=== PATIENT | male | born 1960 | race Caucasian/White ===

== ENCOUNTER 2018-09-03 09:38 | Inpatient (IN) ==
[2018-09-03] MEDS ORDERED: Sod Chloride 0.9% Inj 1,000 ML IV.CONT ONE (12:50)
[2018-09-03] MEDS ORDERED: Clindamycin 600 mg/NS Premix 600 MG/50 ML PIGGYBACK IV.SIG SCH (13:00)
--- NOTE | 2018-09-03 13:18 | P.CONNP ---
History of Present Illness Service: Nephrology Consult date: 09/03/18 Requesting Physician: Fermín Staley Reason for Consult: End-stage renal disease Primary Care Provider: UNKNOWN History of Present Illness: Patient is a 58-year-old white male with history of end-stage renal disease due to hypertension, he received kidney transplant in December 1999 which failed in November 2012, he is doing hemodialysis, he states that he goes on Sunday and Sunday and was on dialysis for 2 hours and was taken off as kidney offered came, he denies any chest pain shortness of breath palpitations, he does have slight cough and postnasal drip which she attributes to seasonal allergies, he denies any fever or chills. Review of Systems Constitutional: Denies anorexia, Denies body ache(s), Denies chills, Denies daytime sleepiness, Denies excessive sweating, Denies fatigue, Denies fever(s), Denies headache(s), Denies increased appetite, Denies lack of energy, Denies malaise, Denies night sweats, Denies weakness, Denies weight gain, Denies weight loss, Denies other Eyes: Denies blind spots, Denies blurry vision, Denies bulging eyes, Denies change in vision, Denies double vision, Denies discharge, Denies dry eyes, Denies floaters, Denies irritation, Denies itchy eyes, Denies loss of vision, Denies pain, Denies requires corrective lenses, Denies sensitivity to light, Denies other Ears, Nose, Mouth, and Throat: Reports other (Postnasal drip) Cardiovascular: Denies chest pain, Denies chest pain at rest, Denies chest pain with activity, Denies excessive sweating, Denies fainting, Denies fast heart rate, Denies foot swelling, Denies generalized swelling, Denies irregular heart rhythm, Denies leg pain with activity, Denies leg sores, Denies leg swelling, Denies lightheadedness, Denies radiating jaw, neck or arm pain, Denies rapid, pounding, or irregular heartbeat, Denies shortness of breath, Denies shortness of breath with activity, Denies shortness of breath when lying down, Denies shortness of breath causing sudden awakening, Denies slow heart rate, Denies other Respiratory: Reports cough (Dry) Genitourinary: Reports other (On hemodialysis) Musculoskeletal: Denies abnormal walking, Denies back pain, Denies body aches, Denies decreased muscle mass, Denies deformity, Denies joint pain, Denies joint swelling, Denies limited joint movement, Denies loss of height, Denies muscle cramps, Denies muscle weakness, Denies neck pain, Denies numbness, Denies radiating pain into limb, Denies stiffness, Denies tingling, Denies other Skin/Breast: Denies acne, Denies bleeding lesions, Denies boil, Denies breast swelling, Denies breast skin changes, Denies breast pain, Denies breast lump, Denies change in breast shape, Denies change in hair, Denies change in skin color, Denies changing lesions, Denies dry skin, Denies excessive hair growth, Denies hair loss, Denies itching, Denies lesions, Denies nail changes, Denies new lesions, Denies nipple discharge, Denies non-healing lesions, Denies redness , Denies sensitivity to light, Denies rash, Denies skin pain, Denies skin ulcer , Denies sores, Denies stretch welsh, Denies unusual bruising, Denies wounds, Denies yellowing of the skin, Denies other Neurologic: Denies abnormal hearing, Denies abnormal movements, Denies abnormal speech, Denies abnormal walking, Denies behavioral changes, Denies burning sensations, Denies confusion, Denies dizziness, Denies fainting, Denies frequent falls, Denies headache(s), Denies lack of coordination, Denies localized weakness, Denies loss of vision, Denies memory loss, Denies numbness, Denies other visual disturbances, Denies radiating pain, Denies restless legs, Denies convulsions, Denies seizure-like activity, Denies sensory deficit, Denies tingling, Denies tingling/numbness/burning sensations, Denies tremor(s), Denies unsteadiness, Denies weakness, Denies other Psychiatric: Denies abnormal sleep pattern, Denies anxiety, Denies behavioral changes, Denies change in appetite, Denies change in sex drive, Denies confusion , Denies depression, Denies difficulty concentrating, Denies hearing things others do not hear, Denies hopelessness, Denies irritability, Denies lack of enjoyment, Denies memory loss, Denies mood swings, Denies panic attacks, Denies paranoia, Denies seeing things others do not see, Denies sensing things others do not sense, Denies tactile hallucinations, Denies thoughts of hurting/killing others, Denies thoughts of hurting/killing yourself, Denies other Endocrine: Denies cold intolerance, Denies excessive sweating, Denies flushing, Denies heat intolerance, Denies increased hunger, Denies increased thirst, Denies increased urination, Denies rapid, pounding, or irregular heartbeat, Denies other Allergic/Immunologic: Denies GI upset with certain foods, Denies hives, Denies itchy eyes, Denies lip swelling, Denies seasonal runny nose, Denies throat swelling, Denies tongue swelling, Denies wheezing, Denies other PMFSH - Medical History Medical History: Medical History (Last Reviewed 09/03/18 @ 13:15 by Morgan Ku MD) AVF (arteriovenous fistula) Deep vein blood clot of left lower extremity Diabetes mellitus HTN (hypertension) Kidney transplant failure Pneumonia Squamous cell carcinoma of skin of left lower extremity - Surgical History Surgical History: Surgical History (Last Reviewed 09/03/18 @ 13:15 by Morgan Ku MD) H/O elbow surgery Transplant recipient - Family History Family History: Family History (Last Reviewed 09/03/18 @ 13:16 by Morgan Ku MD) Mother Kidney failure HTN (hypertension) Sister Kidney failure Uncle Kidney failure - Social History I have reviewed the patient's Social History: Yes - Tobacco History Tobacco Use In Past 30 Days: No Medications and Allergies Active Medications: Active Medications Clindamycin/Sodium Chloride (Cleocin 600 Mg/Ns Premix) 600 mg in 50 mls @ 100 mls/hr 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 Stop: 09/06/18 12:51 Sodium Chloride (Ns Inj) 1,000 mls @ 40 mls/hr IV.CONT .Q24H ONE Stop: 09/04/18 12:49 Mycophenolate Mofetil (Cellcept) 1,000 mg PO ONCE NANETTE Stop: 09/06/18 12:51 Allergies Allergy/AdvReac Type Severity Reaction Status Date / Time piperacillin Allergy Severe Facial Unverified 06/06/17 01:37 Swelling tazobactam Allergy Severe Facial Unverified 06/06/17 01:37 Swelling Home Medications Medication Instructions Recorded Confirmed Type lanthanum [Fosrenol] 1,000 mg PO TID 05/15/18 05/15/18 History metoprolol succinate [Toprol XL] 100 mg PO DAILY 05/15/18 05/15/18 History nifedipine 60 mg PO DAILY 05/15/18 05/15/18 History Exam Narrative: Physical exam GENERAL: Well-nourished, well-developed patient. SKIN: Warm and dry. HEAD: Normocephalic. EYES: No scleral icterus. No injection or drainage. NECK: Supple, trachea midline. No JVD or lymphadenopathy. CARDIOVASCULAR: Regular rate and rhythm without murmurs, gallops, or rubs. RESPIRATORY: Breath sounds equal bilaterally. No accessory muscle use. GASTROINTESTINAL: Abdomen soft, non-tender, nondistended. EXTREMITIES: As above AV fistula left arm, chronic elbow swelling NEUROLOGICAL: Awake, alert, and oriented x 3. Non-focal. Assessment and Plan - Assessment (1) ESRD (end stage renal disease) on dialysis Code(s): N18.6 - End stage renal disease; Z99.2 - Dependence on renal dialysis Status: Acute (2) HTN (hypertension) Code(s): I10 - Essential (primary) hypertension Status: Acute - Plan Patient has received 2 hours of hemodialysis, he is doing well do not appear to be fluid overloaded, will check the blood work and it is likely that he may not need more dialysis We will check blood work and chest x-ray He can proceed with transplant kidney offer Discussed with Dr. Staley
--- NOTE | 2018-09-03 13:46 | P.HPIM ---
History of Present Illness Primary Care Physician: UNKNOWN Chief Complaint: kidney transplant History of Present Illness: Patient is a very pleasant 58-year-old white male with history of end-stage renal disease due to hypertension, he received kidney transplant in December 1999 which failed in November 2012, he is on HD Sunday and Sunday. Had dialysis for 2 hours in the morning today prior to admission. He is here for kidney transplant. Dr Staley surgeon is following. He denies any chest pain, shortness of breath, palpitations. Reports minimal cough and postnasal drip which she attributes to seasonal allergies, he denies any fever or chills. No n/ v/d/c. Inpatient Certification: I certify that the inpatient services were ordered in accordance with Medicare regulations governing the order. This includes certification that hospital inpatient services are reasonable and necessary and in the case of services not specified as inpatient-only under 42 CFR 419.22(n), that they are appropriately provided as inpatient services in accordance to with the 2-midnight benchmark under 43 CFR 412.3(e) Estimated Total Length of Stay (Days): 5 Plans for Post Hospital Care: Home Review of Systems All other systems reviewed negative except as stated in HPI PMFSH - History History Provided By: Patient, Family Member, Medical Record - Medical History Medical History: Medical History (Last Reviewed 09/03/18 @ 13:44 by Kirti Minor MD) AVF (arteriovenous fistula) Deep vein blood clot of left lower extremity Diabetes mellitus HTN (hypertension) Kidney transplant failure Pneumonia Squamous cell carcinoma of skin of left lower extremity - Surgical History Surgical History: Surgical History (Last Reviewed 09/03/18 @ 13:44 by Kirti Minor MD) H/O elbow surgery Transplant recipient - Family History Family History: Family History (Last Reviewed 09/03/18 @ 13:44 by Kirti Minor MD) Mother HTN (hypertension) Kidney failure Sister Kidney failure Uncle Kidney failure - Social History I have reviewed the patient's Social History: Yes - Tobacco History Tobacco Use In Past 30 Days: No - Alcohol History How Often Do You Have a Drink Containing Alcohol: Never - Substance Use History Substance History: No History of Abuse - Travel History History of Recent Travel: No Recent Travel in the [place] Within the Last 8 Weeks: No Recent Travel Out of the Country Within the Last 8 Weeks: No Medications and Allergies Active Medications: Active Medications Atorvastatin Calcium (Lipitor) 40 mg PO HS [facility] Clindamycin/Sodium Chloride (Cleocin 600 Mg/Ns Premix) 600 mg in 50 mls @ 100 mls/hr 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 [facility] Stop: 09/06/18 12:51 Sodium Chloride (Ns Inj) 1,000 mls @ 40 mls/hr IV.CONT .Q24H ONE Stop: 09/04/18 12:49 Metoprolol Tartrate (Lopressor) 100 mg PO DAILY [facility] Mycophenolate Mofetil (Cellcept) 1,000 mg PO ONCE [facility] Stop: 09/06/18 12:51 Allergies Allergy/AdvReac Type Severity Reaction Status Date / Time piperacillin Allergy Severe Facial Verified 09/03/18 15:38 Swelling tazobactam Allergy Severe Facial Verified 09/03/18 15:38 Swelling Home Medications Medication Instructions Recorded Confirmed Type lanthanum [Fosrenol] 1,000 mg PO TIDAC 05/15/18 09/03/18 History metoprolol succinate [Toprol XL] 100 mg PO 3XW 05/15/18 09/03/18 History atorvastatin 40 mg PO DAILY 09/03/18 09/03/18 History Exam Narrative: GENERAL: Very pleasant 58 yo male, well nourished well developed patient , in nad. SKIN: Warm and dry. HEAD: Atraumatic. Normocephalic. EYES: Pupils equal and round. No scleral icterus. No injection or drainage. ENT: No nasal bleeding or discharge. Mucous membranes pink and moist. NECK: Trachea midline. No JVD. CARDIOVASCULAR: Regular rate and rhythm. RESPIRATORY: No accessory muscle use. Clear to auscultation. Breath sounds equal bilaterally. GASTROINTESTINAL: Abdomen soft, non-tender, nondistended. Hepatic and splenic margins not palpable. MUSCULOSKELETAL: AV Fistula left arm , + bruit. Extremities without clubbing, cyanosis, or edema. No obvious deformities. NEUROLOGICAL: Awake and alert. No obvious cranial nerve deficits. Motor grossly within normal limits. Five out of 5 muscle strength in the arms and legs. Normal speech. PSYCHIATRIC: Appropriate mood and affect; insight and judgment normal. Results - Labs CBC & Chem 7: 09/03/18 13:32 09/03/18 13:32 Caprini VTE Risk Assessment Caprini VTE Risk Assessment: No/Low Risk (score <= 1) Caprini Risk Assessment Model: Point Value = 1 Point Value = 2 Point Value = 3 Point Value = 5 Age 41-60 Minor surgery BMI > 25 kg/m2 Swollen legs Varicose veins or History of unexplained or recurrent spontaneous Oral contraceptives or hormone replacement Sepsis (< 1 month) Serious lung disease, including pneumonia (< 1 month) Abnormal pulmonary function Acute myocardial infarction Congestive heart failure (< 1 month) History of inflammatory bowel disease Medical patient at bed rest Age 61-74 Arthroscopic surgery Major open surgery (> 45 min) Laparoscopic surgery (> 45 min) Malignancy Confined to bed (> 72 hours) Immobilizing plaster cast Central venous access Age >= 75 History of VTE Family history of VTE Factor V Leiden Prothrombin [id number] Lupus anticoagulant Anticardiolipin antibodies Elevated serum homocysteine Heparin-induced thrombocytopenia Other congenital or acquired thrombophilia Stroke (< 1 month) Elective arthroplasty Hip, pelvis, or leg fracture Acute spinal cord injury (< 1 month) Prophylaxis Regimen: Total Risk Factor Score Risk Level Prophylaxis Regimen 0-1 Low Early ambulation 2 Moderate Order ONE of the following: *Sequential Compression Device (SCD) *Heparin 5000 units SQ BID 3-4 Higher Order ONE of the following medications: *Heparin 5000 units SQ TID *Enoxaparin/Lovenox 40 mg SQ daily (WT < 150 kg, CrCl > 30 mL/min) *Enoxaparin/Lovenox 30 mg SQ daily (WT < 150 kg, CrCl > 10-29 mL/min) *Enoxaparin/Lovenox 30 mg SQ BID (WT < 150 kg, CrCl > 30 mL/min) AND/OR *Sequential Compression Device (SCD) 5 or more Highest Order ONE of the following medications: *Heparin 5000 units SQ TID (Preferred with Epidurals) *Enoxaparin/Lovenox 40 mg SQ daily (WT < 150 kg, CrCl > 30 mL/min) *Enoxaparin/Lovenox 30 mg SQ daily (WT < 150 kg, CrCl > 10-29 mL/min) *Enoxaparin/Lovenox 30 mg SQ BID (WT < 150 kg, CrCl > 30 mL/min) AND *Sequential Compression Device (SCD) Assessment and Plan - Plan ESRD (end stage renal disease) on dialysis HTN (hypertension) s/p 2 hours of hemodialysis in the morning FLORIST Check CBC, BMP Check chest x-ray He can proceed with transplant kidney offer per Dr Ku Plan for kidney transplant per surgeon DVT ppx per surgeon Discussed Condition With: patient, family- at bedside, Dr Staley transplant surgeon
[2018-09-03 14:01] LABS: Baso % (Auto) 0.9 % (0.0-2.0); Eos # (Auto) 0.3 th/mm3 (0.0-0.4); Eos % (Auto) 4.7 % (0.0-4.0); Hematocrit 40.6 % (39.0-51.0); Hemoglobin 13.5 gm/dL (13.0-17.0); Lymph # (Auto) 1.5 th/mm3 (1.0-4.8); Lymph % (Auto) 27.1 % (9.0-44.0); Mean Corpuscular HGB Conc 33.2 % (32.0-36.0); Mean Corpuscular Hemoglobin 30.7 pg (27.0-34.0); Mean Corpuscular Volume 92.6 fL (80.0-100.0); Mean Platelet Volume 7.7 fL (7.0-11.0); Mono # (Auto) 0.6 th/mm3 (0.0-0.9); Mono % (Auto) 11.6 % (0.0-8.0); Neut % (Auto) 55.7 % (16.0-70.0); Platelet Count 180 th/mm3 (150-450); Red Blood Count 4.39 mil/mm3 (4.50-5.90); Red Cell Distribution Width 16.8 % (11.6-17.2); White Blood Count 5.4 th/mm3 (4.0-11.0)
[2018-09-03 14:08] LABS: Activated Partial Thrombo Time 27.6 sec (23.4-31.7); Prothrombin Time 10.4 sec (9.8-11.6)
[2018-09-03 14:14] LABS: Alkaline Phosphatase 121 U/L (45-117)
[2018-09-03 14:25] LABS: Alanine Aminotransferase 23 U/L (12-78); Albumin 3.4 g/dL (3.4-5.0); Anion Gap 11 meq/L (5-15); Aspartate Aminotransferase 15 U/L (15-37); Blood Urea Nitrogen 86 mg/dL (7-18); Calcium 8.5 mg/dL (8.5-10.1); Carbon Dioxide 28.5 meq/L (21.0-32.0); Chloride 100 meq/L (98-107); Glomerular Filtration Rate 5 mL/min (>89); Glucose,Random 83 mg/dL (74-106); Potassium 5.4 meq/L (3.5-5.1); Sodium 139 meq/L (136-145)
--- NOTE | 2018-09-03 14:41 | XR ---
EXAM DATE: 09/03/2018 2:38 PM EST AGE/SEX: 58 years / Male INDICATIONS: Evaluate for pneumonia, pneumothorax, or communicable disease. Pre op for kidney transp lant. CLINICAL DATA: This is the patient's initial encounter. Patient reports that signs and symptoms have been present for 1 day and indicates a pain score of 0/10. MEDICAL/SURGICAL HISTORY: Deep venous thrombosis. Diabetes. Hypertension. Renal transplant. COMPARISON: No prior exams available for comparison. FINDINGS: The heart and mediastinal contours are within normal limits. There are chronic interstitial changes w ithin the pulmonary parenchyma. There is no pleural effusion. The visualized bony structures are vincent sly intact. CONCLUSION: Chronic appearing interstitial fibrotic changes within the pulmonary parenchyma. No focal or segmenta l pneumonia. Electronically signed by: Jayy Crawford MD 09/03/2018 2:39 PM EST
--- NOTE | 2018-09-03 15:23 | P.CONTS ---
History of Present Illness Service: Transplant Surgery Consult date: 09/03/18 Requesting Physician: Kirti Minor Reason for Consult: Admission for possible donor renal transplant Primary Care Provider: UNKNOWN Chief Complaint: ESRD History of Present Illness: Mr Greg Gonzalez is a 58 year old male with the primary diagnosis of hypertension who completed a kidney transplant evaluation and was approved by our Kidney Listing Committee. A possible kidney donor has been found for him (final transplant crossmatch is pending). Donor UNOS ID: [id number]. 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 His last dialysis was this morning for 2 hours. And the time of admission, patient has been anuric for a few years. In the recent days he denies any fevers, recent hospitalizations, and any significant change in his health since he was last seen in our [facility]. Review of Systems Constitutional: Denies anorexia, Denies body ache(s), Denies chills, Denies daytime sleepiness, Denies excessive sweating, Denies fatigue, Denies fever(s), Denies headache(s), Denies increased appetite, Denies lack of energy, Denies malaise, Denies night sweats, Denies weakness, Denies weight gain, Denies weight loss, Denies other Eyes: Denies blind spots, Denies blurry vision, Denies bulging eyes, Denies change in vision, Denies double vision, Denies discharge, Denies dry eyes, Denies floaters, Denies irritation, Denies itchy eyes, Denies loss of vision, Denies pain, Denies requires corrective lenses, Denies sensitivity to light, Denies other Ears, Nose, Mouth, and Throat: Denies abnormal hearing, Denies bleeding gums, Denies bad breath, Denies change in voice, Denies dental pain, Denies difficulty swallowing, Denies dizziness, Denies dry mouth, Denies ear discharge , Denies ear pain, Denies facial pain, Denies headache(s), Denies hearing loss, Denies hoarseness, Denies lip swelling, Denies nosebleed, Denies mouth lesions, Denies mouth pain, Denies nasal congestion, Denies nasal discharge, Denies nasal obstruction, Denies nasal trauma, Denies neck lump, Denies neck pain, Denies nose pain, Denies pain with swallowing, Denies poor balance, Denies post nasal drip, Denies ringing in the ears, Denies sinus pain, Denies sinus pressure , Denies sore throat, Denies throat swelling, Denies tongue swelling, Denies other Cardiovascular: Denies chest pain, Denies chest pain at rest, Denies chest pain with activity, Denies excessive sweating, Denies fainting, Denies fast heart rate, Denies foot swelling, Denies generalized swelling, Denies irregular heart rhythm, Denies leg pain with activity, Denies leg sores, Denies leg swelling, Denies lightheadedness, Denies radiating jaw, neck or arm pain, Denies rapid, pounding, or irregular heartbeat, Denies shortness of breath, Denies shortness of breath with activity, Denies shortness of breath when lying down, Denies shortness of breath causing sudden awakening, Denies slow heart rate, Denies other Respiratory: Reports cough Comments: nonproductive (? secondary to post-nasal drip from allergies) Gastrointestinal: Denies abdominal pain, Denies belching, Denies black, tarry stools, Denies bloating, Denies bright, red blood in stools, Denies change in bowel habits, Denies constant urge to pass stool, Denies change in stools, Denies coffee ground vomit, Denies constipation, Denies cramping, Denies difficulty swallowing, Denies excessive passing of gas, Denies feeling full early, Denies heartburn, Denies incontinent of stools, Denies loose stools, Denies nausea, Denies pain with swallowing, Denies vomiting, Denies vomiting blood, Denies other Genitourinary: Denies blood in semen, Denies blood in urine, Denies decreased urination, Denies difficulty urinating, Denies difficulty with ejaculations, Denies erectile dysfunction, Denies genital lesions, Denies genital pain, Denies painful urination, Denies side pain, Denies frequent nighttime urination , Denies painful ejaculations, Denies penile discharge, Denies scrotal swelling , Denies testicle lump, Denies testicle pain, Denies urinary frequency, Denies urinary hesitancy, Denies urinary incontinence, Denies urinary urgency, Denies other Comments: anuric Musculoskeletal: Denies abnormal walking, Denies back pain, Denies body aches, Denies decreased muscle mass, Denies deformity, Denies joint pain, Denies joint swelling, Denies limited joint movement, Denies loss of height, Denies muscle cramps, Denies muscle weakness, Denies neck pain, Denies numbness, Denies radiating pain into limb, Denies stiffness, Denies tingling, Denies other Skin/Breast: Denies acne, Denies bleeding lesions, Denies boil, Denies breast swelling, Denies breast skin changes, Denies breast pain, Denies breast lump, Denies change in breast shape, Denies change in hair, Denies change in skin color, Denies changing lesions, Denies dry skin, Denies excessive hair growth, Denies hair loss, Denies itching, Denies lesions, Denies nail changes, Denies new lesions, Denies nipple discharge, Denies non-healing lesions, Denies redness , Denies sensitivity to light, Denies rash, Denies skin pain, Denies skin ulcer , Denies sores, Denies stretch welsh, Denies unusual bruising, Denies wounds, Denies yellowing of the skin, Denies other Neurologic: Denies abnormal hearing, Denies abnormal movements, Denies abnormal speech, Denies abnormal walking, Denies behavioral changes, Denies burning sensations, Denies confusion, Denies dizziness, Denies fainting, Denies frequent falls, Denies headache(s), Denies lack of coordination, Denies localized weakness, Denies loss of vision, Denies memory loss, Denies numbness, Denies other visual disturbances, Denies radiating pain, Denies restless legs, Denies convulsions, Denies seizure-like activity, Denies sensory deficit, Denies tingling, Denies tingling/numbness/burning sensations, Denies tremor(s), Denies unsteadiness, Denies weakness, Denies other Psychiatric: Denies abnormal sleep pattern, Denies anxiety, Denies behavioral changes, Denies change in appetite, Denies change in sex drive, Denies confusion , Denies depression, Denies difficulty concentrating, Denies hearing things others do not hear, Denies hopelessness, Denies irritability, Denies lack of enjoyment, Denies memory loss, Denies mood swings, Denies panic attacks, Denies paranoia, Denies seeing things others do not see, Denies sensing things others do not sense, Denies tactile hallucinations, Denies thoughts of hurting/killing others, Denies thoughts of hurting/killing yourself, Denies other Endocrine: Denies cold intolerance, Denies excessive sweating, Denies flushing, Denies heat intolerance, Denies increased hunger, Denies increased thirst, Denies increased urination, Denies rapid, pounding, or irregular heartbeat, Denies other Hematologic/Lymphatic: Denies easy bleeding, Denies easy bruising, Denies enlarged lymph nodes, Denies other Allergic/Immunologic: Denies GI upset with certain foods, Denies hives, Denies itchy eyes, Denies lip swelling, Denies seasonal runny nose, Denies throat swelling, Denies tongue swelling, Denies wheezing, Denies other PMFSH - History History Provided By: Patient, Family Member, Medical Record - Medical History Medical History: Medical History (Last Reviewed 09/03/18 @ 15:17 by Fermín Staley MD) AVF (arteriovenous fistula) Deep vein blood clot of left lower extremity Diabetes mellitus HTN (hypertension) Kidney transplant failure Pneumonia Squamous cell carcinoma of skin of left lower extremity - Surgical History Surgical History: Surgical History (Last Reviewed 09/03/18 @ 15:17 by Fermín Staley MD) H/O elbow surgery Transplant recipient - Family History Family History: Family History (Last Reviewed 09/03/18 @ 15:17 by Fermín Staley MD) Mother Kidney failure HTN (hypertension) Sister Kidney failure Uncle Kidney failure - Social History I have reviewed the patient's Social History: Yes - Tobacco History Second Hand Smoke Exposure: No Tobacco Use In Past 30 Days: No Smoking Status: Never smoker - Alcohol History How Often Do You Have a Drink Containing Alcohol: Never - Substance Use History Substance History: No History of Abuse - Travel History History of Recent Travel: No Recent Travel in the [place] Within the Last 8 Weeks: No Recent Travel Out of the Country Within the Last 8 Weeks: No - Immunization History Tetanus Immunization: <5 Years Hx Influenza Vaccine This Season: No Pediatric Immunizations Up to Date: Yes (N/A) Medications and Allergies Active Medications: Active Medications Atorvastatin Calcium (Lipitor) 40 mg PO HS NANETTE Clindamycin/Sodium Chloride (Cleocin 600 Mg/Ns Premix) 600 mg in 50 mls @ 100 mls/hr IV.SIG HEAD MILLER NANETTE Stop: 09/06/18 12:51 Sodium Chloride (Ns Inj) 1,000 mls @ 40 mls/hr IV.CONT .Q24H ONE Stop: 09/04/18 12:49 Metoprolol Succinate (Toprol Xl) 100 mg PO DAILY NANETTE Mycophenolate Mofetil (Cellcept) 1,000 mg PO ONCE NANETTE Stop: 09/06/18 12:51 Allergies Allergy/AdvReac Type Severity Reaction Status Date / Time piperacillin Allergy Severe Facial Unverified 06/06/17 01:37 Swelling tazobactam Allergy Severe Facial Unverified 06/06/17 01:37 Swelling Home Medications Medication Instructions Recorded Confirmed Type lanthanum [Fosrenol] 1,000 mg PO TID 05/15/18 05/15/18 History metoprolol succinate [Toprol XL] 100 mg PO DAILY 05/15/18 05/15/18 History Physical Exam Vital signs: Vital Signs 09/03/18 14:06 Temperature 97.6 F Pulse Rate 72 Respiratory Rate 18 Blood Pressure 151/82 H Pulse Oximetry 98 Intake & Output 09/02/18 09/03/18 09/03/18 18:59 06:59 18:59 Weight 100.5 kg Other: Date of Last Bowel Movement 09/02/18 Weight On Admission 100.5 kg - Constitutional no acute distress - Routine HEENT Exam Head: Present: normocephalic, atraumatic Eye: Present: EOMI ENT: Present: mucous membranes moist - Routine Neck Exam Present: supple, full ROM - Routine Respiratory Exam Present: CTA bilaterally - Routine Cardiovascular Exam Present: RRR, S1, S2 - Routine Abdominal Exam Present: soft, normoactive bowel sounds - Routine Extremities Exam Comments: AV fistula left forearm. Palpable DP/PT bilaterally. ? somewhat diminished femoral pulses (? due to body habitus) - Routine Skin Exam Present: intact - Routine Neurological Exam Present: alert, oriented X3 - Detailed Neurological Exam: Coma Scale Verbal Response: Oriented - Routine Psychiatric Exam Present: normal affect, normal thought process Assessment and Plan - Assessment (1) ESRD (end stage renal disease) on dialysis Code(s): N18.6 - End stage renal disease; Z99.2 - Dependence on renal dialysis Status: Acute (2) HTN (hypertension) Code(s): I10 - Essential (primary) hypertension Status: Acute - Plan Mr Greg Gonzalez has ESRD secondary to htn, and is being admitted for possible donor kidney transplantation. The patient will be consented for procedure and transfusion A PHS increased Risk Consent is not required. The patient is being admitted to the Hospitalists Service. The Transplant Nephrology Service will be consulted. The patient will be assigned to Case Management/Inpatient Status
[2018-09-03] MEDS ORDERED: Sod Chloride 0.9% Inj 1,000 ML IV.CONT PRN (15:29)
[2018-09-03] MEDS ORDERED: Sod Chloride 0.9% Inj 1,000 ML OTHER PRN ×2 (15:29)
[2018-09-03] MEDS ORDERED: Acetaminophen 325 MG Tablet PO PRN (15:29)
[2018-09-03] MEDS ORDERED: Gelatin 12 MM/7 MM Topical Foam TOPICAL PRN (15:29)
[2018-09-03] MEDS ORDERED: Albumin Human 25% Inj 100 ML IV.SIG PRN (15:29)
[2018-09-03] MEDS ORDERED: Acetaminophen 325 MG Tablet PO ONE (15:48)
[2018-09-03] MEDS ORDERED: Hydrocortisone Sod Succinate 100 MG Vial IV.PUSH PRN (15:48)
[2018-09-03] MEDS ORDERED: Heparin 10,000 UNITS/10 ML Vial (for IV use) ONE (17:56)
[2018-09-03] MEDS ORDERED: MethylPREDNISolone Sod Succinate Inj 125 MG/2 ML Vial ONE (19:01)
[2018-09-03] MEDS ORDERED: [UNRECOGNIZED DRUG - OTHER] ONE (19:20)
[2018-09-03] MEDS ORDERED: Furosemide Inj 10 ML ONE (19:24)
[2018-09-03] MEDS ORDERED: MethylPREDNISolone Sod Succinate Inj 125 MG/2 ML Vial IV.SIG ONE (20:00)
[2018-09-03] MEDS ORDERED: MethylPREDNISolone Sod Suc Inj 500 MG in Sodium Chlor 0.9% Inj 100 ML IV.SIG ONE (20:00)
[2018-09-03] MEDS ORDERED: ANTITHYMOCYTE IG IV.SIG ONE (20:00)
[2018-09-03] MEDS ORDERED: SODIUM CHLOR 0.9% IV.SIG ONE (20:00)
[2018-09-03] MEDS ORDERED: diphenhydrAMINE HCl 50 MG/ML VIAL IV.PUSH ONE (22:49)
[2018-09-03] MEDS ORDERED: fentaNYL Citrate Inj 100 MCG/2 ML Ampul ONE (22:53)
[2018-09-03] MEDS ORDERED: Albumin Human 5% Inj 500 ML IV.SIG ONE (23:05)
[2018-09-04] MEDS ORDERED: Morphine Inj 4 MG/ML Vial IV.SIG ONE (01:28)
[2018-09-04] MEDS ORDERED: Naloxone Inj 0.4 MG/ML Vial IV.PUSH PRN (01:28)
[2018-09-04] MEDS ORDERED: Dextrose 50% in Water 50 ML Vial IV.PUSH PRN ×2 (01:28→09:44)
--- NOTE | 2018-09-04 01:33 | P.OP ---
Preoperative Diagnosis: desire for renal transplant due to ESRD Postoperative Diagnosis: donor renal transplant to left iliac fossa for ESRD Date of procedure: 09/03/18 (Operation began on 09/03/18 and completed on ) Procedure: donor renal transplant, backbench preparation of allograft, venous reconstruction X 2 of donor caval extension graft, ureteral stent placement INDICATIONS: Mr. Gonzalez is a 58 year-old who has end stage renal disease and wishes to have a kidney transplant after his first one failed several years ago. He was thoroughly evaluated in our clinic and was found to be an adequate candidate for transplant surgery. 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 He had a high CPRA of 99% and a regional offer became available today. The crossmatch was acceptable so we proceeded to surgery. PROCEDURE: After informed consent was obtained from the patient prior to surgery and the ABO was reviewed via primary source times two for each the recipient and donor prior to surgery today, the recipient was brought into the OR and safely placed under general endotracheal anesthesia after the debriefing was performed. The ABO verification form was in the room with the patient and the renal allograft. The [employer] file was checked and the donor ABO verified X 2 and recorded onto the ABO form with the Candidate ABO verified X 2 in EPIC and recorded on the ABO verification form. The candidate's name was seen on the match run in [employer]. The donor blood type was O and the recipient blood type O. As the anesthesia service was preparing the patient, I prepared the renal allograft on the back table by removing all extraneous connective tissue. There was a single artery, vein and ureter of sufficient length. Since this was a right kidney, the cephalad and caudal cava were reconstructed. I needed to suture the cephalad portion of the cava since it was cut close to the right renal vein and the lower cava we could staple. The kidney was stored in sterile ice with preservative solution and covered with sterile towel. The patient had a Donohue catheter placed sterilely, and the abdomen was prepped and draped in the usual sterile fashion. We then did our standard surgical time out, reviewing the patient, allergies, antibiotics, operation to be performed, immunosuppression medications and ABO of the donor and recipient. All agreed and we proceeded. The anesthesia service acknowledged the administration of the IV Solumedrol 250 mg and Thymoglobulin infusiton. We then made the left lower quadrant oblique incision from an area about two centimeters medial to the anterior iliac spine to the pubic symphysis. We were able to go through the skin, subcutaneous tissue, fascia, and into the right retroperitoneal space. We were able to stay out of the peritoneum throughout the entire operation. We kept the cord structures mobilized out of harm's way. We spared the epigastric vessels. We had excellent exposure of the external iliac artery and vein and carefully dissected these free of the nerve, keeping this lateral and out of harm's way. The vessels felt of very good caliber, and there was no obvious abnormality in the vein or the artery. We gave the patient 2,000 units of intravenous heparin, allowed this to circulate for three minutes. We used two vascular bulldog clamps on the iliac vein and opened the vein with the 11-blade, Merino scissors, and Hepflush. We anastomosed the donor renal vein to the recipient left external iliac vein using 5-0 Prolene in our four-quadrant standard technique. When this venous anastomosis was completed, we went ahead and placed a Satinsky vascular clamp on the left external iliac artery, opened into the iliac artery with the 11- blade. Then we used 5-0 Prolene, placing a cephalad stitch, and then we were able to anastomose the arteries under direct visualization in a continuous open fashion. When the arterial anastomosis was complete and tied, we went ahead and placed gentle vascular bull-dog clamps on the renal artery and renal vein proper, where we removed first the iliac vein clamps and allowed for flow across the venous anastomosis, and there was with excellent hemostasis. We then allowed for the distal artery to open. The anastomotic area opened nicely , signifying no technical issues. We then allowed for forward flow from the artery down the leg. There was excellent flow, again with no need for any suture repair across the anastomosis. We then removed the clamps from the renal artery and vein proper, allowed for flow into and out of the kidney, placed warm irrigation all around the kidney to allow it to go ahead and vasodilate nicely, and there was no need for any suture repairs. Hemostasis was obtained by the use of clips or ties as necessary. Electrocautery was used on the capsule as necessary. The kidney pinked up nicely. The patient was given our standard mannitol 25 gm as well as Lasix 100 mg IV and the second dose of Solumedrol 250 mg IV prior to reperfusion of the allograft. He tolerated this well. We then went ahead and placed the kidney into the left iliac fossa. It laid nicely and had good color. We then repositioned our Bookwalter retractor and had good exposure of the bladder. The antibiotic irrigant was flushed into the bladder. The bladder was small. We were able to safely enter into the bladder, place our PDS sutures. We then made sure the ureter laid in its correct position. We opened opposite its blood supply with the tenotomy scissors. We shortened it to the appropriate length and then we did our standard mary-ureterocystotomy using 6-0 PDS suture in a running technique. We did place a ureteral stent into the transplant ureter into the collecting system and it laid nicely and then into the bladder. When this was completed we placed two Lembert type sutures of 6-0 PDS. We tied these over a right angle so as not to obstruct. We had good hemostasis. We irrigated again with antibiotic solution. Again the kidney laid nicely in the left iliac fossa. The vessels were laying nicely , with no signs of any obstruction either inflow or outflow. We went ahead and did the count as we prepared to close the fascia. The count was correct. We went ahead and closed the fascia with running #1 PDS suture starting from each end of the wound and tying in the middle. We used some 3-0 Vicryl to reapproximate Silvestre's in an interrupted fashion. We then used Monocryl to approximate the skin. We had final instrument and sponge counts correct times two. It should be noted that I was scrubbed during the entire operation. Implants: ureteral stent Anesthesia: GETA Surgeon: Deacon Sarmiento MD was primary for back table bench preparation of allograft , reconstruction of venous anastomosis X 2, and 1st radiology assistant for the renal transplant; Dr. Staley was primary for renal transplant Estimated blood loss (mL): 100 Pathology: none sent Operation and Findings: good flow into renal allograft, small bladder
[2018-09-04] MEDS ORDERED: fentaNYL Citrate Inj 100 MCG/2 ML Ampul ONE (01:39)
[2018-09-04] MEDS: Dextrose 5%/NaCl 0.45% Inj 1,000 ML IV.CONT SCH (01:40)
[2018-09-04] MEDS ORDERED: *morphine SULFATE 4 MG/ML PERIprocedure ONLY ONE ×2 (01:51→02:10)
[2018-09-04 02:06] LABS: Hematocrit 37.4 % (39.0-51.0); Hemoglobin 12.3 gm/dL (13.0-17.0); Mean Corpuscular HGB Conc 32.8 % (32.0-36.0); Mean Corpuscular Hemoglobin 30.1 pg (27.0-34.0); Mean Corpuscular Volume 91.8 fL (80.0-100.0); Mean Platelet Volume 7.2 fL (7.0-11.0); Platelet Count 115 th/mm3 (150-450); Red Blood Count 4.08 mil/mm3 (4.50-5.90); Red Cell Distribution Width 16.8 % (11.6-17.2); White Blood Count 2.2 th/mm3 (4.0-11.0)
--- NOTE | 2018-09-04 02:24 | XR ---
EXAM DATE: 09/04/2018 2:11 AM EST AGE/SEX: 58 years / Male INDICATIONS: Central line placement. CLINICAL DATA: This is the patient's subsequent encounter. Patient reports that signs and symptoms h ave been present for 2 days and indicates a pain score of Nonresponsive. MEDICAL/SURGICAL HISTORY: . Deep venous thrombosis. Diabetes. Hypertension. . Renal transplant . COMPARISON: 09/03/2008.. FINDINGS: A single AP view of the chest demonstrates the lungs to be symmetrically aerated without evidence of mass, infiltrate or effusion. The cardiomediastinal contours are unremarkable. Osseous structures a re intact. There is been interval placement of a right internal jugular central venous line with tip projected over the superior vena cava. There is no pneumothorax. CONCLUSION: Interval placement of central venous line with no pneumothorax. Electronically signed by: David Ricks MD 09/04/2018 2:23 AM EST
--- NOTE | 2018-09-04 02:27 | P.OP ---
- Preoperative Diagnosis (1) ESRD (end stage renal disease) on dialysis (2) HTN (hypertension) - Postoperative Diagnosis (1) ESRD (end stage renal disease) on dialysis (2) HTN (hypertension) Date of procedure: 09/04/18 (Begun on 09/03/2018 and finished on 09/04/2018) Procedure: donor kidney transplant to left iliac fossa with neoureterocystostomy Implants: 6 x12 double j ureteral stent Anesthesia: GETA Surgeon: Fermín Staley MD Switchboard Operator Assistant: Deacon Sarmiento Estimated blood loss (mL): 100 IV fluids (mL): 1,800 Urine output (mL): 0 Operation and Findings: Cold ischemic time: 18 hours 7 minutes Warm ischemic time: 30 minutes Intra-Op Findings: No signifianct iliac artery calcifications. good flow into and out of renal allograft after reperfusion Informed consent was obtained from the patient prior to surgery and the ABO was reviewed via primary source for the recipient and donor prior to surgery today. Recipient was brought into the OR and safely placed under general endotracheal anesthesia after the debriefing was performed. The ABO verification form was in the room with the patient and the renal allograft. The [employer] file was checked and the donor ABO verified X 2 and recorded onto the ABO form with the Candidate ABO verified X 2 and recorded on the ABO verification form. The candidate's name was seen on the match run in [employer]. As the anesthesia service was preparing the patient, Dr Sarmiento prepared the renal allograft on the back table by removing all extraneous connective tissue. There was a single artery, vein and ureter of sufficient length. Since this was a right kidney, the cephalad and caudal cava was stapled. TPlease see his note for further details The kidney was stored in sterile ice with preservative solution and replaced in sterile container with a sterile towel for cover. The patient had a Donohue catheter placed sterilely, and the abdomen was prepped and draped in the usual sterile fashion. We then did our standard surgical time out, reviewing the patient, allergies, antibiotics, operation to be performed, immunosuppression medications and ABO of the donor and recipient. All agreed and we proceeded. The anesthesia service acknowledged the administration of the IV Solumedrol 250 mg and Thymoglobulin infusion. We then made a left lower quadrant oblique incision from an area about two centimeters medial to the anterior iliac spine to the pubic symphysis. We were able to go through the skin, subcutaneous tissue, fascia, and into the right retroperitoneal space. We repaired two small openings in the peritoneum with vicryl suture. We kept the cord structures mobilized out of harm's way. We spared the epigastric vessels. We had excellent exposure of the external iliac artery and vein and carefully dissected these free of the nerve, keeping this lateral and out of harm's way. The artery had no significant arteriosclerosis. The vein was normal. There was some mild to moderately excessive adhesion of the vein to the surrounding connective tissue and lymphatics. There was quite a bit of lymphatics noted.. We gave the patient 2,000 units of intravenous heparin, and allowed this to circulate for three minutes. We then place 2 bulldog clamps on the iliac vein and opened the vein with the 11-blade, Moody scissors, and Hepflush. We anastomosed the donor renal vein to the recipient right external iliac vein using 5-0 Prolene in our standard technique. When this venous anastomosis was completed, we went ahead and placed a DeBakey vascular clamp on the external iliac artery, opened into the iliac artery with the 11-blade. We extended the incision with a moody scissor. Then we used 5-0 Prolene, placing a cephalad and caudal stitch, and then we were able to anastomose the arteries under direct visualization. When the arterial anastomosis was complete and tied, we went ahead and placed gentle vascular bull-dog clamps on the renal artery and renal vein proper, where we removed first the iliac vein clamps and allowed for flow across the venous anastomosis, with excellent hemostasis. We then allowed for the distal artery to open. The anastomotic area opened nicely, signifying no technical issues. We then allowed for forward flow from the artery down the leg. There was excellent flow, again with no need for any suture repair across the anastomosis. We then removed the clamps from the renal artery and vein proper, allowing for flow into and out of the kidney, placed warm irrigation all around the kidney to allow it to go ahead and vasodilate nicely, and there was no need for any suture repairs. Hemostasis was obtained by the use of clips , cautery or ties as necessary. Electrocautery was used on the capsule as necessary. The kidney pinked up nicely. The patient was given our standard mannitol 25 gm as well as Lasix 100 mg IV and the second dose of Solumedrol 250 mg IV prior to reperfusion of the allograft. He tolerated this well. We then went ahead and placed the kidney into the left iliac fossa. It laid nicely and had good color. We then repositioned the Bookwalter retractor and had good exposure of the bladder. The antibiotic irrigant was flushed into the bladder. The bladder distended very nicely into our field. After cutting the ureter to the correct length, we opened it to match the bladder opening, and then placed 5-0 PDS suture at each end. We did place a ureteral stent into the transplant ureter into the collecting system and it laid nicely and then into the bladder. When this was completed we placed 2 Lembert type sutures of 5-0 PDS. There was some minima bleed ing areas and hemostasis was secured with clips, suture and/or cautery as needed We had good hemostasis. Again the kidney laid nicely in the left iliac fossa. The vessels were laying nicely, with no signs of any obstruction to either inflow or outflow. There was a good pulse in distal external iliac artery also as well as the renal artery. We went ahead and did the count as we prepared to close the fascia. The count was correct. We went ahead and closed the fascia with running #1 PDS suture starting from each end of the wound and tying in the middle. We then used subcuticular suture to approximate the skin. A Primapore dressing was then applied We had final instrument and sponge counts correct times two. .
[2018-09-04] MEDS: Morphine Inj 30 MG/30 ML PCA.VIAL PCA PRN ×2 (02:28→18:39)
[2018-09-04] MEDS: Sodium Chloride 0.45 % Inj 1,000 ML IV.CONT PRN ×2 (02:30→11:32)
[2018-09-04 02:35] LABS: Calcium 7.8 mg/dL (8.5-10.1); Carbon Dioxide 26.1 meq/L (21.0-32.0); Magnesium 2.1 mg/dL (1.5-2.5); Monocytes 1 % (0-8); Myelocytes 1 % (0-0); Phosphorus 4.8 mg/dL (2.5-4.9); Potassium 6.2 meq/L (3.5-5.1)
[2018-09-04 02:40] LABS: Ovalocytes 1+; Platelet Morphology Normal (Normal); Toxic Vacuolation Present
--- NOTE | 2018-09-04 03:05 | US ---
EXAM DATE: 09/04/2018 2:41 AM EST AGE/SEX: 58 years / Male INDICATIONS: Post renal transplant. CLINICAL DATA: This is the patient's initial encounter. Patient reports that signs and symptoms have been present for 1 day and indicates a pain score of 8/10. MEDICAL/SURGICAL HISTORY: . Diabetic. HTN. Right lower quadrant kidney transplant failure. S kin cancer. . Elbow surgery. Right and left lower quadrant Renal transplant. COMPARISON: No prior exams available for comparison. MEASUREMENTS: Transplant Kidney:__10.3 x 4.6 x 5.1 cm Location:__Left lower quadrant Arcuate Arteries Resistive Index: Upper - 0.60, 0.56 Mid - 0.69, 0.73 Lower - 0.72, 0.67 Main Renal Artery Velocity:__298.1 cm/sec Main Renal Vein:__Patent External Iliac Artery Velocity:__130.3 cm/sec External Iliac Vein:__Patent FINDINGS: Transplant Kidney: The transplant kidney is normal in size, shape and echogenicity with no focal les ion or hydronephrosis. There is a small amount of adjacent free fluid. Urinary Bladder: N/A Other: None. CONCLUSION: 1. The transplant kidney is unremarkable in appearance with no focal lesion or hydronephrosis. 2. There is a small amount of adjacent free fluid. 3. There is elevated velocity in the main renal artery. The renal artery and vein are patent. There are normal resistive indices. Electronically signed by: David Ricks MD 09/04/2018 3:04 AM EST
[2018-09-04] MEDS ORDERED: hydrALAZINE HCl Inj 20 MG/ML Vial ONE (08:29)
--- NOTE | 2018-09-04 08:47 | P.PNNP ---
Subjective Interval history: Patient had kidney transplant, doing well postoperatively had hyperkalemia He is passing good amount of urine follow-up BMP is pending Physical Exam Vital signs: Vital Signs 09/03/18 14:06 09/03/18 15:39 09/03/18 19:20 Temperature 97.6 F 98.4 F Pulse Rate 72 79 Respiratory Rate 18 16 Blood Pressure 151/82 H 165/100 H Pulse Oximetry 98 98 99 09/03/18 19:40 09/03/18 20:04 09/04/18 01:30 Temperature 98.6 F 97.8 F Pulse Rate 78 76 93 H Respiratory Rate 20 12 Blood Pressure 158/89 H 168/76 H Pulse Oximetry 95 95 09/04/18 01:45 09/04/18 01:53 09/04/18 02:00 Temperature Pulse Rate 80 79 Respiratory Rate 12 14 11 L Blood Pressure 145/67 H 153/73 H Pulse Oximetry 96 96 09/04/18 02:12 09/04/18 02:15 09/04/18 02:30 Temperature Pulse Rate 85 88 Respiratory Rate 14 11 L 11 L Blood Pressure 149/74 H 144/74 H Pulse Oximetry 97 96 09/04/18 02:45 09/04/18 02:58 09/04/18 03:00 Temperature Pulse Rate 90 92 H Respiratory Rate 12 12 20 Blood Pressure 134/69 138/66 Pulse Oximetry 95 95 09/04/18 03:07 09/04/18 04:12 09/04/18 04:18 Temperature 98.4 F 98.2 F Pulse Rate 88 94 H Respiratory Rate 12 16 Blood Pressure 125/64 135/80 Pulse Oximetry 97 94 L 94 L 09/04/18 07:00 Temperature 98.7 F Pulse Rate 79 Respiratory Rate 17 Blood Pressure 175/92 H Pulse Oximetry 99 Intake & Output 09/03/18 09/04/18 09/04/18 18:59 06:59 18:59 Intake Total 0 / 0 2300 / 2300 Output Total 1520 / 1520 150 / 150 Balance 0 / 0 780 / 780 -150 / -150 Weight 100.5 kg 102 kg Intake: IV 550 / 550 Thymoglobulin Inj 114 MG In NS 500 / 500 Inj 500 ML @ 83.333 mls/hr IV. SIG ONCE ONE Rx#:[id number] Cleocin 600 mg/NS Premix 600 mg 50 / 50 In 50 ml @ 100 mls/hr IV.SIG MOLECULAR BIOLOGIST [facility] Rx#:[id number] Oral 0 / 0 Anesthesia Amount 1750 / 1750 Output: Hemodialysis Amount 1000 / 1000 Estimated Blood Loss 100 / 100 Urine Amount (Catheter) 420 / 420 150 / 150 Indwelling Urethral Catheter 420 / 420 150 / 150 Other: Date of Last Bowel Movement 09/02/18 09/02/18 Weight On Admission 100.5 kg Narrative: GENERAL: Well-nourished, well-developed patient. SKIN: Warm and dry. HEAD: Normocephalic. EYES: No scleral icterus. No injection or drainage. NECK: Supple, trachea midline. No JVD or lymphadenopathy. CARDIOVASCULAR: Regular rate and rhythm without murmurs, gallops, or rubs. RESPIRATORY: Breath sounds equal bilaterally. No accessory muscle use. GASTROINTESTINAL: Abdomen postsurgical dressing on the left side. EXTREMITIES: As above NEUROLOGICAL: Awake, alert, and oriented x 3. Non-focal. - Urinary Catheter Management Indwelling Urethral Catheter Cath placed during this visit: yes Reason for continuing: Hourly intake/output Insertion date: 09/04/18 Insertion time: 21:35 Assessment and Plan - Assessment (1) ESRD (end stage renal disease) on dialysis Code(s): N18.6 - End stage renal disease; Z99.2 - Dependence on renal dialysis Status: Acute (2) HTN (hypertension) Code(s): I10 - Essential (primary) hypertension Status: Acute - Plan Patient has kidney transplantaround 1 a.m., came to the room around 3 AM doing well, potassium was 6.2 will follow on that pending labs from this morning Patient is making urine No acute distress Continue with Thymoglobulin/steroids today Blood pressure is high give metoprolol Continue to monitor for improvement
[2018-09-04] MEDS: Pantoprazole Inj 40 MG Vial IV.PUSH SCH (08:52)
[2018-09-04] MEDS: Docusate Sodium 100 MG Capsule PO SCH ×2 (08:52→21:27)
[2018-09-04] MEDS ORDERED: Metoprolol Tartrate 100 MG Tablet PO SCH (09:00)
[2018-09-04 09:14] LABS: Baso % (Auto) 0.5 % (0.0-2.0); Eos % (Auto) 0.1 % (0.0-4.0); Hematocrit 37.4 % (39.0-51.0); Hemoglobin 12.5 gm/dL (13.0-17.0); Lymph % (Auto) 0.4 % (9.0-44.0); Mean Corpuscular HGB Conc 33.6 % (32.0-36.0); Mean Corpuscular Volume 92.5 fL (80.0-100.0); Mean Platelet Volume 7.7 fL (7.0-11.0); Mono # (Auto) 0.2 th/mm3 (0.0-0.9); Mono % (Auto) 3.5 % (0.0-8.0); Neut # (Auto) 6.8 th/mm3 (1.8-7.7); Neut % (Auto) 95.5 % (16.0-70.0); Platelet Count 122 th/mm3 (150-450); Red Blood Count 4.04 mil/mm3 (4.50-5.90); Red Cell Distribution Width 16.3 % (11.6-17.2); White Blood Count 7.1 th/mm3 (4.0-11.0)
[2018-09-04 09:21] LABS: Calcium 7.7 mg/dL (8.5-10.1); Magnesium 2.1 mg/dL (1.5-2.5); Phosphorus 4.9 mg/dL (2.5-4.9); Potassium 5.9 meq/L (3.5-5.1)
[2018-09-04] MEDS ORDERED: Hydrocortisone Sod Succinate 100 MG Vial IV.PUSH PRN (09:39)
--- NOTE | 2018-09-04 09:46 | US ---
EXAM DATE: 09/04/2018 9:37 AM EST AGE/SEX: 58 years / Male INDICATIONS: Increase lab values. CLINICAL DATA: This is the patient's subsequent encounter. Patient reports that signs and symptoms h ave been present for 1 day and indicates a pain score of 5/10. MEDICAL/SURGICAL HISTORY: . Diabetic. HTN. Right lower quadrant kidney transplant failure. Skin cancer. . Elbow surgery. Right and left lower quadrant Renal transplant. COMPARISON: [facility] [place], RENAL TRANSPLANT W DOP, 09/04/2018. . MEASUREMENTS: Transplant Kidney:__11.1 x 5.9 x 4.5 cm Location:__Left lower quadrant Arcuate Arteries Resistive Index: Upper - 0.6 Mid - 0.7 Lower - 0.6 Main Renal Artery Velocity:__165 cm/sec Main Renal Vein:__Patent External Iliac Artery Velocity:__197 cm/sec External Iliac Vein:__Patent FINDINGS: Transplant Kidney: Normal echotexture and cortical thickness. No mass or hydronephrosis. There is a 1.7 x 3.7 x 1.8 cm hypoechoic collection medial to the kidney could be a small hematoma Urinary Bladder: N/A Other: None. CONCLUSION: 1. The velocity in the main renal artery is now 165 cm/s, previously it was 298 cm/s. Small fluid co llection medial to the transplant could be a small hematoma. Electronically signed by: Nickolas Lee MD 09/04/2018 9:45 AM EST
--- NOTE | 2018-09-04 10:25 | P.PN ---
Subjective Interval history: The patient is in bed he appears in not acute distress at this time. Pain at the surgical site is controlled by meds. Has a fairly good urine output no blood in the urine. No fever or chills. No nausea or vomiting. Family his at bedside. Physical Exam Vital signs: Vital Signs 09/03/18 14:06 09/03/18 15:39 09/03/18 19:20 Temperature 97.6 F 98.4 F Pulse Rate 72 79 Respiratory Rate 18 16 Blood Pressure 151/82 H 165/100 H Pulse Oximetry 98 98 99 09/03/18 19:40 09/03/18 20:04 09/04/18 01:30 Temperature 98.6 F 97.8 F Pulse Rate 78 76 93 H Respiratory Rate 20 12 Blood Pressure 158/89 H 168/76 H Pulse Oximetry 95 95 09/04/18 01:45 09/04/18 01:53 09/04/18 02:00 Temperature Pulse Rate 80 79 Respiratory Rate 12 14 11 L Blood Pressure 145/67 H 153/73 H Pulse Oximetry 96 96 09/04/18 02:12 09/04/18 02:15 09/04/18 02:30 Temperature Pulse Rate 85 88 Respiratory Rate 14 11 L 11 L Blood Pressure 149/74 H 144/74 H Pulse Oximetry 97 96 09/04/18 02:45 09/04/18 02:58 09/04/18 03:00 Temperature Pulse Rate 90 92 H Respiratory Rate 12 12 20 Blood Pressure 134/69 138/66 Pulse Oximetry 95 95 09/04/18 03:07 09/04/18 04:12 09/04/18 04:18 Temperature 98.4 F 98.2 F Pulse Rate 88 94 H Respiratory Rate 12 16 Blood Pressure 125/64 135/80 Pulse Oximetry 97 94 L 94 L 09/04/18 07:00 09/04/18 08:00 09/04/18 08:57 Temperature 98.7 F Pulse Rate 79 84 85 Respiratory Rate 17 17 18 Blood Pressure 175/92 H 185/101 H 168/93 H Pulse Oximetry 99 99 99 09/04/18 09:33 Temperature Pulse Rate Respiratory Rate Blood Pressure Pulse Oximetry 97 Intake & Output 09/03/18 09/04/18 09/04/18 18:59 06:59 18:59 Intake Total 0 / 0 2300 / 2300 Output Total 1520 / 1520 650 / 650 Balance 0 / 0 780 / 780 -650 / -650 Weight 100.5 kg 102 kg Intake: IV 550 / 550 Thymoglobulin Inj 114 MG In NS 500 / 500 Inj 500 ML @ 83.333 mls/hr IV. SIG ONCE ONE Rx#:[id number] Cleocin 600 mg/NS Premix 600 mg 50 / 50 In 50 ml @ 100 mls/hr IV.SIG ENGINEER FIRST ASSISTANT [facility] Rx#:[id number] Oral 0 / 0 Anesthesia Amount 1750 / 1750 Output: Hemodialysis Amount 1000 / 1000 Estimated Blood Loss 100 / 100 Urine Amount (Catheter) 420 / 420 650 / 650 Indwelling Urethral Catheter 420 / 420 650 / 650 Other: Date of Last Bowel Movement 09/02/18 09/02/18 Weight On Admission 100.5 kg Narrative: GENERAL: Very pleasant 58 yo male, well nourished well developed patient , in nad. CARDIOVASCULAR: Regular rate and rhythm. RESPIRATORY: No accessory muscle use. Clear to auscultation. Breath sounds equal bilaterally. GASTROINTESTINAL: Abdomen soft, nondistended. Left side dressing at the surgical site CDI. MUSCULOSKELETAL: AV Fistula left arm , + bruit. Extremities without clubbing, cyanosis, or edema. No obvious deformities. NEUROLOGICAL: Awake and alert. No obvious cranial nerve deficits. Motor grossly within normal limits. Five out of 5 muscle strength in the arms and legs. Normal speech. PSYCHIATRIC: Appropriate mood and affect; insight and judgment normal. - Urinary Catheter Management Indwelling Urethral Catheter Cath placed during this visit: yes Reason for continuing: Hourly intake/output Insertion date: 09/04/18 Insertion time: 21:35 Results - Labs CBC & Chem 7: 09/04/18 08:30 09/04/18 08:30 Laboratory Results - last 24 hr 09/03/18 09/03/18 09/03/18 13:32 13:32 13:32 WBC 5.4 RBC 4.39 L Hgb 13.5 Hct 40.6 MCV 92.6 MCH 30.7 MCHC 33.2 RDW 16.8 Plt Count 180 MPV 7.7 Prelim Diff (Auto) Neut % (Auto) 55.7 Lymph % (Auto) 27.1 Simpson % (Auto) 11.6 H Eos % (Auto) 4.7 H Baso % (Auto) 0.9 Neut # (Auto) 3.0 Lymph # (Auto) 1.5 Simpson # (Auto) 0.6 Eos # (Auto) 0.3 Baso # (Auto) 0.0 WBC Differential . Seg Neuts % (Manual) Band Neuts % (Manual) Monocytes % (Manual) Myelocytes % (Man) Abs Neuts (Manual) Differential Comment Auto diff final Toxic Vacuolation Platelet Estimate Platelet Morphology Ovalocytes PT 10.4 INR 1.0 APTT 27.6 Sodium 139 Potassium 5.4 H Chloride 100 Carbon Dioxide 28.5 Anion Gap 11 BUN 86 H Creatinine 11.23 H* Estimated GFR 5 L POC Glucose Random Glucose 83 Calcium 8.5 Phosphorus Magnesium Total Bilirubin 0.7 AST 15 ALT 23 Alkaline Phosphatase 121 H Total Protein 8.0 Albumin 3.4 Blood Type Antibody Screen MTS Gel Crossmatch 09/03/18 09/04/18 09/04/18 13:32 01:55 01:55 WBC 2.2 L D RBC 4.08 L Hgb 12.3 L Hct 37.4 L MCV 91.8 MCH 30.1 MCHC 32.8 RDW 16.8 Plt Count 115 L D MPV 7.2 Prelim Diff (Auto) Manual diff required Neut % (Auto) Lymph % (Auto) Simpson % (Auto) Eos % (Auto) Baso % (Auto) Neut # (Auto) Lymph # (Auto) Simpson # (Auto) Eos # (Auto) Baso # (Auto) WBC Differential Manual diff final Seg Neuts % (Manual) 86 H Band Neuts % (Manual) 12 H Monocytes % (Manual) 1 Myelocytes % (Man) 1 H Abs Neuts (Manual) 2.2 Differential Comment . Toxic Vacuolation Present H Platelet Estimate Low L Platelet Morphology Normal Ovalocytes 1+ H PT INR APTT Sodium 136 Potassium 6.2 H D Chloride 99 Carbon Dioxide 26.1 Anion Gap 11 BUN 56 H Creatinine 8.56 H Estimated GFR 6 L POC Glucose Random Glucose 124 H Calcium 7.8 L Phosphorus 4.8 Magnesium 2.1 Total Bilirubin AST ALT Alkaline Phosphatase Total Protein Albumin Blood Type O Positive Antibody Screen Negative MTS Gel Crossmatch See Detail 09/04/18 09/04/18 09/04/18 01:57 05:44 08:30 WBC 7.1 D RBC 4.04 L Hgb 12.5 L Hct 37.4 L MCV 92.5 MCH 31.0 MCHC 33.6 RDW 16.3 Plt Count 122 L MPV 7.7 Prelim Diff (Auto) Neut % (Auto) 95.5 H Lymph % (Auto) 0.4 L Simpson % (Auto) 3.5 Eos % (Auto) 0.1 Baso % (Auto) 0.5 Neut # (Auto) 6.8 Lymph # (Auto) 0.0 L Simpson # (Auto) 0.2 Eos # (Auto) 0.0 Baso # (Auto) 0.0 WBC Differential . Seg Neuts % (Manual) Band Neuts % (Manual) Monocytes % (Manual) Myelocytes % (Man) Abs Neuts (Manual) Differential Comment Auto diff final Toxic Vacuolation Platelet Estimate Platelet Morphology Ovalocytes PT INR APTT Sodium Potassium Chloride Carbon Dioxide Anion Gap BUN Creatinine Estimated GFR POC Glucose 121 H 153 H Random Glucose Calcium Phosphorus Magnesium Total Bilirubin AST ALT Alkaline Phosphatase Total Protein Albumin Blood Type Antibody Screen MTS Gel Crossmatch 09/04/18 08:30 WBC RBC Hgb Hct MCV MCH MCHC RDW Plt Count MPV Prelim Diff (Auto) Neut % (Auto) Lymph % (Auto) Simpson % (Auto) Eos % (Auto) Baso % (Auto) Neut # (Auto) Lymph # (Auto) Simpson # (Auto) Eos # (Auto) Baso # (Auto) WBC Differential Seg Neuts % (Manual) Band Neuts % (Manual) Monocytes % (Manual) Myelocytes % (Man) Abs Neuts (Manual) Differential Comment Toxic Vacuolation Platelet Estimate Platelet Morphology Ovalocytes PT INR APTT Sodium 135 L Potassium 5.9 H Chloride 97 L Carbon Dioxide 26.0 Anion Gap 12 BUN 60 H Creatinine 9.01 H Estimated GFR 6 L POC Glucose Random Glucose 173 H Calcium 7.7 L Phosphorus 4.9 Magnesium 2.1 Total Bilirubin AST ALT Alkaline Phosphatase Total Protein Albumin Blood Type Antibody Screen MTS Gel Crossmatch - Imaging Impressions Chest X-Ray 09/03/18 12:50 CONCLUSION: Chronic appearing interstitial fibrotic changes within the pulmonary parenchyma. No focal or segmental pneumonia. Chest X-Ray 09/04/18 01:28 CONCLUSION: Interval placement of central venous line with no pneumothorax. Renal Ultrasound 09/04/18 01:28 CONCLUSION: 1. The transplant kidney is unremarkable in appearance with no focal lesion or hydronephrosis. 2. There is a small amount of adjacent free fluid. 3. There is elevated velocity in the main renal artery. The renal artery and vein are patent. There are normal resistive indices. Renal Ultrasound 09/04/18 08:27 CONCLUSION: 1. The velocity in the main renal artery is now 165 cm/s, previously it was 298 cm/s. Small fluid collection medial to the transplant could be a small hematoma. Assessment and Plan - Plan ESRD (end stage renal disease) on dialysis HTN (hypertension) S/P RENAL TRANSPLANT 09/03/18 S/P kidney transplant per surgeon H/H fairly stable Pain management per pain scale Potassium elevated starting [place] per surgeon Change metoprolol to 25 mg p.o. twice daily monitor vital signs closely Monitor urine output DVT ppx per surgeon Discussed Condition With: patient, family- at bedside, Dr Staley/Dr Sarmiento transplant surgeons
[2018-09-04] MEDS ORDERED: hydrALAZINE HCl Inj 20 MG/ML Vial IV.PUSH PRN (10:29)
[2018-09-04] MEDS ORDERED: MethylPREDNISolone Sod Succinate Inj 125 MG/2 ML Vial IV.PUSH ONE (11:30)
[2018-09-04] MEDS ORDERED: Acetaminophen 325 MG Tablet PO ONE (11:30)
[2018-09-04] MEDS: Insulin NovoLOG Aspart Correctional Sugar Inj SQ SCH ×3 (11:50→23:42)
[2018-09-04] MEDS ORDERED: ANTITHYMOCYTE IG IV.SIG ONE (12:00)
[2018-09-04] MEDS ORDERED: SODIUM CHLOR 0.9% IV.SIG ONE (12:00)
--- NOTE | 2018-09-04 12:44 | P.PNTS ---
Subjective Interval history: No new c/o. Pain well controlled. Physical Exam Vital signs: Vital Signs 09/03/18 14:06 09/03/18 15:39 09/03/18 19:20 Temperature 97.6 F 98.4 F Pulse Rate 72 79 Respiratory Rate 18 16 Blood Pressure 151/82 H 165/100 H Pulse Oximetry 98 98 99 09/03/18 19:40 09/03/18 20:04 09/04/18 01:30 Temperature 98.6 F 97.8 F Pulse Rate 78 76 93 H Respiratory Rate 20 12 Blood Pressure 158/89 H 168/76 H Pulse Oximetry 95 95 09/04/18 01:45 09/04/18 01:53 09/04/18 02:00 Temperature Pulse Rate 80 79 Respiratory Rate 12 14 11 L Blood Pressure 145/67 H 153/73 H Pulse Oximetry 96 96 09/04/18 02:12 09/04/18 02:15 09/04/18 02:30 Temperature Pulse Rate 85 88 Respiratory Rate 14 11 L 11 L Blood Pressure 149/74 H 144/74 H Pulse Oximetry 97 96 09/04/18 02:45 09/04/18 02:58 09/04/18 03:00 Temperature Pulse Rate 90 92 H Respiratory Rate 12 12 20 Blood Pressure 134/69 138/66 Pulse Oximetry 95 95 09/04/18 03:07 09/04/18 04:12 09/04/18 04:18 Temperature 98.4 F 98.2 F Pulse Rate 88 94 H Respiratory Rate 12 16 Blood Pressure 125/64 135/80 Pulse Oximetry 97 94 L 94 L 09/04/18 07:00 09/04/18 08:00 09/04/18 08:57 Temperature 98.7 F Pulse Rate 79 84 85 Respiratory Rate 17 17 18 Blood Pressure 175/92 H 185/101 H 168/93 H Pulse Oximetry 99 99 99 09/04/18 09:33 09/04/18 10:36 09/04/18 10:44 Temperature 98.3 F Pulse Rate 75 Respiratory Rate 17 Blood Pressure 150/83 H Pulse Oximetry 97 97 97 09/04/18 10:47 09/04/18 11:24 09/04/18 12:00 Temperature 99.0 F 99.0 F Pulse Rate 75 78 93 H Respiratory Rate 20 18 Blood Pressure 138/77 137/82 Pulse Oximetry 97 95 09/04/18 12:15 Temperature 99.1 F Pulse Rate 79 Respiratory Rate 18 Blood Pressure 162/88 H Pulse Oximetry 95 Intake & Output 09/03/18 09/04/18 09/04/18 18:59 06:59 18:59 Intake Total 0 / 0 2300 / 2300 1450 / 1450 Output Total 1520 / 1520 900 / 900 Balance 0 / 0 780 / 780 550 / 550 Weight 100.5 kg 102 kg Intake: IV 550 / 550 1000 / 1000 1/2 Normal Saline Inj 1,000 ML 1000 / 1000 @ Titrate IV.CONT .Q0M PRN Rx#: [id number] Thymoglobulin Inj 114 MG In NS 500 / 500 Inj 500 ML @ 83.333 mls/hr IV. SIG ONCE ONE Rx#:[id number] Cleocin 600 mg/NS Premix 600 mg 50 / 50 In 50 ml @ 100 mls/hr IV.SIG [facility]ITOR [facility] Rx#:[id number] Oral 0 / 0 450 / 450 Anesthesia Amount 1750 / 1750 Output: Hemodialysis Amount 1000 / 1000 Estimated Blood Loss 100 / 100 Urine Amount (Catheter) 420 / 420 900 / 900 Indwelling Urethral Catheter 420 / 420 900 / 900 Other: Date of Last Bowel Movement 09/02/18 09/02/18 Weight On Admission 100.5 kg - Constitutional no acute distress - Routine HEENT Exam Head: Present: normocephalic, atraumatic Eye: Present: EOMI ENT: Present: mucous membranes moist - Routine Neck Exam Present: supple, full ROM - Routine Respiratory Exam Present: CTA bilaterally - Routine Cardiovascular Exam Present: RRR, S1, S2 - Routine Abdominal Exam Present: soft Comments: hypoactive BS. Dressing dry/intact - Routine Extremities Exam Present: pulses intact - Routine Skin Exam Present: intact - Routine Neurological Exam Present: alert, oriented X3 - Detailed Neurological Exam: Coma Scale Verbal Response: Oriented - Routine Psychiatric Exam Present: normal affect, normal thought process - Urinary Catheter Management Indwelling Urethral Catheter Cath placed during this visit: yes Reason for continuing: Hourly intake/output Insertion date: 09/04/18 Insertion time: 21:35 Results - Labs CBC & Chem 7: 09/04/18 08:30 09/04/18 08:30 Laboratory Results - last 24 hr 11/13/18 11/13/18 11/13/18 13:32 13:32 13:32 WBC 5.4 RBC 4.39 L Hgb 13.5 Hct 40.6 MCV 92.6 MCH 30.7 MCHC 33.2 RDW 16.8 Plt Count 180 MPV 7.7 Prelim Diff (Auto) Neut % (Auto) 55.7 Lymph % (Auto) 27.1 [place] % (Auto) 11.6 H Eos % (Auto) 4.7 H Baso % (Auto) 0.9 Neut # (Auto) 3.0 Lymph # (Auto) 1.5 [place] # (Auto) 0.6 Eos # (Auto) 0.3 Baso # (Auto) 0.0 WBC Differential . Seg Neuts % (Manual) Band Neuts % (Manual) Monocytes % (Manual) Myelocytes % (Man) Abs Neuts (Manual) Differential Comment Auto diff final Toxic Vacuolation Platelet Estimate Platelet Morphology Ovalocytes PT 10.4 INR 1.0 APTT 27.6 Sodium 139 Potassium 5.4 H Chloride 100 Carbon Dioxide 28.5 Anion Gap 11 BUN 86 H Creatinine 11.23 H* Estimated GFR 5 L POC Glucose Random Glucose 83 Calcium 8.5 Phosphorus Magnesium Total Bilirubin 0.7 AST 15 ALT 23 Alkaline Phosphatase 121 H Total Protein 8.0 Albumin 3.4 Blood Type Antibody Screen MTS Gel Crossmatch 09/03/18 09/04/18 09/04/18 13:32 01:55 01:55 WBC 2.2 L D RBC 4.08 L Hgb 12.3 L Hct 37.4 L MCV 91.8 MCH 30.1 MCHC 32.8 RDW 16.8 Plt Count 115 L D MPV 7.2 Prelim Diff (Auto) Manual diff required Neut % (Auto) Lymph % (Auto) [place] % (Auto) Eos % (Auto) Baso % (Auto) Neut # (Auto) Lymph # (Auto) [place] # (Auto) Eos # (Auto) Baso # (Auto) WBC Differential Manual diff final Seg Neuts % (Manual) 86 H Band Neuts % (Manual) 12 H Monocytes % (Manual) 1 Myelocytes % (Man) 1 H Abs Neuts (Manual) 2.2 Differential Comment . Toxic Vacuolation Present H Platelet Estimate Low L Platelet Morphology Normal Ovalocytes 1+ H PT INR APTT Sodium 136 Potassium 6.2 H D Chloride 99 Carbon Dioxide 26.1 Anion Gap 11 BUN 56 H Creatinine 8.56 H Estimated GFR 6 L POC Glucose Random Glucose 124 H Calcium 7.8 L Phosphorus 4.8 Magnesium 2.1 Total Bilirubin AST ALT Alkaline Phosphatase Total Protein Albumin Blood Type O Positive Antibody Screen Negative MTS Gel Crossmatch See Detail 09/04/18 09/04/18 09/04/18 01:57 05:44 08:30 WBC 7.1 D RBC 4.04 L Hgb 12.5 L Hct 37.4 L MCV 92.5 MCH 31.0 MCHC 33.6 RDW 16.3 Plt Count 122 L MPV 7.7 Prelim Diff (Auto) Neut % (Auto) 95.5 H Lymph % (Auto) 0.4 L [place] % (Auto) 3.5 Eos % (Auto) 0.1 Baso % (Auto) 0.5 Neut # (Auto) 6.8 Lymph # (Auto) 0.0 L [place] # (Auto) 0.2 Eos # (Auto) 0.0 Baso # (Auto) 0.0 WBC Differential . Seg Neuts % (Manual) Band Neuts % (Manual) Monocytes % (Manual) Myelocytes % (Man) Abs Neuts (Manual) Differential Comment Auto diff final Toxic Vacuolation Platelet Estimate Platelet Morphology Ovalocytes PT INR APTT Sodium Potassium Chloride Carbon Dioxide Anion Gap BUN Creatinine Estimated GFR POC Glucose 121 H 153 H Random Glucose Calcium Phosphorus Magnesium Total Bilirubin AST ALT Alkaline Phosphatase Total Protein Albumin Blood Type Antibody Screen MTS Gel Crossmatch 09/04/18 09/04/18 08:30 11:35 WBC RBC Hgb Hct MCV MCH MCHC RDW Plt Count MPV Prelim Diff (Auto) Neut % (Auto) Lymph % (Auto) [place] % (Auto) Eos % (Auto) Baso % (Auto) Neut # (Auto) Lymph # (Auto) [place] # (Auto) Eos # (Auto) Baso # (Auto) WBC Differential Seg Neuts % (Manual) Band Neuts % (Manual) Monocytes % (Manual) Myelocytes % (Man) Abs Neuts (Manual) Differential Comment Toxic Vacuolation Platelet Estimate Platelet Morphology Ovalocytes PT INR APTT Sodium 135 L Potassium 5.9 H Chloride 97 L Carbon Dioxide 26.0 Anion Gap 12 BUN 60 H Creatinine 9.01 H Estimated GFR 6 L POC Glucose 175 H Random Glucose 173 H Calcium 7.7 L Phosphorus 4.9 Magnesium 2.1 Total Bilirubin AST ALT Alkaline Phosphatase Total Protein Albumin Blood Type Antibody Screen MTS Gel Crossmatch - Imaging Impressions Chest X-Ray 09/03/18 12:50 CONCLUSION: Chronic appearing interstitial fibrotic changes within the pulmonary parenchyma. No focal or segmental pneumonia. Chest X-Ray 09/04/18 01:28 CONCLUSION: Interval placement of central venous line with no pneumothorax. Renal Ultrasound 09/04/18 01:28 CONCLUSION: 1. The transplant kidney is unremarkable in appearance with no focal lesion or hydronephrosis. 2. There is a small amount of adjacent free fluid. 3. There is elevated velocity in the main renal artery. The renal artery and vein are patent. There are normal resistive indices. Renal Ultrasound 09/04/18 08:27 CONCLUSION: 1. The velocity in the main renal artery is now 165 cm/s, previously it was 298 cm/s. Small fluid collection medial to the transplant could be a small hematoma. Assessment and Plan - Assessment (1) ESRD (end stage renal disease) on dialysis Code(s): N18.6 - End stage renal disease; Z99.2 - Dependence on renal dialysis Status: Acute (2) HTN (hypertension) Code(s): I10 - Essential (primary) hypertension Status: Acute - Plan Mr Greg Gonzalez has ESRD secondary to htn, and is was admitted for donor kidney transplantation. S/P DDKT to left iliac fossa. Allograft function: improving. Immunosuppression: Thymo induction; Maint: steroids + Cellcept 1000 BID + Tacrolimus 2 BID (will start tonight) Patient with 400 ml UOP overnight. No clinical c/o at this time. Lucretia po. Will start clear liquid diet. UOP has increased since this AM (900 ml so far this shift). Some hyperkalemia noted. Veltassa started. Will recheck labs at 1400 today. Repeat US with patent vessels, reasonable RIs. Some hypertension. resumed /modified BP meds.
--- NOTE | 2018-09-04 12:45 | ECG ---
Date Performed: 09/03/2018 Time Performed: 13:22:34 PTAGE: 58 years EKG: Sinus rhythm . Normal ECG NO PREVIOUS TRACING DOCTOR: Nickolas De La O Interpretating Date/Time 09/04/2018 12:42:09
--- NOTE | 2018-09-04 14:26 | P.DIET ---
Nutritional Evaluation Type of nutrition evaluation: initial Screening comments: Nutrition Assessment s/p kidney transplant early this AM. Subjective Subjective Comments: Pt currently verbalizes no complaints, has minimal discomfort. Objective - Diagnosis ESRD - Objective Body Mass Index: 30.0 [place] body weight: 81 kg % IBW: 127 Body Weight Used for Calculations: IBW Energy Needs - Lower Range (kCal/kg): 28 Energy Needs - Upper Range (kCal/kg): 33 Lower Limit kCal/kg (kCals): 2,268 Upper Limit kCal/kg (kCals): 2,673 Lower Limit Protein Factor (Grams per Kg): 1.2 Upper Limit Protein Factor (Grams per Kg): 1.5 Lower Protein Needs (Protein): 97 Upper Protein Needs (Protein): 122 Estimated Fluid Needs (ml): 2,000 Dietitian Reviewed in Medical Record: Current diet, Curent medications, Intake & Output, Labs, Medical history Diet Order: CL Assessment Assessment: Pt seen today s/p kidney transplant approximately 1AM this morning. He was hyperkalemic, now potassium is coming down. Pt's UOP is increasing. Pt's nutritional needs as assessed above. He is currently on a CL diet. Will follow pt with the transplant team, monitor PO intake and educate before discharge. Dietitian to Monitor: Electrolytes, Renal labs, Glucose level, Intake & Output, Diet tolerance, Diet advancement, Medical course
[2018-09-04 15:24] LABS: Hematocrit 38.3 % (39.0-51.0); Hemoglobin 12.7 gm/dL (13.0-17.0); Mean Corpuscular HGB Conc 33.2 % (32.0-36.0); Mean Corpuscular Hemoglobin 31.4 pg (27.0-34.0); Mean Corpuscular Volume 94.8 fL (80.0-100.0); Mean Platelet Volume 7.9 fL (7.0-11.0); Platelet Count 134 th/mm3 (150-450); Red Blood Count 4.04 mil/mm3 (4.50-5.90); Red Cell Distribution Width 16.6 % (11.6-17.2)
[2018-09-04 15:25] LABS: Calcium 7.6 mg/dL (8.5-10.1); Carbon Dioxide 25.9 meq/L (21.0-32.0); Potassium 6.1 meq/L (3.5-5.1)
[2018-09-04 15:59] LABS: Magnesium 2.1 mg/dL (1.5-2.5); Phosphorus 5.8 mg/dL (2.5-4.9)
[2018-09-05] MEDS: Sodium Chloride 0.45 % Inj 1,000 ML IV.CONT PRN
[2018-09-05] MEDS: Dextrose 5%/NaCl 0.45% Inj 1,000 ML IV.CONT SCH (03:24)
[2018-09-05 05:02] LABS: Baso % (Auto) 0.3 % (0.0-2.0); Eos % (Auto) 0.3 % (0.0-4.0); Hematocrit 36.1 % (39.0-51.0); Hemoglobin 11.7 gm/dL (13.0-17.0); Lymph % (Auto) 0.7 % (9.0-44.0); Mean Corpuscular HGB Conc 32.4 % (32.0-36.0); Mean Corpuscular Hemoglobin 30.3 pg (27.0-34.0); Mean Corpuscular Volume 93.4 fL (80.0-100.0); Mean Platelet Volume 7.3 fL (7.0-11.0); Mono # (Auto) 0.1 th/mm3 (0.0-0.9); Mono % (Auto) 1.6 % (0.0-8.0); Neut # (Auto) 5.8 th/mm3 (1.8-7.7); Neut % (Auto) 97.1 % (16.0-70.0); Platelet Count 83 th/mm3 (150-450); Red Blood Count 3.87 mil/mm3 (4.50-5.90); Red Cell Distribution Width 16.6 % (11.6-17.2); White Blood Count 5.9 th/mm3 (4.0-11.0)
[2018-09-05 05:38] LABS: Calcium 8.1 mg/dL (8.5-10.1); Carbon Dioxide 27.9 meq/L (21.0-32.0); Magnesium 2.1 mg/dL (1.5-2.5); Phosphorus 7.5 mg/dL (2.5-4.9); Potassium 5.3 meq/L (3.5-5.1)
[2018-09-05] MEDS: Insulin NovoLOG Aspart Correctional Sugar Inj SQ SCH ×4 (08:14→22:03)
[2018-09-05] MEDS: Pantoprazole Inj 40 MG Vial IV.PUSH SCH (08:41)
[2018-09-05] MEDS: Docusate Sodium 100 MG Capsule PO SCH ×2 (08:42→22:03)
--- NOTE | 2018-09-05 09:02 | P.PNNP ---
Subjective Interval history: doing well , passing gas, UOP improved 3050 ml Physical Exam Vital signs: Vital Signs 09/04/18 08:57 09/04/18 09:33 09/04/18 10:36 Temperature Pulse Rate 85 Respiratory Rate 18 Blood Pressure 168/93 H Pulse Oximetry 99 97 97 09/04/18 10:44 09/04/18 10:47 09/04/18 11:24 Temperature 98.3 F 99.0 F Pulse Rate 75 75 78 Respiratory Rate 17 20 Blood Pressure 150/83 H 138/77 Pulse Oximetry 97 97 09/04/18 12:00 09/04/18 12:15 09/04/18 12:30 Temperature 99.0 F 99.1 F Pulse Rate 93 H 79 74 Respiratory Rate 18 18 20 Blood Pressure 137/82 162/88 H 153/84 H Pulse Oximetry 95 95 94 L 09/04/18 13:00 09/04/18 14:00 09/04/18 15:00 Temperature 99.0 F 99.0 F Pulse Rate 85 76 74 Respiratory Rate 17 18 18 Blood Pressure 145/78 H 129/76 140/82 Pulse Oximetry 96 97 95 09/04/18 19:00 09/04/18 20:00 09/04/18 21:00 Temperature 98.4 F Pulse Rate 75 80 76 Respiratory Rate 16 Blood Pressure 139/69 Pulse Oximetry 96 09/04/18 22:00 09/04/18 23:00 09/05/18 00:00 Temperature 98.6 F Pulse Rate 75 72 73 Respiratory Rate 16 Blood Pressure 116/70 Pulse Oximetry 93 L 09/05/18 01:00 09/05/18 02:00 09/05/18 03:00 Temperature 98.0 F Pulse Rate 72 75 73 Respiratory Rate 15 Blood Pressure 150/71 H Pulse Oximetry 93 L 09/05/18 04:00 09/05/18 05:00 09/05/18 06:00 Temperature Pulse Rate 76 71 76 Respiratory Rate Blood Pressure Pulse Oximetry 09/05/18 07:00 Temperature Pulse Rate 77 Respiratory Rate Blood Pressure Pulse Oximetry Intake & Output 09/04/18 09/05/18 09/05/18 18:59 06:59 18:59 Intake Total 2040 / 2040 2740 / 2740 Output Total 1615 / 1615 1435 / 1435 Balance 425 / 425 1305 / 1305 Weight 106 kg Intake: IV 1000 / 1000 2500 / 2500 D5W/1/2 NS Inj 1,000 ML @ 40 1000 / 1000 mls/hr IV.CONT .Q24H [facility] Rx#: [id number] 1/2 Normal Saline Inj 1,000 ML 1000 / 1000 1000 / 1000 @ Titrate IV.CONT .Q0M PRN Rx#: [id number] Thymoglobulin Inj 117 MG In NS 500 / 500 Inj 500 ML @ 125 mls/hr IV.SIG ONCE ONE Rx#:[id number] Oral 1040 / 1040 240 / 240 Output: Urine Amount (Catheter) 1615 / 1615 1435 / 1435 Indwelling Urethral Catheter 1615 / 1615 1435 / 1435 Other: Date of Last Bowel Movement 09/02/18 Narrative: GENERAL: Very pleasant 58 yo male, well nourished well developed patient , in nad. CARDIOVASCULAR: Regular rate and rhythm. RESPIRATORY: No accessory muscle use. Clear to auscultation. Breath sounds equal bilaterally. GASTROINTESTINAL: Abdomen soft, nondistended. Left side dressing at the surgical site CDI. MUSCULOSKELETAL: AV Fistula left arm , + bruit. Extremities without clubbing, cyanosis, or edema. No obvious deformities. NEUROLOGICAL: Awake and alert. No obvious cranial nerve deficits. Motor grossly within normal limits. Five out of 5 muscle strength in the arms and legs. Normal speech. PSYCHIATRIC: Appropriate mood and affect; insight and judgment normal. - Urinary Catheter Management Indwelling Urethral Catheter Cath placed during this visit: yes Reason for continuing: Hourly intake/output Insertion date: 09/04/18 Insertion time: 21:35 Assessment and Plan - Assessment (1) ESRD (end stage renal disease) on dialysis Code(s): N18.6 - End stage renal disease; Z99.2 - Dependence on renal dialysis Status: Acute (2) HTN (hypertension) Code(s): I10 - Essential (primary) hypertension Status: Acute - Plan Patient has kidney transplant doing well creatinine declined UOP increased K 5.3 overall improved drink water continue with K restriction, 2g Na decrease IVF BP stable Veltassa 8.4 gm to continue getting steroids today Thymoglobulin tomorrow on Tacrolimus/MMF follow Tacrolimus levels
--- NOTE | 2018-09-05 10:10 | DRUGHERB ---
Reviewed patient medication list and recommended the following: -Continue CellCept and Tacrolimus. -Based on Transplant protocol will hold Thymoglobulin today but will administer Solumedrol at a dose of 90mg x 1 at 11:30 today. -Noted patient Potassium level of 5.3 but his UOP improving and SCR trending down, continue Veltassa and continue monitoring of K level. Might consider K level drawn by 1400 with an option of an extra Veltassa dose if level continue to elevate. -Noted HGB level trending down since admission which might be dilutional, recommended iron profile check in AM to assess iron level before anticipated discharge on Sunday. -Recommended switch of Morphine TROUBLE LOCATER or oral Percocet which will be assessed in AM after patient start ambulating. -Planning to start Valcyte, Bactrim and Nystatin in AM. Rachid Pillai, PharmD 09/05/18
--- NOTE | 2018-09-05 10:11 | P.PN ---
Subjective Interval history: Great UOP, urine is clear. Pain is controlled by meds. No n/v/d/c. No cp or sob No fever or chills. Physical Exam Vital signs: Vital Signs 09/04/18 10:36 09/04/18 10:44 09/04/18 10:47 Temperature 98.3 F Pulse Rate 75 75 Respiratory Rate 17 Blood Pressure 150/83 H Pulse Oximetry 97 97 09/04/18 11:24 09/04/18 12:00 09/04/18 12:15 Temperature 99.0 F 99.0 F 99.1 F Pulse Rate 78 93 H 79 Respiratory Rate 20 18 18 Blood Pressure 138/77 137/82 162/88 H Pulse Oximetry 97 95 95 09/04/18 12:30 09/04/18 13:00 09/04/18 14:00 Temperature 99.0 F Pulse Rate 74 85 76 Respiratory Rate 20 17 18 Blood Pressure 153/84 H 145/78 H 129/76 Pulse Oximetry 94 L 96 97 09/04/18 15:00 09/04/18 19:00 09/04/18 20:00 Temperature 99.0 F 98.4 F Pulse Rate 74 75 80 Respiratory Rate 18 16 Blood Pressure 140/82 139/69 Pulse Oximetry 95 96 09/04/18 21:00 09/04/18 22:00 09/04/18 23:00 Temperature 98.6 F Pulse Rate 76 75 72 Respiratory Rate 16 Blood Pressure 116/70 Pulse Oximetry 93 L 09/05/18 00:00 09/05/18 01:00 09/05/18 02:00 Temperature Pulse Rate 73 72 75 Respiratory Rate Blood Pressure Pulse Oximetry 09/05/18 03:00 09/05/18 04:00 09/05/18 05:00 Temperature 98.0 F Pulse Rate 73 76 71 Respiratory Rate 15 Blood Pressure 150/71 H Pulse Oximetry 93 L 09/05/18 06:00 09/05/18 07:00 09/05/18 08:00 Temperature 98.2 F Pulse Rate 76 82 93 H Respiratory Rate 16 Blood Pressure 170/91 H Pulse Oximetry 94 L 09/05/18 09:00 09/05/18 10:00 Temperature Pulse Rate 94 H 84 Respiratory Rate Blood Pressure Pulse Oximetry Intake & Output 11/14/18 11/15/18 11/15/18 18:59 06:59 18:59 Intake Total 2039 / 2040 2740 / 2740 Output Total 1615 / 1615 1435 / 1435 695 / 695 Balance 425 / 425 1305 / 1305 -695 / -695 Weight 106 kg Intake: IV 1000 / 1000 2500 / 2500 D5W/1/2 NS Inj 1,000 ML @ 40 1000 / 1000 mls/hr IV.CONT .Q24H [facility] Rx#: [id number] 1/2 Normal Saline Inj 1,000 ML 1000 / 1000 1000 / 1000 @ Titrate IV.CONT .Q0M PRN Rx#: [id number] Thymoglobulin Inj 117 MG In NS 500 / 500 Inj 500 ML @ 125 mls/hr IV.SIG ONCE ONE Rx#:[id number] Oral 1040 / 1040 240 / 240 Output: Urine Amount (Catheter) 1615 / 1615 1435 / 1435 695 / 695 Indwelling Urethral Catheter 1615 / 1615 1435 / 1435 695 / 695 Other: Date of Last Bowel Movement 09/02/18 Narrative: GENERAL: Very pleasant 58 yo male, well nourished well developed patient , in nad. CARDIOVASCULAR: Regular rate and rhythm. RESPIRATORY: No accessory muscle use. Clear to auscultation. Breath sounds equal bilaterally. GASTROINTESTINAL: Abdomen soft, nondistended. Left side dressing at the surgical site CDI. MUSCULOSKELETAL: AV Fistula left arm , + bruit. Extremities without clubbing, cyanosis, or edema. No obvious deformities. NEUROLOGICAL: Awake and alert. No obvious cranial nerve deficits. Motor grossly within normal limits. Five out of 5 muscle strength in the arms and legs. Normal speech. PSYCHIATRIC: Appropriate mood and affect; insight and judgment normal. - Urinary Catheter Management Indwelling Urethral Catheter Cath placed during this visit: yes Reason for continuing: Hourly intake/output Insertion date: 09/04/18 Insertion time: 21:35 Results - Labs CBC & Chem 7: 09/05/18 04:47 09/05/18 04:47 Laboratory Results - last 24 hr 09/04/18 09/04/18 09/04/18 11:35 14:18 14:18 WBC 9.0 RBC 4.04 L Hgb 12.7 L Hct 38.3 L MCV 94.8 MCH 31.4 MCHC 33.2 RDW 16.6 Plt Count 134 L MPV 7.9 Prelim Diff (Auto) Neut % (Auto) Lymph % (Auto) [place] % (Auto) Eos % (Auto) Baso % (Auto) Neut # (Auto) Lymph # (Auto) [place] # (Auto) Eos # (Auto) Baso # (Auto) WBC Differential Diff Scan Differential Comment Sodium 132 L Potassium 6.1 H Chloride 96 L Carbon Dioxide 25.9 Anion Gap 10 BUN 61 H Creatinine 9.04 H Estimated GFR 6 L POC Glucose 175 H Random Glucose 152 H Calcium 7.6 L Phosphorus 5.8 H Magnesium 2.1 09/04/18 09/04/18 09/05/18 16:27 21:36 04:47 WBC RBC Hgb Hct MCV MCH MCHC RDW Plt Count MPV Prelim Diff (Auto) Neut % (Auto) Lymph % (Auto) [place] % (Auto) Eos % (Auto) Baso % (Auto) Neut # (Auto) Lymph # (Auto) [place] # (Auto) Eos # (Auto) Baso # (Auto) WBC Differential Diff Scan Differential Comment Sodium 132 L Potassium 5.3 H D Chloride 95 L Carbon Dioxide 27.9 Anion Gap 9 BUN 68 H Creatinine 8.49 H Estimated GFR 7 L POC Glucose 131 H 133 H Random Glucose 124 H Calcium 8.1 L Phosphorus 7.5 H D Magnesium 2.1 09/05/18 09/05/18 04:47 08:06 WBC 5.9 RBC 3.87 L Hgb 11.7 L Hct 36.1 L MCV 93.4 MCH 30.3 MCHC 32.4 RDW 16.6 Plt Count 83 L D MPV 7.3 Prelim Diff (Auto) Slide review pending Neut % (Auto) 97.1 H Lymph % (Auto) 0.7 L [place] % (Auto) 1.6 Eos % (Auto) 0.3 Baso % (Auto) 0.3 Neut # (Auto) 5.8 Lymph # (Auto) 0.0 L [place] # (Auto) 0.1 Eos # (Auto) 0.0 Baso # (Auto) 0.0 WBC Differential . Diff Scan Auto diff confirmed Differential Comment . Sodium Potassium Chloride Carbon Dioxide Anion Gap BUN Creatinine Estimated GFR POC Glucose 127 H Random Glucose Calcium Phosphorus Magnesium Assessment and Plan - Plan ESRD (end stage renal disease) on dialysis HTN (hypertension) S/P RENAL TRANSPLANT 09/03/18 S/P kidney transplant per surgeon H/H fairly stable Pain management per pain scale Potassium elevated starting Veltassa per surgeon Change metoprolol to 25 mg p.o. twice daily monitor vital signs closely Monitor urine output on steroids Check Thymoglobulin On Tacrolimus/MMF, check Tacrolimus levels DVT ppx per surgeon Discussed Condition With: patient, family- at bedside
[2018-09-05] MEDS ORDERED: MethylPREDNISolone Sod Succinate Inj 125 MG/2 ML Vial IV.PUSH ONE (11:30)
--- NOTE | 2018-09-05 12:55 | P.DIET ---
Nutritional Evaluation Type of nutrition evaluation: follow-up Screening comments: Nutrition Assessment s/p kidney transplant 09/03 followup and Education Subjective Subjective Comments: Pt states he is eating fairly well, c/o some bloating and discomfort. states patient eats mostly home cooked meals, low sodium at home. She states, "We have been through this before with his previous transplant". Objective - Diagnosis ESRD - Objective [place] body weight: 81 kg % IBW: 127 Body Weight Used for Calculations: IBW Energy Needs - Lower Range (kCal/kg): 28 Energy Needs - Upper Range (kCal/kg): 33 Lower Limit kCal/kg (kCals): 2,268 Upper Limit kCal/kg (kCals): 2,673 Lower Limit Protein Factor (Grams per Kg): 1.2 Upper Limit Protein Factor (Grams per Kg): 1.5 Lower Protein Needs (Protein): 97 Upper Protein Needs (Protein): 122 Estimated Fluid Needs (ml): 2,000 Dietitian Reviewed in Medical Record: Current diet, Curent medications, Intake & Output, Labs Diet Order: 2 gm Na, 60meq K Oral Diet Intake Amount: Fair 50-75% Objective Comments: Labs of note: K+ 5.3, Cr 8.49, Phosphorus 7.5 24-hr UOP 3050mls Assessment Assessment: Pt seen today with the transplant team s/p kidney transplant 09/04. Pt's UOP has greatly increased, Cr slowly coming down, K+ remains slightly elevated. Pt' s diet has been advanced and he is eating 50-75% of his meals at this time. Provided nutrition education after kidney transplant with Greg Gonzalez and his . I stressed the importance of drinking adequate water, 2.5-3L/day. Educated on high phosphorus foods to include in his diet daily once his phosphorus level drops. Discussed temporary K+ restriction as his potassium remains slightly elevated. I explained that medications may elevate cholesterol and triglycerides. I discussed the monitoring of glucose while on steroids and the possibility of prograf-induced diabetes. I also discussed the possibility of weight gain related to increased appetite and medications. Educated patient on food safety and the importance of reducing his risk of food borne illness. Stressed the importance of maintaining an active lifestyle once patient is cleared to do so. I answered all questions from both patient and . Both appear very receptive to following the nutrition guidelines and I expect excellent compliance. This is patients second kidney transplant so both he and his are very familiar with nutrition post-transplant. Will continue to follow patient while hospitalized and answer any nutrition related questions that may arise. After discharge, will monitor patient in post- transplant clinic. Dietitian to Monitor: Electrolytes, Renal labs, Glucose level, Intake & Output, Diet tolerance, Medical course
--- NOTE | 2018-09-05 13:59 | P.PNTS ---
Subjective Interval history: No new complaints. Pain well controlled. + flatus. Physical Exam Vital signs: Vital Signs 09/04/18 14:00 09/04/18 15:00 09/04/18 19:00 Temperature 99.0 F 98.4 F Pulse Rate 76 74 75 Respiratory Rate 18 18 16 Blood Pressure 129/76 140/82 139/69 Pulse Oximetry 97 95 96 09/04/18 20:00 09/04/18 21:00 09/04/18 22:00 Temperature Pulse Rate 80 76 75 Respiratory Rate Blood Pressure Pulse Oximetry 09/04/18 23:00 09/05/18 00:00 09/05/18 01:00 Temperature 98.6 F Pulse Rate 72 73 72 Respiratory Rate 16 Blood Pressure 116/70 Pulse Oximetry 93 L 09/05/18 02:00 09/05/18 03:00 09/05/18 04:00 Temperature 98.0 F Pulse Rate 75 73 76 Respiratory Rate 15 Blood Pressure 150/71 H Pulse Oximetry 93 L 09/05/18 05:00 09/05/18 06:00 09/05/18 07:00 Temperature 98.2 F Pulse Rate 71 76 82 Respiratory Rate 16 Blood Pressure 170/91 H Pulse Oximetry 94 L 09/05/18 08:00 09/05/18 09:00 09/05/18 10:00 Temperature Pulse Rate 93 H 94 H 84 Respiratory Rate Blood Pressure Pulse Oximetry 09/05/18 11:00 09/05/18 12:00 09/05/18 13:00 Temperature 98.2 F Pulse Rate 85 91 H 89 Respiratory Rate 16 Blood Pressure 145/74 H Pulse Oximetry 94 L Intake & Output 09/04/18 09/05/18 09/05/18 18:59 06:59 18:59 Intake Total 2040 / 2040 2740 / 2740 Output Total 1615 / 1615 1435 / 1435 1195 / 1195 Balance 425 / 425 1305 / 1305 -1195 / -1195 Weight 106 kg Intake: IV 1000 / 1000 2500 / 2500 D5W/1/2 NS Inj 1,000 ML @ 40 1000 / 1000 mls/hr IV.CONT .Q24H [facility] Rx#: [id number] 1/2 Normal Saline Inj 1,000 ML 1000 / 1000 1000 / 1000 @ Titrate IV.CONT .Q0M [facility] Rx#: [id number] Thymoglobulin Inj 117 MG In NS 500 / 500 Inj 500 ML @ 125 mls/hr IV.SIG ONCE ONE Rx#:[id number] Oral 1040 / 1040 240 / 240 Output: Urine Amount (Catheter) 1615 / 1615 1435 / 1435 1195 / 1195 Indwelling Urethral Catheter 1615 / 1615 1435 / 1435 1195 / 1195 Other: Date of Last Bowel Movement 09/02/18 - Constitutional no acute distress - Routine HEENT Exam Head: Present: normocephalic, atraumatic Eye: Present: EOMI ENT: Present: mucous membranes moist - Routine Neck Exam Present: supple, full ROM - Routine Respiratory Exam Present: CTA bilaterally - Routine Cardiovascular Exam Present: RRR, S1, S2 - Routine Abdominal Exam Present: soft, normoactive bowel sounds Comments: mild-mod distension noted. - Routine Extremities Exam Present: pulses intact Comments: Calves soft NT B. No palpable cords. - Routine Skin Exam Present: intact - Routine Neurological Exam Present: alert, oriented X3 - Detailed Neurological Exam: Coma Scale Verbal Response: Oriented - Routine Psychiatric Exam Present: normal affect, normal thought process - Urinary Catheter Management Indwelling Urethral Catheter Cath placed during this visit: yes Reason for continuing: Hourly intake/output Insertion date: 09/04/18 Insertion time: 21:35 Results - Labs CBC & Chem 7: 09/05/18 04:47 09/05/18 04:47 Laboratory Results - last 24 hr 09/04/18 09/04/18 09/04/18 14:18 14:18 16:27 WBC 9.0 RBC 4.04 L Hgb 12.7 L Hct 38.3 L MCV 94.8 MCH 31.4 MCHC 33.2 RDW 16.6 Plt Count 134 L MPV 7.9 Prelim Diff (Auto) Neut % (Auto) Lymph % (Auto) [place] % (Auto) Eos % (Auto) Baso % (Auto) Neut # (Auto) Lymph # (Auto) [place] # (Auto) Eos # (Auto) Baso # (Auto) WBC Differential Diff Scan Differential Comment Sodium 132 L Potassium 6.1 H Chloride 96 L Carbon Dioxide 25.9 Anion Gap 10 BUN 61 H Creatinine 9.04 H Estimated GFR 6 L POC Glucose 131 H Random Glucose 152 H Calcium 7.6 L Phosphorus 5.8 H Magnesium 2.1 Tacrolimus 09/04/18 09/05/18 09/05/18 21:36 04:47 04:47 WBC RBC Hgb Hct MCV MCH MCHC RDW Plt Count MPV Prelim Diff (Auto) Neut % (Auto) Lymph % (Auto) [place] % (Auto) Eos % (Auto) Baso % (Auto) Neut # (Auto) Lymph # (Auto) [place] # (Auto) Eos # (Auto) Baso # (Auto) WBC Differential Diff Scan Differential Comment Sodium 132 L Potassium 5.3 H D Chloride 95 L Carbon Dioxide 27.9 Anion Gap 9 BUN 68 H Creatinine 8.49 H Estimated GFR 7 L POC Glucose 133 H Random Glucose 124 H Calcium 8.1 L Phosphorus 7.5 H D Magnesium 2.1 Tacrolimus Less than 2.0 L 09/05/18 09/05/18 09/05/18 04:47 08:06 10:54 WBC 5.9 RBC 3.87 L Hgb 11.7 L Hct 36.1 L MCV 93.4 MCH 30.3 MCHC 32.4 RDW 16.6 Plt Count 83 L D MPV 7.3 Prelim Diff (Auto) Slide review pending Neut % (Auto) 97.1 H Lymph % (Auto) 0.7 L [place] % (Auto) 1.6 Eos % (Auto) 0.3 Baso % (Auto) 0.3 Neut # (Auto) 5.8 Lymph # (Auto) 0.0 L [place] # (Auto) 0.1 Eos # (Auto) 0.0 Baso # (Auto) 0.0 WBC Differential . Diff Scan Auto diff confirmed Differential Comment . Sodium Potassium Chloride Carbon Dioxide Anion Gap BUN Creatinine Estimated GFR POC Glucose 127 H 163 H Random Glucose Calcium Phosphorus Magnesium Tacrolimus Assessment and Plan - Assessment (1) ESRD (end stage renal disease) on dialysis Code(s): N18.6 - End stage renal disease; Z99.2 - Dependence on renal dialysis Status: Acute (2) HTN (hypertension) Code(s): I10 - Essential (primary) hypertension Status: Acute - Plan Mr Greg Gonzalez has ESRD secondary to htn, and is was admitted for donor kidney transplantation. S/P DDKT to left iliac fossa. POD#2 Allograft function: improving. Immunosuppression: Thymo induction; Has had 2 doses of 1.5 mg/kg thymo so far. Due to 3rd and last dose tomorrow. Maint: steroids + Cellcept 1000 BID + Tacrolimus 2 BID Patient with 400 ml UOP overnight. No clinical c/o at this time. Lucretia po. On renal diet. Good UOP. Hyperkalemia improved, On Veltassa. Will recheck labs at 1400 today. On BP meds. Will start flomax (help avoid urinary retention)
--- NOTE | 2018-09-05 14:24 | DRUGHERB ---
Patient: Greg Gonzalez. = 1960 / [id number] Reviewed patient medication list and recommended the following: -Continue CellCept and Tacrolimus. -Based on Transplant protocol will hold Thymoglobulin today but will administer Solumedrol at a dose of 90mg x 1 at 11:30 today. -Noted patient Potassium level of 5.3 but his UOP improving and SCR trending down, continue Veltassa and continue monitoring of K level. Might consider K level drawn by 1400 with an option of an extra Veltassa dose if level continue to elevate. -Noted HGB level trending down since admission which might be dilutional, recommended iron profile check in AM to assess iron level before anticipated discharge on Sunday. -Recommended switch of Morphine [employer] or oral Percocet which will be assessed in AM after patient start ambulating. -Planning to start Valcyte, Bactrim and Nystatin in AM. Rachid Pillai, PharmD 09/05/18
[2018-09-05 15:06] LABS: Calcium 8.6 mg/dL (8.5-10.1); Potassium 5.2 meq/L (3.5-5.1)
[2018-09-06] MEDS: Dextrose 5%/NaCl 0.45% Inj 1,000 ML IV.CONT SCH (03:44)
[2018-09-06 05:26] LABS: Baso % (Auto) 0.4 % (0.0-2.0); Eos % (Auto) 0.1 % (0.0-4.0); Hematocrit 37.1 % (39.0-51.0); Hemoglobin 12.3 gm/dL (13.0-17.0); Lymph # (Auto) 0.1 th/mm3 (1.0-4.8); Lymph % (Auto) 0.8 % (9.0-44.0); Mean Corpuscular HGB Conc 33.2 % (32.0-36.0); Mean Corpuscular Hemoglobin 30.7 pg (27.0-34.0); Mean Corpuscular Volume 92.7 fL (80.0-100.0); Mean Platelet Volume 8.1 fL (7.0-11.0); Mono # (Auto) 0.2 th/mm3 (0.0-0.9); Mono % (Auto) 3.2 % (0.0-8.0); Neut # (Auto) 7.3 th/mm3 (1.8-7.7); Neut % (Auto) 95.5 % (16.0-70.0); Platelet Count 82 th/mm3 (150-450); Red Blood Count 4.01 mil/mm3 (4.50-5.90); Red Cell Distribution Width 16.2 % (11.6-17.2); White Blood Count 7.7 th/mm3 (4.0-11.0)
[2018-09-06 05:28] LABS: Reticulocyte Percent 1.4 % (0.4-3.0)
[2018-09-06 05:51] LABS: % Iron Saturation 57.3 % (20-50); Calcium 8.9 mg/dL (8.5-10.1); Carbon Dioxide 21.2 meq/L (21.0-32.0); Magnesium 2.2 mg/dL (1.5-2.5); Phosphorus 6.3 mg/dL (2.5-4.9); Potassium 5.9 meq/L (3.5-5.1)
[2018-09-06] MEDS: Mycophenolate Mofetil 250 MG Capsule PO SCH ×2 (07:14→17:58)
[2018-09-06] MEDS: Insulin NovoLOG Aspart Correctional Sugar Inj SQ SCH ×4 (07:24→21:49)
[2018-09-06 07:58] LABS: Platelet Morphology Normal (Normal)
[2018-09-06] MEDS: Pantoprazole Inj 40 MG Vial IV.PUSH SCH (08:29)
[2018-09-06] MEDS: Docusate Sodium 100 MG Capsule PO SCH ×2 (08:29→21:46)
[2018-09-06] MEDS ORDERED: Hydrocortisone Sod Succinate 100 MG Vial IV.PUSH PRN (09:04)
--- NOTE | 2018-09-06 09:16 | P.PNNP ---
Subjective Interval history: Patient status post kidney transplant doing well good urine output, potassium slightly high likely due to urinary insufficiency and medications, he had bowel movement yesterday Denies any abdominal pain, incision is healing on the left lower abdominal Physical Exam Vital signs: Vital Signs 09/05/18 10:00 09/05/18 11:00 09/05/18 12:00 Temperature 98.2 F Pulse Rate 84 85 91 H Respiratory Rate 16 Blood Pressure 145/74 H Pulse Oximetry 94 L 09/05/18 13:00 09/05/18 14:00 09/05/18 15:00 Temperature 98.4 F Pulse Rate 89 83 85 Respiratory Rate 16 Blood Pressure 169/89 H Pulse Oximetry 92 L 09/05/18 16:00 09/05/18 17:00 09/05/18 18:00 Temperature Pulse Rate 72 86 73 Respiratory Rate Blood Pressure Pulse Oximetry 09/05/18 19:00 09/05/18 20:00 09/05/18 21:00 Temperature 98.9 F Pulse Rate 124 H 122 H 78 Respiratory Rate 20 Blood Pressure 152/98 H Pulse Oximetry 98 09/05/18 22:00 09/05/18 23:00 09/06/18 00:00 Temperature Pulse Rate 72 112 H 116 H Respiratory Rate Blood Pressure Pulse Oximetry 09/06/18 00:50 09/06/18 01:00 09/06/18 02:00 Temperature 98.8 F Pulse Rate 115 H 120 H 120 H Respiratory Rate 16 Blood Pressure 156/98 H Pulse Oximetry 98 09/06/18 03:00 09/06/18 04:00 09/06/18 07:00 Temperature 97.6 F Pulse Rate 66 65 77 Respiratory Rate 16 Blood Pressure 152/77 H Pulse Oximetry 98 95 09/06/18 08:00 Temperature Pulse Rate 70 Respiratory Rate Blood Pressure Pulse Oximetry Intake & Output 09/05/18 09/06/18 09/06/18 18:59 06:59 18:59 Intake Total 1200 / 1200 1480 / 1480 Output Total 2495 / 2495 2460 / 2460 375 / 375 Balance -1295 / -1295 -980 / -980 -375 / -375 Weight 107 kg Intake: IV 1000 / 1000 D5W/1/2 NS Inj 1,000 ML @ 40 1000 / 1000 mls/hr IV.CONT .Q24H [facility] Rx#: [id number] Oral 1200 / 1200 480 / 480 Output: Urine 175 / 175 Urine Amount (Catheter) 2319 2460 / 2460 375 / 375 Indwelling Urethral Catheter 2319 / 2460 375 / 375 Other: Date of Last Bowel Movement 09/05/18 # Bowel Movements 1 Narrative: GENERAL: Very pleasant 58 yo male, well nourished well developed patient , in nad. CARDIOVASCULAR: Regular rate and rhythm. RESPIRATORY: No accessory muscle use. Clear to auscultation. Breath sounds equal bilaterally. GASTROINTESTINAL: Abdomen soft, nondistended. Left side dressing at the surgical site CDI. MUSCULOSKELETAL: AV Fistula left arm , + bruit. Extremities without clubbing, cyanosis, or edema. No obvious deformities. NEUROLOGICAL: Awake and alert. No obvious cranial nerve deficits. Motor grossly within normal limits. Five out of 5 muscle strength in the arms and legs. Normal speech. PSYCHIATRIC: Appropriate mood and affect; insight and judgment normal. - Urinary Catheter Management Indwelling Urethral Catheter Cath placed during this visit: yes Reason for continuing: Hourly intake/output Insertion date: 09/04/18 Insertion time: 21:35 Assessment and Plan - Assessment (1) ESRD (end stage renal disease) on dialysis Code(s): N18.6 - End stage renal disease; Z99.2 - Dependence on renal dialysis Status: Acute (2) HTN (hypertension) Code(s): I10 - Essential (primary) hypertension Status: Acute - Plan Patient has kidney transplant doing well creatinine declined UOP increased K 5.9, Veltassa increased to 16.8 overall improved drink water continue with K restriction, 2g Na decrease IVF BP high, his heart rate increase and metoprolol dose increased to 50 mg twice daily Discussed with Dr. Staley getting Thymoglobulin on Tacrolimus/MMF follow Tacrolimus levels
--- NOTE | 2018-09-06 10:54 | P.PNIM ---
Subjective Interval history: f/u; s/p kidney transplant in no acute distress. denies pain. no sob or fever. Physical Exam Vital signs: Vital Signs 09/05/18 11:00 09/05/18 12:00 09/05/18 13:00 Temperature 98.2 F Pulse Rate 85 91 H 89 Respiratory Rate 16 Blood Pressure 145/74 H Pulse Oximetry 94 L 09/05/18 14:00 09/05/18 15:00 09/05/18 16:00 Temperature 98.4 F Pulse Rate 83 85 72 Respiratory Rate 16 Blood Pressure 169/89 H Pulse Oximetry 92 L 09/05/18 17:00 09/05/18 18:00 09/05/18 19:00 Temperature Pulse Rate 86 73 124 H Respiratory Rate Blood Pressure Pulse Oximetry 09/05/18 20:00 09/05/18 21:00 09/05/18 22:00 Temperature 98.9 F Pulse Rate 122 H 78 72 Respiratory Rate 20 Blood Pressure 152/98 H Pulse Oximetry 98 09/05/18 23:00 09/06/18 00:00 09/06/18 00:50 Temperature 98.8 F Pulse Rate 112 H 116 H 115 H Respiratory Rate 16 Blood Pressure 156/98 H Pulse Oximetry 98 09/06/18 01:00 09/06/18 02:00 09/06/18 03:00 Temperature Pulse Rate 120 H 120 H 66 Respiratory Rate Blood Pressure Pulse Oximetry 98 09/06/18 04:00 09/06/18 07:00 09/06/18 08:00 Temperature 97.6 F Pulse Rate 65 77 70 Respiratory Rate 16 Blood Pressure 152/77 H Pulse Oximetry 95 09/06/18 09:00 09/06/18 10:00 Temperature Pulse Rate 71 67 Respiratory Rate Blood Pressure Pulse Oximetry Intake & Output 09/05/18 09/06/18 09/06/18 18:59 06:59 18:59 Intake Total 1200 / 1200 1480 / 1480 Output Total 2495 / 2495 2460 / 2460 700 / 700 Balance -1295 / -1295 -980 / -980 -700 / -700 Weight 107 kg Intake: IV 1000 / 1000 D5W/1/2 NS Inj 1,000 ML @ 40 1000 / 1000 mls/hr IV.CONT .Q24H [facility] Rx#: [id number] Oral 1200 / 1200 480 / 480 Output: Urine 175 / 175 Urine Amount (Catheter) 2320 / 2320 2460 / 2460 700 / 700 Indwelling Urethral Catheter 2319 / 2320 2460 / 2460 700 / 700 Other: Date of Last Bowel Movement 09/05/18 # Bowel Movements 1 - Constitutional no acute distress - Routine Respiratory Exam Present: CTA bilaterally - Routine Cardiovascular Exam Present: RRR - Routine Abdominal Exam Present: soft - Routine Extremities Exam Comments: no pedal edema. - Routine Neurological Exam Present: alert, oriented X3 - Urinary Catheter Management Indwelling Urethral Catheter Cath placed during this visit: yes Reason for continuing: Hourly intake/output Insertion date: 09/04/18 Insertion time: 21:35 Results - Labs CBC & Chem 7: 09/06/18 05:13 09/06/18 05:13 Laboratory Results - last 24 hr 09/03/18 09/05/18 09/05/18 13:32 04:47 10:54 WBC RBC Hgb Hct MCV MCH MCHC RDW Plt Count MPV Prelim Diff (Auto) Neut % (Auto) Lymph % (Auto) [place] % (Auto) Eos % (Auto) Baso % (Auto) Neut # (Auto) Lymph # (Auto) [place] # (Auto) Eos # (Auto) Baso # (Auto) WBC Differential Diff Scan Differential Comment Platelet Estimate Platelet Morphology Retic Count Absolute Retic Sodium Potassium Chloride Carbon Dioxide Anion Gap BUN Creatinine Estimated GFR POC Glucose 163 H Random Glucose Calcium Phosphorus Magnesium Iron TIBC % Saturation Tacrolimus Less than 2.0 L MTS Gel Crossmatch See Detail 09/05/18 09/05/18 09/05/18 14:17 16:18 22:03 WBC RBC Hgb Hct MCV MCH MCHC RDW Plt Count MPV Prelim Diff (Auto) Neut % (Auto) Lymph % (Auto) [place] % (Auto) Eos % (Auto) Baso % (Auto) Neut # (Auto) Lymph # (Auto) [place] # (Auto) Eos # (Auto) Baso # (Auto) WBC Differential Diff Scan Differential Comment Platelet Estimate Platelet Morphology Retic Count Absolute Retic Sodium 131 L Potassium 5.2 H Chloride 96 L Carbon Dioxide 23.0 Anion Gap 12 BUN 69 H Creatinine 7.71 H Estimated GFR 7 L POC Glucose 150 H 161 H Random Glucose 152 H Calcium 8.6 Phosphorus Magnesium Iron TIBC % Saturation Tacrolimus MTS Gel Crossmatch 09/06/18 09/06/1809/06/18 05:13 05:13 05:13 WBC 7.7 RBC 4.01 L Hgb 12.3 L Hct 37.1 L MCV 92.7 MCH 30.7 MCHC 33.2 RDW 16.2 Plt Count 82 L MPV 8.1 Prelim Diff (Auto) Slide review pending Neut % (Auto) 95.5 H Lymph % (Auto) 0.8 L [place] % (Auto) 3.2 Eos % (Auto) 0.1 Baso % (Auto) 0.4 Neut # (Auto) 7.3 Lymph # (Auto) 0.1 L [place] # (Auto) 0.2 Eos # (Auto) 0.0 Baso # (Auto) 0.0 WBC Differential . Diff Scan Auto diff confirmed Differential Comment . Platelet Estimate Low L Platelet Morphology Normal Retic Count 1.4 Absolute Retic 54.6 Sodium 131 L Potassium 5.9 H Chloride 100 Carbon Dioxide 21.2 Anion Gap 10 BUN 75 H Creatinine 7.09 H Estimated GFR 8 L POC Glucose Random Glucose 153 H Calcium 8.9 Phosphorus 6.3 H D Magnesium 2.2 Iron 105 TIBC 183 L % Saturation 57.3 H Tacrolimus MTS Gel Crossmatch 09/06/18 07:18 WBC RBC Hgb Hct MCV MCH MCHC RDW Plt Count MPV Prelim Diff (Auto) Neut % (Auto) Lymph % (Auto) [place] % (Auto) Eos % (Auto) Baso % (Auto) Neut # (Auto) Lymph # (Auto) [place] # (Auto) Eos # (Auto) Baso # (Auto) WBC Differential Diff Scan Differential Comment Platelet Estimate Platelet Morphology Retic Count Absolute Retic Sodium Potassium Chloride Carbon Dioxide Anion Gap BUN Creatinine Estimated GFR POC Glucose 147 H Random Glucose Calcium Phosphorus Magnesium Iron TIBC % Saturation Tacrolimus MTS Gel Crossmatch Assessment and Plan - Plan A/P S/P kidney transplant H/H fairly stable Pain management per pain scale Potassium elevated - on Veltassa Monitor urine output On Tacrolimus/MMF, check Tacrolimus levels Nephrology and transplant surgery following. Hypertension continue Metoprolol and monitor. DVT ppx per surgeon Discharge Planning: when cleared by nephrology and transplant surgery.
--- NOTE | 2018-09-06 11:14 | P.PNTS ---
Subjective Interval history: Some "heart burn" last night. + small BM yesterday. Heartburn improved. Pain well controlled. Physical Exam Vital signs: Vital Signs 09/05/18 11:00 09/05/18 12:00 09/05/18 13:00 Temperature 98.2 F Pulse Rate 85 91 H 89 Respiratory Rate 16 Blood Pressure 145/74 H Pulse Oximetry 94 L 09/05/18 14:00 09/05/18 15:00 09/05/18 16:00 Temperature 98.4 F Pulse Rate 83 85 72 Respiratory Rate 16 Blood Pressure 169/89 H Pulse Oximetry 92 L 09/05/18 17:00 09/05/18 18:00 09/05/18 19:00 Temperature Pulse Rate 86 73 124 H Respiratory Rate Blood Pressure Pulse Oximetry 09/05/18 20:00 09/05/18 21:00 09/05/18 22:00 Temperature 98.9 F Pulse Rate 122 H 78 72 Respiratory Rate 20 Blood Pressure 152/98 H Pulse Oximetry 98 09/05/18 23:00 09/06/18 00:00 09/06/18 00:50 Temperature 98.8 F Pulse Rate 112 H 116 H 115 H Respiratory Rate 16 Blood Pressure 156/98 H Pulse Oximetry 98 09/06/18 01:00 09/06/18 02:00 09/06/18 03:00 Temperature Pulse Rate 120 H 120 H 66 Respiratory Rate Blood Pressure Pulse Oximetry 98 09/06/18 04:00 09/06/18 07:00 09/06/18 08:00 Temperature 97.6 F Pulse Rate 65 77 70 Respiratory Rate 16 Blood Pressure 152/77 H Pulse Oximetry 95 09/06/18 09:00 09/06/18 10:00 Temperature Pulse Rate 71 67 Respiratory Rate Blood Pressure Pulse Oximetry Intake & Output 09/05/18 09/06/18 09/06/18 18:59 06:59 18:59 Intake Total 1200 / 1200 1480 / 1480 Output Total 2495 / 2495 2460 / 2460 375 / 375 Balance -1295 / -1295 -980 / -980 -375 / -375 Weight 107 kg Intake: IV 1000 / 1000 D5W/1/2 NS Inj 1,000 ML @ 40 1000 / 1000 mls/hr IV.CONT .Q24H [facility] Rx#: [id number] Oral 1200 / 1200 480 / 480 Output: Urine 175 / 175 Urine Amount (Catheter) 2319 2460 / 2460 375 / 375 Indwelling Urethral Catheter 2319 375 / 375 Other: Date of Last Bowel Movement 09/05/18 # Bowel Movements 1 - Constitutional no acute distress - Routine HEENT Exam Head: Present: normocephalic, atraumatic Eye: Present: EOMI ENT: Present: mucous membranes moist - Routine Neck Exam Present: supple - Routine Respiratory Exam Present: CTA bilaterally - Routine Cardiovascular Exam Present: RRR, S1, S2 - Routine Abdominal Exam Present: soft, normoactive bowel sounds, wound (Wound CDI without EFT.) - Routine Extremities Exam Present: pulses intact Comments: Calves soft NT B. No edema. No palpable cords - Routine Skin Exam Present: intact - Routine Neurological Exam Present: alert, oriented X3 - Detailed Neurological Exam: Coma Scale Verbal Response: Oriented - Routine Psychiatric Exam Present: normal affect, normal thought process - Urinary Catheter Management Indwelling Urethral Catheter Cath placed during this visit: yes Reason for continuing: Hourly intake/output Insertion date: 09/04/18 Insertion time: 21:35 Results - Labs CBC & Chem 7: 09/06/18 05:13 09/06/18 05:13 Laboratory Results - last 24 hr 09/03/18 09/05/18 09/05/18 13:32 04:47 10:54 WBC RBC Hgb Hct MCV MCH MCHC RDW Plt Count MPV Prelim Diff (Auto) Neut % (Auto) Lymph % (Auto) [place] % (Auto) Eos % (Auto) Baso % (Auto) Neut # (Auto) Lymph # (Auto) [place] # (Auto) Eos # (Auto) Baso # (Auto) WBC Differential Diff Scan Differential Comment Platelet Estimate Platelet Morphology Retic Count Absolute Retic Sodium Potassium Chloride Carbon Dioxide Anion Gap BUN Creatinine Estimated GFR POC Glucose 163 H Random Glucose Calcium Phosphorus Magnesium Iron TIBC % Saturation Tacrolimus Less than 2.0 L MTS Gel Crossmatch See Detail 09/05/18 09/05/18 09/05/18 14:17 16:18 22:03 WBC RBC Hgb Hct MCV MCH MCHC RDW Plt Count MPV Prelim Diff (Auto) Neut % (Auto) Lymph % (Auto) [place] % (Auto) Eos % (Auto) Baso % (Auto) Neut # (Auto) Lymph # (Auto) [place] # (Auto) Eos # (Auto) Baso # (Auto) WBC Differential Diff Scan Differential Comment Platelet Estimate Platelet Morphology Retic Count Absolute Retic Sodium 131 L Potassium 5.2 H Chloride 96 L Carbon Dioxide 23.0 Anion Gap 12 BUN 69 H Creatinine 7.71 H Estimated GFR 7 L POC Glucose 150 H 161 H Random Glucose 152 H Calcium 8.6 Phosphorus Magnesium Iron TIBC % Saturation Tacrolimus MTS Gel Crossmatch 09/06/18 09/06/18 09/06/18 05:13 05:13 05:13 WBC 7.7 RBC 4.01 L Hgb 12.3 L Hct 37.1 L MCV 92.7 MCH 30.7 MCHC 33.2 RDW 16.2 Plt Count 82 L MPV 8.1 Prelim Diff (Auto) Slide review pending Neut % (Auto) 95.5 H Lymph % (Auto) 0.8 L [place] % (Auto) 3.2 Eos % (Auto) 0.1 Baso % (Auto) 0.4 Neut # (Auto) 7.3 Lymph # (Auto) 0.1 L [place] # (Auto) 0.2 Eos # (Auto) 0.0 Baso # (Auto) 0.0 WBC Differential . Diff Scan Auto diff confirmed Differential Comment . Platelet Estimate Low L Platelet Morphology Normal Retic Count 1.4 Absolute Retic 54.6 Sodium 131 L Potassium 5.9 H Chloride 100 Carbon Dioxide 21.2 Anion Gap 10 BUN 75 H Creatinine 7.09 H Estimated GFR 8 L POC Glucose Random Glucose 153 H Calcium 8.9 Phosphorus 6.3 H D Magnesium 2.2 Iron 105 TIBC 183 L % Saturation 57.3 H Tacrolimus MTS Gel Crossmatch 09/06/18 07:18 WBC RBC Hgb Hct MCV MCH MCHC RDW Plt Count MPV Prelim Diff (Auto) Neut % (Auto) Lymph % (Auto) [place] % (Auto) Eos % (Auto) Baso % (Auto) Neut # (Auto) Lymph # (Auto) [place] # (Auto) Eos # (Auto) Baso # (Auto) WBC Differential Diff Scan Differential Comment Platelet Estimate Platelet Morphology Retic Count Absolute Retic Sodium Potassium Chloride Carbon Dioxide Anion Gap BUN Creatinine Estimated GFR POC Glucose 147 H Random Glucose Calcium Phosphorus Magnesium Iron TIBC % Saturation Tacrolimus MTS Gel Crossmatch Assessment and Plan - Assessment (1) ESRD (end stage renal disease) on dialysis Code(s): N18.6 - End stage renal disease; Z99.2 - Dependence on renal dialysis Status: Acute (2) HTN (hypertension) Code(s): I10 - Essential (primary) hypertension Status: Acute - Plan Mr Greg Gonzalez has ESRD secondary to htn, and is was admitted for donor kidney transplantation. S/P DDKT to left iliac fossa. POD#3 Allograft function: improving. Immunosuppression: Thymo induction; Has had 2 doses of 1.5 mg/kg thymo so far. 3rd and last dose of thymo today. Maint: steroids + Cellcept 1000 BID + Tacrolimus 2 BID Patient with good UOP overnight. No clinical c/o at this time. DId have some heartburn last last night--better now. Lucretia po. On renal diet. Good UOP. Hyperkalemia persists --? due to meds and some residual ATN in transplant kidney , On Veltassa--dose increased. Will recheck labs at 1400 today. Some tachycardia last night. ? etiology. Some htn and weight increased from admit. Will give 40 mg lasix. Will check EKG. WIll increase toprol XL. On flomax (help avoid urinary retention)
[2018-09-06] MEDS ORDERED: Acetaminophen 325 MG Tablet PO ONE (11:30)
[2018-09-06] MEDS ORDERED: MethylPREDNISolone Sod Succinate Inj 125 MG/2 ML Vial IV.PUSH ONE (11:30)
[2018-09-06] MEDS ORDERED: ANTITHYMOCYTE IG IV.SIG ONE (12:00)
[2018-09-06] MEDS ORDERED: SODIUM CHLOR 0.9% IV.SIG ONE (12:00)
[2018-09-06 14:51] LABS: Calcium 8.4 mg/dL (8.5-10.1); Carbon Dioxide 21.3 meq/L (21.0-32.0); Potassium 5.2 meq/L (3.5-5.1)
[2018-09-07] MEDS ORDERED: Bisacodyl 10 MG Supp RECTAL PRN (01:28)
[2018-09-07 05:25] LABS: Baso % (Auto) 0.1 % (0.0-2.0); Hematocrit 35.3 % (39.0-51.0); Lymph # (Auto) 0.1 th/mm3 (1.0-4.8); Lymph % (Auto) 1.1 % (9.0-44.0); Mean Corpuscular HGB Conc 33.9 % (32.0-36.0); Mean Corpuscular Volume 91.4 fL (80.0-100.0); Mean Platelet Volume 8.7 fL (7.0-11.0); Mono # (Auto) 0.2 th/mm3 (0.0-0.9); Neut # (Auto) 4.7 th/mm3 (1.8-7.7); Neut % (Auto) 94.8 % (16.0-70.0); Platelet Count 74 th/mm3 (150-450); Red Blood Count 3.86 mil/mm3 (4.50-5.90); Red Cell Distribution Width 16.5 % (11.6-17.2)
[2018-09-07 05:51] LABS: Calcium 8.7 mg/dL (8.5-10.1); Magnesium 2.1 mg/dL (1.5-2.5)
[2018-09-07 05:57] LABS: Phosphorus 4.7 mg/dL (2.5-4.9)
[2018-09-07] MEDS: Mycophenolate Mofetil 250 MG Capsule PO SCH ×2 (06:25→18:22)
[2018-09-07] MEDS: Dextrose 5%/NaCl 0.45% Inj 1,000 ML IV.CONT SCH (06:26)
--- NOTE | 2018-09-07 07:38 | P.PNIM ---
Subjective Interval history: f/u; s/p kidney transplant in no acute distress. looks comfortable with no new complaints. good urine output. Physical Exam Vital signs: Vital Signs 09/06/18 08:00 09/06/18 09:00 09/06/18 10:00 Temperature Pulse Rate 70 71 67 Respiratory Rate Blood Pressure Pulse Oximetry 09/06/18 11:00 09/06/18 12:00 09/06/18 12:15 Temperature 98.0 F 98.0 F Pulse Rate 70 77 69 Respiratory Rate 16 16 Blood Pressure 116/66 121/70 Pulse Oximetry 95 96 09/06/18 13:00 09/06/18 14:00 09/06/18 15:00 Temperature 97.5 F L Pulse Rate 66 62 69 Respiratory Rate 16 Blood Pressure 162/77 H Pulse Oximetry 96 09/06/18 16:00 09/06/18 17:00 09/06/18 18:00 Temperature Pulse Rate 68 70 77 Respiratory Rate Blood Pressure Pulse Oximetry 09/06/18 19:00 09/06/18 19:50 09/06/18 20:00 Temperature 97.7 F Pulse Rate 67 67 68 Respiratory Rate 18 Blood Pressure 136/72 Pulse Oximetry 94 L 09/06/18 21:00 09/06/18 22:00 09/06/18 23:00 Temperature 97.7 F Pulse Rate 66 68 67 Respiratory Rate 19 Blood Pressure 151/79 H Pulse Oximetry 96 09/07/18 00:00 09/07/18 01:00 09/07/18 02:00 Temperature Pulse Rate 66 64 63 Respiratory Rate Blood Pressure Pulse Oximetry 09/07/18 03:00 09/07/18 04:00 09/07/18 05:00 Temperature 98.7 F Pulse Rate 58 L 61 61 Respiratory Rate 18 Blood Pressure 143/70 H Pulse Oximetry 93 L 09/07/18 06:00 Temperature Pulse Rate 61 Respiratory Rate Blood Pressure Pulse Oximetry Intake & Output 09/06/18 09/07/18 09/07/18 18:59 06:59 18:59 Intake Total 500 / 500 1480 / 1480 Output Total 2575 / 2575 1500 / 1500 Balance -2075 / -2075 -20 / -20 Weight 107.4 kg Intake: IV 500 / 500 1000 / 1000 D5W/1/2 NS Inj 1,000 ML @ 40 1000 / 1000 mls/hr IV.CONT .Q24H [facility] Rx#: [id number] Thymoglobulin Inj 117 MG In NS 500 / 500 Inj 500 ML @ 125 mls/hr IV.SIG ONCE ONE Rx#:[id number] Oral 480 / 480 Output: Urine Amount (Catheter) 2575 / 2575 1500 / 1500 Indwelling Urethral Catheter 2575 / 2575 1500 / 1500 - Constitutional no acute distress - Routine Respiratory Exam Present: CTA bilaterally - Routine Cardiovascular Exam Present: RRR - Routine Abdominal Exam Present: soft - Routine Extremities Exam Comments: no pedal edema. - Routine Neurological Exam Present: alert, oriented X3 - Urinary Catheter Management Indwelling Urethral Catheter Cath placed during this visit: yes Reason for continuing: Hourly intake/output Insertion date: 09/04/18 Insertion time: 21:35 Results - Labs CBC & Chem 7: 09/07/18 05:03 09/07/18 05:03 Laboratory Results - last 24 hr 09/06/18 09/06/18 09/06/18 05:13 05:13 12:01 WBC RBC Hgb Hct MCV MCH MCHC RDW Plt Count MPV Prelim Diff (Auto) Neut % (Auto) Lymph % (Auto) [place] % (Auto) Eos % (Auto) Baso % (Auto) Neut # (Auto) Lymph # (Auto) [place] # (Auto) Eos # (Auto) Baso # (Auto) WBC Differential . Diff Scan Auto diff confirmed Differential Comment Platelet Estimate Low L Platelet Morphology Normal Sodium Potassium Chloride Carbon Dioxide Anion Gap BUN Creatinine Estimated GFR POC Glucose 164 H Random Glucose Calcium Phosphorus Magnesium Tacrolimus 2.5 L 09/06/18 09/06/18 09/06/18 13:50 16:42 21:48 WBC RBC Hgb Hct MCV MCH MCHC RDW Plt Count MPV Prelim Diff (Auto) Neut % (Auto) Lymph % (Auto) [place] % (Auto) Eos % (Auto) Baso % (Auto) Neut # (Auto) Lymph # (Auto) [place] # (Auto) Eos # (Auto) Baso # (Auto) WBC Differential Diff Scan Differential Comment Platelet Estimate Platelet Morphology Sodium 134 L Potassium 5.2 H Chloride 102 Carbon Dioxide 21.3 Anion Gap 11 BUN 80 H Creatinine 6.55 H Estimated GFR 9 L POC Glucose 181 H 280 H Random Glucose 146 H Calcium 8.4 L Phosphorus Magnesium Tacrolimus 09/07/18 09/07/18 05:03 05:03 WBC 5.0 RBC 3.86 L Hgb 12.0 L Hct 35.3 L MCV 91.4 MCH 31.0 MCHC 33.9 RDW 16.5 Plt Count 74 L MPV 8.7 Prelim Diff (Auto) Slide review pending Neut % (Auto) 94.8 H Lymph % (Auto) 1.1 L [place] % (Auto) 4.0 Eos % (Auto) 0.0 Baso % (Auto) 0.1 Neut # (Auto) 4.7 Lymph # (Auto) 0.1 L [place] # (Auto) 0.2 Eos # (Auto) 0.0 Baso # (Auto) 0.0 WBC Differential Diff Scan Differential Comment . Platelet Estimate Platelet Morphology Sodium 137 Potassium 5.0 Chloride 104 Carbon Dioxide 21.0 Anion Gap 12 BUN 82 H Creatinine 5.66 H Estimated GFR 10 L POC Glucose Random Glucose 191 H Calcium 8.7 Phosphorus 4.7 D Magnesium 2.1 Tacrolimus Assessment and Plan - Plan A/P S/P kidney transplant Hyperkalemia- resolved H/H fairly stable continue Veltassa Monitor urine output On Tacrolimus/Cellcept. Nephrology and transplant surgery following. Hypertension continue Metoprolol and monitor. DVT ppx per surgeon Discharge Planning: when cleared by nephrology and transplant surgery- likely early this week.
[2018-09-07] MEDS: Insulin NovoLOG Aspart Correctional Sugar Inj SQ SCH ×4 (08:26→21:06)
[2018-09-07] MEDS: Docusate Sodium 100 MG Capsule PO SCH ×2 (08:27→20:50)
[2018-09-07] MEDS: Pantoprazole Inj 40 MG Vial IV.PUSH SCH (08:28)
[2018-09-07 08:34] LABS: Platelet Morphology Normal (Normal)
--- NOTE | 2018-09-07 10:48 | P.PNTS ---
Subjective Interval history: No c/o. Lucretia po well. No Bm in the last day. but did have a small one a couple days ago. Physical Exam Vital signs: Vital Signs 09/06/18 11:00 09/06/18 12:00 09/06/18 12:15 Temperature 98.0 F 98.0 F Pulse Rate 70 77 69 Respiratory Rate 16 16 Blood Pressure 116/66 121/70 Pulse Oximetry 95 96 09/06/18 13:00 09/06/18 14:00 09/06/18 15:00 Temperature 97.5 F L Pulse Rate 66 62 69 Respiratory Rate 16 Blood Pressure 162/77 H Pulse Oximetry 96 09/06/18 16:00 09/06/18 17:00 09/06/18 18:00 Temperature Pulse Rate 68 70 77 Respiratory Rate Blood Pressure Pulse Oximetry 09/06/18 19:00 09/06/18 19:50 09/06/18 20:00 Temperature 97.7 F Pulse Rate 67 67 68 Respiratory Rate 18 Blood Pressure 136/72 Pulse Oximetry 94 L 09/06/18 21:00 09/06/18 22:00 09/06/18 23:00 Temperature 97.7 F Pulse Rate 66 68 67 Respiratory Rate 19 Blood Pressure 151/79 H Pulse Oximetry 96 09/07/18 00:00 09/07/18 01:00 09/07/18 02:00 Temperature Pulse Rate 66 64 63 Respiratory Rate Blood Pressure Pulse Oximetry 09/07/18 03:00 09/07/18 04:00 09/07/18 05:00 Temperature 98.7 F Pulse Rate 58 L 61 61 Respiratory Rate 18 Blood Pressure 143/70 H Pulse Oximetry 93 L 09/07/18 06:00 Temperature Pulse Rate 61 Respiratory Rate Blood Pressure Pulse Oximetry Intake & Output 09/06/18 09/07/18 09/07/18 18:59 06:59 18:59 Intake Total 500 / 500 1480 / 1480 150 / 150 Output Total 2575 / 2575 1500 / 1500 Balance -2075 / -2074 -20 / -20 150 / 150 Weight 107.4 kg Intake: IV 500 / 500 1000 / 1000 150 / 150 D5W/1/2 NS Inj 1,000 ML @ 40 1000 / 1000 150 / 150 mls/hr IV.CONT .Q24H [facility] Rx#: [id number] Thymoglobulin Inj 117 MG In NS 500 / 500 Inj 500 ML @ 125 mls/hr IV.SIG ONCE ONE Rx#:[id number] Oral 480 / 480 Output: Urine Amount (Catheter) 2575 / 2575 1500 / 1500 Indwelling Urethral Catheter 2575 / 2575 1500 / 1500 - Constitutional no acute distress - Routine HEENT Exam Head: Present: normocephalic, atraumatic Eye: Present: EOMI ENT: Present: mucous membranes moist - Routine Neck Exam Present: supple, full ROM - Routine Respiratory Exam Present: CTA bilaterally - Routine Cardiovascular Exam Present: RRR, S1, S2 - Routine Abdominal Exam Present: soft, normoactive bowel sounds Comments: Wound CDI without EFT - Routine Extremities Exam Present: pulses intact Comments: Calves soft NT B. No paplable cords - Routine Skin Exam Present: intact - Routine Neurological Exam Present: alert, oriented X3 - Detailed Neurological Exam: Coma Scale Verbal Response: Oriented - Routine Psychiatric Exam Present: normal affect, normal thought process - Urinary Catheter Management Indwelling Urethral Catheter Cath placed during this visit: yes Reason for continuing: Hourly intake/output Insertion date: 09/04/18 Insertion time: 21:35 Results - Labs CBC & Chem 7: 09/07/18 05:03 09/07/18 05:03 Laboratory Results - last 24 hr 09/06/18 09/06/18 09/06/18 05:13 12:01 13:50 WBC RBC Hgb Hct MCV MCH MCHC RDW Plt Count MPV Prelim Diff (Auto) Neut % (Auto) Lymph % (Auto) [place] % (Auto) Eos % (Auto) Baso % (Auto) Neut # (Auto) Lymph # (Auto) [place] # (Auto) Eos # (Auto) Baso # (Auto) WBC Differential Diff Scan Differential Comment Platelet Estimate Platelet Morphology Sodium 134 L Potassium 5.2 H Chloride 102 Carbon Dioxide 21.3 Anion Gap 11 BUN 80 H Creatinine 6.55 H Estimated GFR 9 L POC Glucose 164 H Random Glucose 146 H Calcium 8.4 L Phosphorus Magnesium Tacrolimus 2.5 L 09/06/18 09/06/18 09/07/18 16:42 21:48 05:03 WBC RBC Hgb Hct MCV MCH MCHC RDW Plt Count MPV Prelim Diff (Auto) Neut % (Auto) Lymph % (Auto) [place] % (Auto) Eos % (Auto) Baso % (Auto) Neut # (Auto) Lymph # (Auto) [place] # (Auto) Eos # (Auto) Baso # (Auto) WBC Differential Diff Scan Differential Comment Platelet Estimate Platelet Morphology Sodium 137 Potassium 5.0 Chloride 104 Carbon Dioxide 21.0 Anion Gap 12 BUN 82 H Creatinine 5.66 H Estimated GFR 10 L POC Glucose 181 H 280 H Random Glucose 191 H Calcium 8.7 Phosphorus 4.7 D Magnesium 2.1 Tacrolimus 09/07/18 09/07/18 05:03 08:01 WBC 5.0 RBC 3.86 L Hgb 12.0 L Hct 35.3 L MCV 91.4 MCH 31.0 MCHC 33.9 RDW 16.5 Plt Count 74 L MPV 8.7 Prelim Diff (Auto) Slide review pending Neut % (Auto) 94.8 H Lymph % (Auto) 1.1 L [place] % (Auto) 4.0 Eos % (Auto) 0.0 Baso % (Auto) 0.1 Neut # (Auto) 4.7 Lymph # (Auto) 0.1 L [place] # (Auto) 0.2 Eos # (Auto) 0.0 Baso # (Auto) 0.0 WBC Differential . Diff Scan Auto diff confirmed Differential Comment . Platelet Estimate Low L Platelet Morphology Normal Sodium Potassium Chloride Carbon Dioxide Anion Gap BUN Creatinine Estimated GFR POC Glucose 134 H Random Glucose Calcium Phosphorus Magnesium Tacrolimus Assessment and Plan - Assessment (1) ESRD (end stage renal disease) on dialysis Code(s): N18.6 - End stage renal disease; Z99.2 - Dependence on renal dialysis Status: Acute (2) HTN (hypertension) Code(s): I10 - Essential (primary) hypertension Status: Acute - Plan Mr Greg Gonzalez has ESRD secondary to htn, and is was admitted for donor kidney transplantation. S/P DDKT to left iliac fossa. POD#4 Allograft function: improving. Immunosuppression: Thymo induction; Has had 3 doses of 1.5 mg/kg thymo. Maint: steroids + Cellcept 1000 BID + Tacrolimus 2 BID, will increase to 5 mg BID today Patient with good UOP overnight. No clinical c/o at this time. Lucretia po. On renal diet. Good UOP. Hyperkalemia persists --? due to meds and some residual ATN in transplant kidney, but is better (5.0 today)., On Veltassa--dose increased. Weight increased from admit. Will give additional 40 mg lasix. Will check EKG. On flomax (help avoid urinary retention)... Had some ectopy this AM (? A flutter --but EKG remains NSR.. Will check troponin.. D/w hospitalist.. Will await troponin results.... Will consider cardiology consult if any additional events occur
--- NOTE | 2018-09-07 11:42 | P.PNNP ---
Subjective Interval history: Patient is alert, sitting on the chair, no SOB, no abd. pain. Physical Exam Vital signs: Vital Signs 09/06/18 12:00 09/06/18 12:15 09/06/18 13:00 Temperature 98.0 F Pulse Rate 77 69 66 Respiratory Rate 16 Blood Pressure 121/70 Pulse Oximetry 96 09/06/18 14:00 09/06/18 15:00 09/06/18 16:00 Temperature 97.5 F L Pulse Rate 62 69 68 Respiratory Rate 16 Blood Pressure 162/77 H Pulse Oximetry 96 09/06/18 17:00 09/06/18 18:00 09/06/18 19:00 Temperature Pulse Rate 70 77 67 Respiratory Rate Blood Pressure Pulse Oximetry 09/06/18 19:50 09/06/18 20:00 09/06/18 21:00 Temperature 97.7 F Pulse Rate 67 68 66 Respiratory Rate 18 Blood Pressure 136/72 Pulse Oximetry 94 L 09/06/18 22:00 09/06/18 23:00 09/07/18 00:00 Temperature 97.7 F Pulse Rate 68 67 66 Respiratory Rate 19 Blood Pressure 151/79 H Pulse Oximetry 96 09/07/18 01:00 09/07/18 02:00 09/07/18 03:00 Temperature 98.7 F Pulse Rate 64 63 58 L Respiratory Rate 18 Blood Pressure 143/70 H Pulse Oximetry 93 L 09/07/18 04:00 09/07/18 05:00 09/07/18 06:00 Temperature Pulse Rate 61 61 61 Respiratory Rate Blood Pressure Pulse Oximetry 09/07/18 07:00 09/07/18 08:00 09/07/18 09:00 Temperature 97.8 F Pulse Rate 64 63 77 Respiratory Rate 18 Blood Pressure 153/80 H Pulse Oximetry 97 09/07/18 10:00 09/07/18 11:00 Temperature 97.6 F Pulse Rate 67 68 Respiratory Rate 18 Blood Pressure 157/78 H Pulse Oximetry 94 L Intake & Output 09/06/18 09/07/18 09/07/18 18:59 06:59 18:59 Intake Total 500 / 500 1480 / 1480 150 / 150 Output Total 2575 / 2575 1500 / 1500 Balance -2075 / -2075 -20 / -20 150 / 150 Weight 107.4 kg Intake: IV 500 / 500 1000 / 1000 150 / 150 D5W/1/2 NS Inj 1,000 ML @ 40 1000 / 1000 150 / 150 mls/hr IV.CONT .Q24H [facility] Rx#: [id number] Thymoglobulin Inj 117 MG In NS 500 / 500 Inj 500 ML @ 125 mls/hr IV.SIG ONCE ONE Rx#:[id number] Oral 480 / 480 Output: Urine Amount (Catheter) 2575 / 2575 1500 / 1500 Indwelling Urethral Catheter 2575 / 2575 1500 / 1500 Narrative: GENERAL: Very pleasant 58 yo male, well nourished well developed patient , in nad. CARDIOVASCULAR: Regular rate and rhythm. RESPIRATORY: No accessory muscle use. Clear to auscultation. Breath sounds equal bilaterally. GASTROINTESTINAL: Abdomen soft, nondistended. Left side dressing at the surgical site CDI. MUSCULOSKELETAL: AV Fistula left arm , + bruit. Extremities without clubbing, cyanosis, or edema. No obvious deformities. NEUROLOGICAL: Awake and alert. No obvious cranial nerve deficits. Motor grossly within normal limits. Five out of 5 muscle strength in the arms and legs. Normal speech. PSYCHIATRIC: Appropriate mood and affect; insight and judgment normal. - Urinary Catheter Management Indwelling Urethral Catheter Cath placed during this visit: yes Reason for continuing: Hourly intake/output Insertion date: 09/04/18 Insertion time: 21:35 Assessment and Plan - Assessment (1) ESRD (end stage renal disease) on dialysis Code(s): N18.6 - End stage renal disease; Z99.2 - Dependence on renal dialysis Status: Acute (2) HTN (hypertension) Code(s): I10 - Essential (primary) hypertension Status: Acute - Plan Patient has kidney transplant doing well creatinine declined UOP increased K is now normal. Creatinine improve slightly to 5.6. overall improved Encourage oral fluid intake. decrease IVF Discussed with Dr. Staley on Tacrolimus/MMF follow Tacrolimus level is low, dose increased now to 5 mh BID. Follow the level.
[2018-09-07] MEDS: Nystatin Liq 500,000 UNIT/5 ML UDC SWISH-SWAL SCH ×3 (13:48→20:50)
--- NOTE | 2018-09-07 14:00 | ECG ---
Date Performed: 09/06/2018 Time Performed: 11:31:20 PTAGE: 58 years EKG: Sinus rhythm . Normal ECG PREVIOUS TRACING :09/03/2018 13.22 Since the previous tracing, no significant change noted DOCTOR: Garrett Garcia Interpretating Date/Time 09/07/2018 13:59:12
[2018-09-07] MEDS ORDERED: Labetalol HCl Inj 100 MG/20 ML Vial IV.PUSH ONE (22:30)
--- NOTE | 2018-09-07 22:34 | P.PNADD ---
Addendum to Inpatient Note Reason for Addendum: Additional Documentation Additional information: Patient have short runs of sinus tachycardia - asymptomatic - lytes from a.m. labs look normal. HR in 70's when I returned nurse's call. SBP > 160 - will give Labetalol 10 mg IV for BP control in lieu of hydralazine. Nurse reports possible run of ?a flutter? may have occurred on day shift resulting in stat EKG being obtained but EKG shows NSR. Continue to monitor overnight - defer to daytime attending for further management/consideration of cardiology consultation.
[2018-09-08 05:55] LABS: Baso % (Auto) 0.1 % (0.0-2.0); Eos % (Auto) 0.3 % (0.0-4.0); Hematocrit 37.1 % (39.0-51.0); Hemoglobin 12.4 gm/dL (13.0-17.0); Lymph # (Auto) 0.1 th/mm3 (1.0-4.8); Lymph % (Auto) 1.8 % (9.0-44.0); Mean Corpuscular HGB Conc 33.3 % (32.0-36.0); Mean Corpuscular Hemoglobin 30.4 pg (27.0-34.0); Mean Corpuscular Volume 91.2 fL (80.0-100.0); Mono # (Auto) 0.5 th/mm3 (0.0-0.9); Mono % (Auto) 8.5 % (0.0-8.0); Neut # (Auto) 5.4 th/mm3 (1.8-7.7); Neut % (Auto) 89.3 % (16.0-70.0); Platelet Count 78 th/mm3 (150-450); Red Blood Count 4.06 mil/mm3 (4.50-5.90); Red Cell Distribution Width 16.5 % (11.6-17.2)
[2018-09-08 06:17] LABS: Magnesium 1.9 mg/dL (1.5-2.5); Potassium 4.5 meq/L (3.5-5.1)
[2018-09-08] MEDS: Mycophenolate Mofetil 250 MG Capsule PO SCH ×2 (06:25→17:39)
[2018-09-08] MEDS: predniSONE 20 MG Tablet PO SCH (08:38)
[2018-09-08] MEDS: Pantoprazole Inj 40 MG Vial IV.PUSH SCH (08:38)
[2018-09-08] MEDS: Nystatin Liq 500,000 UNIT/5 ML UDC SWISH-SWAL SCH ×4 (08:38→20:59)
[2018-09-08] MEDS: Docusate Sodium 100 MG Capsule PO SCH ×2 (08:38→20:59)
[2018-09-08] MEDS: Insulin NovoLOG Aspart Correctional Sugar Inj SQ SCH ×4 (08:59→21:00)
[2018-09-08 09:34] LABS: Eosinophils 1 % (0-4); Lymphocytes 6 % (9-44); Monocytes 7 % (0-8); Myelocytes 2 % (0-0); Platelet Morphology Normal (Normal)
[2018-09-08 09:35] LABS: Ovalocytes 1+
--- NOTE | 2018-09-08 09:59 | P.PNIM ---
Subjective Interval history: f/u; s/p kidney transplant in no acute distress. denies pain. no fever. brief episode of tachycardia last night which has resolved. no chest pain or sob. Physical Exam Vital signs: Vital Signs 09/07/18 10:00 09/07/18 11:00 09/07/18 12:00 Temperature 97.6 F Pulse Rate 67 68 66 Respiratory Rate 18 Blood Pressure 157/78 H Pulse Oximetry 94 L 09/07/18 13:00 09/07/18 14:00 09/07/18 15:00 Temperature 98.0 F Pulse Rate 67 77 66 Respiratory Rate 18 Blood Pressure 140/79 Pulse Oximetry 95 09/07/18 16:00 09/07/18 17:00 09/07/18 18:00 Temperature Pulse Rate 65 63 70 Respiratory Rate Blood Pressure Pulse Oximetry 09/07/18 19:00 09/07/18 20:00 09/07/18 21:00 Temperature 97.6 F Pulse Rate 65 64 66 Respiratory Rate 20 Blood Pressure 151/74 H Pulse Oximetry 96 09/07/18 22:00 09/07/18 23:00 09/08/18 00:00 Temperature 97.5 F L Pulse Rate 128 H 75 72 Respiratory Rate 18 Blood Pressure 134/72 Pulse Oximetry 96 09/08/18 01:00 09/08/18 02:00 09/08/18 03:00 Temperature 97.5 F L Pulse Rate 64 64 65 Respiratory Rate 16 Blood Pressure 139/71 Pulse Oximetry 96 09/08/18 04:00 09/08/18 05:00 09/08/18 06:00 Temperature Pulse Rate 65 66 62 Respiratory Rate Blood Pressure Pulse Oximetry 09/08/18 07:00 09/08/18 08:00 09/08/18 09:00 Temperature 97.5 F L Pulse Rate 73 64 69 Respiratory Rate 18 Blood Pressure 172/84 H Pulse Oximetry 99 Intake & Output 09/07/18 09/08/18 09/08/18 18:59 06:59 18:59 Intake Total 1110 / 1110 240 / 240 Output Total 2650 / 2650 1175 / 1175 Balance -1540 / -1540 -935 / -935 Weight 104.5 kg Intake: IV 150 / 150 D5W/1/2 NS Inj 1,000 ML @ 40 150 / 150 mls/hr IV.CONT .Q24H [facility] Rx#: [id number] 1/2 Normal Saline Inj 1,000 ML 0 / 0 @ Titrate IV.CONT .Q0M [facility] Rx#: [id number] Oral 960 / 960 240 / 240 Output: Urine 200 / 200 1175 / 1175 Urine Amount (Catheter) 2450 / 2450 Indwelling Urethral Catheter 2450 / 2450 Other: Post Void Residual 0 # Voids 13 Date of Last Bowel Movement 09/07/18 09/07/18 - Constitutional no acute distress - Routine Respiratory Exam Present: CTA bilaterally - Routine Cardiovascular Exam Present: RRR - Routine Abdominal Exam Present: soft - Routine Extremities Exam Comments: no pedal edema. - Routine Neurological Exam Present: alert, oriented X3 - Urinary Catheter Management Indwelling Urethral Catheter Cath placed during this visit: yes, but has since been removed by the nurse Reason for continuing: Decision to DC catheter Insertion date: 09/04/18 Insertion time: 21:35 Removal date: 09/07/18 Removal time: 15:30 Results - Labs CBC & Chem 7: 09/08/18 04:50 09/08/18 04:50 Laboratory Results - last 24 hr 09/07/18 09/07/18 09/07/18 05:03 11:00 12:50 WBC RBC Hgb Hct MCV MCH MCHC RDW Plt Count MPV Prelim Diff (Auto) Neut % (Auto) Lymph % (Auto) [place] % (Auto) Eos % (Auto) Baso % (Auto) Neut # (Auto) Lymph # (Auto) [place] # (Auto) Eos # (Auto) Baso # (Auto) WBC Differential Seg Neuts % (Manual) Lymphocytes % (Manual) Monocytes % (Manual) Eosinophils % (Manual) Myelocytes % (Man) Abs Neuts (Manual) Differential Comment Platelet Estimate Platelet Morphology Ovalocytes Sodium Potassium Chloride Carbon Dioxide Anion Gap BUN Creatinine Estimated GFR POC Glucose 152 H Random Glucose Calcium Phosphorus Magnesium Troponin I Less than 0.02 L Tacrolimus 3.9 L 09/07/18 09/07/18 09/08/18 17:51 21:03 04:50 WBC RBC Hgb Hct MCV MCH MCHC RDW Plt Count MPV Prelim Diff (Auto) Neut % (Auto) Lymph % (Auto) [place] % (Auto) Eos % (Auto) Baso % (Auto) Neut # (Auto) Lymph # (Auto) [place] # (Auto) Eos # (Auto) Baso # (Auto) WBC Differential Seg Neuts % (Manual) Lymphocytes % (Manual) Monocytes % (Manual) Eosinophils % (Manual) Myelocytes % (Man) Abs Neuts (Manual) Differential Comment Platelet Estimate Platelet Morphology Ovalocytes Sodium 138 Potassium 4.5 Chloride 106 Carbon Dioxide 20.0 L Anion Gap 12 BUN 88 H Creatinine 4.35 H Estimated GFR 14 L POC Glucose 143 H 143 H Random Glucose 143 H Calcium 9.0 Phosphorus 4.0 Magnesium 1.9 Troponin I Tacrolimus 09/08/18 09/08/18 04:50 08:52 WBC 6.0 RBC 4.06 L Hgb 12.4 L Hct 37.1 L MCV 91.2 MCH 30.4 MCHC 33.3 RDW 16.5 Plt Count 78 L MPV 9.0 Prelim Diff (Auto) Slide review pending Neut % (Auto) 89.3 H Lymph % (Auto) 1.8 L [place] % (Auto) 8.5 H Eos % (Auto) 0.3 Baso % (Auto) 0.1 Neut # (Auto) 5.4 Lymph # (Auto) 0.1 L [place] # (Auto) 0.5 Eos # (Auto) 0.0 Baso # (Auto) 0.0 WBC Differential Manual diff final Seg Neuts % (Manual) 84 H Lymphocytes % (Manual) 6 L Monocytes % (Manual) 7 Eosinophils % (Manual) 1 Myelocytes % (Man) 2 H Abs Neuts (Manual) 5.2 Differential Comment . Platelet Estimate Low L Platelet Morphology Normal Ovalocytes 1+ H Sodium Potassium Chloride Carbon Dioxide Anion Gap BUN Creatinine Estimated GFR POC Glucose 127 H Random Glucose Calcium Phosphorus Magnesium Troponin I Tacrolimus Assessment and Plan - Plan A/P S/P kidney transplant Hyperkalemia- resolved H/H fairly stable continue Veltassa Monitor urine output On Tacrolimus/Cellcept. Nephrology and transplant surgery following. episodes of tachycardia/ history of a-fib received a dose of labetalol last night; will check echo and consult cardiology. Hypertension continue Metoprolol and monitor. DVT ppx per surgeon Discharge Planning: when cleared by nephrology and transplant surgery- likely early this week/ after cardiology evaluation.
--- NOTE | 2018-09-08 11:26 | P.PNNP ---
Subjective Interval history: Patient is alert, sitting on the chair, no SOB, no chest pain or palpitation. Physical Exam Vital signs: Vital Signs 09/07/18 12:00 09/07/18 13:00 09/07/18 14:00 Temperature Pulse Rate 66 67 77 Respiratory Rate Blood Pressure Pulse Oximetry 09/07/18 15:00 09/07/18 16:00 09/07/18 17:00 Temperature 98.0 F Pulse Rate 66 65 63 Respiratory Rate 18 Blood Pressure 140/79 Pulse Oximetry 95 09/07/18 18:00 09/07/18 19:00 09/07/18 20:00 Temperature 97.6 F Pulse Rate 70 65 64 Respiratory Rate 20 Blood Pressure 151/74 H Pulse Oximetry 96 09/07/18 21:00 09/07/18 22:00 09/07/18 23:00 Temperature 97.5 F L Pulse Rate 66 128 H 75 Respiratory Rate 18 Blood Pressure 134/72 Pulse Oximetry 96 09/08/18 00:00 09/08/18 01:00 09/08/18 02:00 Temperature Pulse Rate 72 64 64 Respiratory Rate Blood Pressure Pulse Oximetry 09/08/18 03:00 09/08/18 04:00 09/08/18 05:00 Temperature 97.5 F L Pulse Rate 65 65 66 Respiratory Rate 16 Blood Pressure 139/71 Pulse Oximetry 96 09/08/18 06:00 09/08/18 07:00 09/08/18 08:00 Temperature 97.5 F L Pulse Rate 62 73 64 Respiratory Rate 18 Blood Pressure 172/84 H Pulse Oximetry 99 09/08/18 09:00 09/08/18 10:00 Temperature Pulse Rate 69 82 Respiratory Rate Blood Pressure Pulse Oximetry Intake & Output 09/07/18 09/08/18 09/08/18 18:59 06:59 18:59 Intake Total 1110 / 1110 240 / 240 Output Total 2650 / 2650 1175 / 1175 Balance -1540 / -1540 -935 / -935 Weight 104.5 kg Intake: IV 150 / 150 D5W/1/2 NS Inj 1,000 ML @ 40 150 / 150 mls/hr IV.CONT .Q24H [facility] Rx#: [id number] 1/2 Normal Saline Inj 1,000 ML 0 / 0 @ Titrate IV.CONT .Q0M [facility] Rx#: [id number] Oral 960 / 960 240 / 240 Output: Urine 200 / 200 1175 / 1175 Urine Amount (Catheter) 2450 / 2450 Indwelling Urethral Catheter 2450 / 2450 Other: Post Void Residual 0 # Voids 13 Date of Last Bowel Movement 09/07/18 09/07/18 09/08/18 Narrative: GENERAL: Very pleasant 58 yo male, well nourished well developed patient , in nad. CARDIOVASCULAR: Regular rate and rhythm. RESPIRATORY: No accessory muscle use. Clear to auscultation. Breath sounds equal bilaterally. GASTROINTESTINAL: Abdomen soft, nondistended. Left side dressing at the surgical site CDI. MUSCULOSKELETAL: AV Fistula left arm , + bruit. Extremities without clubbing, cyanosis, or edema. No obvious deformities. NEUROLOGICAL: Awake and alert. No obvious cranial nerve deficits. Motor grossly within normal limits. Five out of 5 muscle strength in the arms and legs. Normal speech. PSYCHIATRIC: Appropriate mood and affect; insight and judgment normal. - Urinary Catheter Management Indwelling Urethral Catheter Cath placed during this visit: yes, but has since been removed by the nurse Reason for continuing: Decision to DC catheter Insertion date: 09/04/18 Insertion time: 21:35 Removal date: 09/07/18 Removal time: 15:30 Assessment and Plan - Assessment (1) ESRD (end stage renal disease) on dialysis Code(s): N18.6 - End stage renal disease; Z99.2 - Dependence on renal dialysis Status: Acute (2) HTN (hypertension) Code(s): I10 - Essential (primary) hypertension Status: Acute - Plan Patient has kidney transplant doing well creatinine declined UOP increased K is now normal. Creatinine continue to improve and now 4.3. K and Po4 normal. overall improved Encourage oral fluid intake. on Tacrolimus/MMF follow Tacrolimus level is pending now. Follow the urine out put and BMP.
--- NOTE | 2018-09-08 11:45 | P.PNTS ---
Subjective Interval history: No new c/o. Had a run of asymptomatic sinus tachycardia last night. Physical Exam Vital signs: Vital Signs 09/07/18 12:00 09/07/18 13:00 09/07/18 14:00 Temperature Pulse Rate 66 67 77 Respiratory Rate Blood Pressure Pulse Oximetry 09/07/18 15:00 09/07/18 16:00 09/07/18 17:00 Temperature 98.0 F Pulse Rate 66 65 63 Respiratory Rate 18 Blood Pressure 140/79 Pulse Oximetry 95 09/07/18 18:00 09/07/18 19:00 09/07/18 20:00 Temperature 97.6 F Pulse Rate 70 65 64 Respiratory Rate 20 Blood Pressure 151/74 H Pulse Oximetry 96 09/07/18 21:00 09/07/18 22:00 09/07/18 23:00 Temperature 97.5 F L Pulse Rate 66 128 H 75 Respiratory Rate 18 Blood Pressure 134/72 Pulse Oximetry 96 09/08/18 00:00 09/08/18 01:00 09/08/18 02:00 Temperature Pulse Rate 72 64 64 Respiratory Rate Blood Pressure Pulse Oximetry 09/08/18 03:00 09/08/18 04:00 09/08/18 05:00 Temperature 97.5 F L Pulse Rate 65 65 66 Respiratory Rate 16 Blood Pressure 139/71 Pulse Oximetry 96 09/08/18 06:00 09/08/18 07:00 09/08/18 08:00 Temperature 97.5 F L Pulse Rate 62 73 64 Respiratory Rate 18 Blood Pressure 172/84 H Pulse Oximetry 99 09/08/18 09:00 09/08/18 10:00 Temperature Pulse Rate 69 82 Respiratory Rate Blood Pressure Pulse Oximetry Intake & Output 09/07/18 09/08/18 09/08/18 18:59 06:59 18:59 Intake Total 1110 / 1110 240 / 240 Output Total 2650 / 2650 1175 / 1175 Balance -1540 / -1540 -935 / -935 Weight 104.5 kg Intake: IV 150 / 150 D5W/1/2 NS Inj 1,000 ML @ 40 150 / 150 mls/hr IV.CONT .Q24H NANETTE Rx#: [id number] 1/2 Normal Saline Inj 1,000 ML 0 / 0 @ Titrate IV.CONT .Q0M PRN Rx#: [id number] Oral 960 / 960 240 / 240 Output: Urine 200 / 200 1175 / 1175 Urine Amount (Catheter) 2450 / 2450 Indwelling Urethral Catheter 2450 / 2450 Other: Post Void Residual 0 # Voids 13 Date of Last Bowel Movement 09/07/18 09/07/18 09/08/18 - Constitutional no acute distress - Routine HEENT Exam Head: Present: normocephalic, atraumatic Eye: Present: EOMI ENT: Present: mucous membranes moist - Routine Neck Exam Present: supple, full ROM - Routine Respiratory Exam Present: CTA bilaterally - Routine Cardiovascular Exam Present: RRR, S1, S2 - Routine Abdominal Exam Present: soft, normoactive bowel sounds - Routine Extremities Exam Present: pulses intact Comments: calves soft NT B. No palpable cords. - Routine Skin Exam Present: intact - Routine Neurological Exam Present: alert, oriented X3 - Detailed Neurological Exam: Coma Scale Verbal Response: Oriented - Routine Psychiatric Exam Present: normal affect, normal thought process - Urinary Catheter Management Indwelling Urethral Catheter Cath placed during this visit: yes, but has since been removed by the nurse Urethral indwelling: No Reason for continuing: Decision to DC catheter Insertion date: 09/04/18 Insertion time: 21:35 Removal date: 09/07/18 Removal time: 15:30 Results - Labs CBC & Chem 7: 09/08/18 04:50 09/08/18 04:50 Laboratory Results - last 24 hr 09/07/18 09/07/18 09/07/18 11:00 12:50 17:51 WBC RBC Hgb Hct MCV MCH MCHC RDW Plt Count MPV Prelim Diff (Auto) Neut % (Auto) Lymph % (Auto) [place] % (Auto) Eos % (Auto) Baso % (Auto) Neut # (Auto) Lymph # (Auto) [place] # (Auto) Eos # (Auto) Baso # (Auto) WBC Differential Seg Neuts % (Manual) Lymphocytes % (Manual) Monocytes % (Manual) Eosinophils % (Manual) Myelocytes % (Man) Abs Neuts (Manual) Differential Comment Platelet Estimate Platelet Morphology Ovalocytes Sodium Potassium Chloride Carbon Dioxide Anion Gap BUN Creatinine Estimated GFR POC Glucose 152 H 143 H Random Glucose Calcium Phosphorus Magnesium Troponin I Less than 0.02 L 09/07/18 09/08/18 09/08/18 21:03 04:50 04:50 WBC 6.0 RBC 4.06 L Hgb 12.4 L Hct 37.1 L MCV 91.2 MCH 30.4 MCHC 33.3 RDW 16.5 Plt Count 78 L MPV 9.0 Prelim Diff (Auto) Slide review pending Neut % (Auto) 89.3 H Lymph % (Auto) 1.8 L [place] % (Auto) 8.5 H Eos % (Auto) 0.3 Baso % (Auto) 0.1 Neut # (Auto) 5.4 Lymph # (Auto) 0.1 L [place] # (Auto) 0.5 Eos # (Auto) 0.0 Baso # (Auto) 0.0 WBC Differential Manual diff final Seg Neuts % (Manual) 84 H Lymphocytes % (Manual) 6 L Monocytes % (Manual) 7 Eosinophils % (Manual) 1 Myelocytes % (Man) 2 H Abs Neuts (Manual) 5.2 Differential Comment . Platelet Estimate Low L Platelet Morphology Normal Ovalocytes 1+ H Sodium 138 Potassium 4.5 Chloride 106 Carbon Dioxide 20.0 L Anion Gap 12 BUN 88 H Creatinine 4.35 H Estimated GFR 14 L POC Glucose 143 H Random Glucose 143 H Calcium 9.0 Phosphorus 4.0 Magnesium 1.9 Troponin I 09/08/18 08:52 WBC RBC Hgb Hct MCV MCH MCHC RDW Plt Count MPV Prelim Diff (Auto) Neut % (Auto) Lymph % (Auto) [place] % (Auto) Eos % (Auto) Baso % (Auto) Neut # (Auto) Lymph # (Auto) [place] # (Auto) Eos # (Auto) Baso # (Auto) WBC Differential Seg Neuts % (Manual) Lymphocytes % (Manual) Monocytes % (Manual) Eosinophils % (Manual) Myelocytes % (Man) Abs Neuts (Manual) Differential Comment Platelet Estimate Platelet Morphology Ovalocytes Sodium Potassium Chloride Carbon Dioxide Anion Gap BUN Creatinine Estimated GFR POC Glucose 127 H Random Glucose Calcium Phosphorus Magnesium Troponin I Assessment and Plan - Assessment (1) ESRD (end stage renal disease) on dialysis Code(s): N18.6 - End stage renal disease; Z99.2 - Dependence on renal dialysis Status: Acute (2) HTN (hypertension) Code(s): I10 - Essential (primary) hypertension Status: Acute - Plan Mr Greg Gonzalez has ESRD secondary to htn, and is was admitted for donor kidney transplantation. S/P DDKT to left iliac fossa. POD#5 Allograft function: improving. Immunosuppression: Thymo induction; Has had 3 doses of 1.5 mg/kg thymo. Maint: steroids + Cellcept 1000 BID + Tacrolimus 5 mg BID. Patient with good UOP overnight. No clinical c/o at this time. Asymptomatic sinus tach last night. Appreciate cardiology input. Some hypertension. Will start 5 mg po amlodipine. Lucretia po. On renal diet. Good UOP. Hyperkalemia improved. Stop Veltassa. On flomax (help avoid urinary retention). Probable discharge home tomorrow.
[2018-09-08] MEDS: amLODIPine 5 MG Tablet PO SCH (12:43)
--- NOTE | 2018-09-08 13:19 | MB ---
cc: Mike Paredes MD DATE: 09/08/2018 REASON FOR CONSULT: Paroxysmal atrial fibrillation. HISTORY OF PRESENT ILLNESS: The patient is a very pleasant 58-year-old gentleman who is status post renal transplant. The patient was noted to have about 15 minutes of a rapid atrial fibrillation last night for which he was given a beta rachael and has now returned back to sinus rhythm. The patient says he has a history of brief paroxysmal atrial fibrillation which typically happened only when he gets dialysis. In fact, he takes metoprolol prior to dialysis for this reason. He was recently evaluated fully by a strategic planning specialist out of town in anticipation of his renal transplantation. The patient reports a normal stress test and otherwise normal cardiac workup. He has never been on anticoagulation. PAST MEDICAL HISTORY: 1. End-stage renal disease, now status post renal transplantation. 2. Brief paroxysmal atrial fibrillation, typically with dialysis. 3. Hypertension. CURRENT MEDICATIONS: 1. Lipitor 40 mg at bedtime. 2. Solu-Cortef. 3. Toprol-XL 50 mg daily. 4. NovoLog. 5. CellCept. 6. Mycostatin. ALLERGIES: PIPERACILLIN AND TAZOBACTAM. PHYSICAL EXAMINATION: VITAL SIGNS: Afebrile, pulse 69, respiratory rate 18, BP 172/84, saturating 99% on room air. GENERAL: Pleasant gentleman in no distress. NECK: No JVD. LUNGS: Clear to auscultation bilaterally. CARDIOVASCULAR: Regular rate and rhythm. No murmurs appreciated though radiated sounds from a fistula are appreciated. ABDOMEN: Benign. EXTREMITIES: No edema. LABORATORY DATA: White count 6.0, hematocrit 37.1, platelets 78. INR is 1.0. Sodium 138, potassium 4.5, chloride 106, bicarbonate 20, BUN 88, creatinine 4.35, glucose 127. EKG shows sinus rhythm without any acute ST or T-wave changes. Telemetry from last night shows just under an hour of the rapid atrial fibrillation, mostly in the 130s. ASSESSMENT AND PLAN: Paroxysmal atrial fibrillation. The patient has a history of paroxysmal atrial fibrillation and had an episode last night. Given this is a known diagnosis for the patient, and he had a full cardiac workup prior to his transplantation, I do not feel he requires any additional workup at this time. He is already getting his Toprol, and I will defer further blood pressure management to his renal team. I did suggest the patient might be a candidate for anticoagulation once his surgical issues have resolved. I did suggest the possibility of a long-term monitor, potentially a loop recorder, once the patient is back at home in order to monitor his overall atrial fibrillation burden. The patient agrees to discuss this with his strategic planning specialist when he gets home. I will sign off at this time. From my standpoint, he could be discharged home once appropriate by the renal team. Thank you again for the opportunity to participate in this patient's care. MD SHEA Abdi/nayely , 10:49 AM , 10:56 AM
--- NOTE | 2018-09-08 15:14 | ECG ---
Date Performed: 09/07/2018 Time Performed: 10:38:32 PTAGE: 58 years EKG: Sinus rhythm Normal ECG PREVIOUS TRACING : 09/06/2018 11.31 DOCTOR: Garrett Garcia Interpretating Date/Time 09/08/2018 15:13:33
[2018-09-09] MEDS: Mycophenolate Mofetil 250 MG Capsule PO SCH (06:01)
[2018-09-09 06:54] LABS: Baso % (Auto) 0.1 % (0.0-2.0); Eos # (Auto) 0.1 th/mm3 (0.0-0.4); Hemoglobin 12.7 gm/dL (13.0-17.0); Lymph # (Auto) 0.3 th/mm3 (1.0-4.8); Lymph % (Auto) 4.1 % (9.0-44.0); Mean Corpuscular HGB Conc 33.3 % (32.0-36.0); Mean Corpuscular Hemoglobin 30.9 pg (27.0-34.0); Mean Corpuscular Volume 92.8 fL (80.0-100.0); Mean Platelet Volume 8.5 fL (7.0-11.0); Mono # (Auto) 0.8 th/mm3 (0.0-0.9); Mono % (Auto) 12.2 % (0.0-8.0); Neut # (Auto) 5.7 th/mm3 (1.8-7.7); Neut % (Auto) 82.6 % (16.0-70.0); Platelet Count 84 th/mm3 (150-450); Red Cell Distribution Width 16.7 % (11.6-17.2); White Blood Count 6.9 th/mm3 (4.0-11.0)
[2018-09-09 07:01] LABS: Calcium 9.1 mg/dL (8.5-10.1); Carbon Dioxide 19.2 meq/L (21.0-32.0); Magnesium 1.9 mg/dL (1.5-2.5); Phosphorus 2.9 mg/dL (2.5-4.9); Potassium 4.5 meq/L (3.5-5.1)
--- NOTE | 2018-09-09 08:52 | P.PNNP ---
Subjective Interval history: Patient has done well and has no complaints blood pressure was high and amlodipine was added, he received Solu-Medrol yesterday, will start prednisone today. He states he has excellent urine output. Physical Exam Vital signs: Vital Signs 09/08/18 09:00 09/08/18 10:00 09/08/18 11:00 Temperature 97.8 F Pulse Rate 69 82 72 Respiratory Rate 18 Blood Pressure 151/78 H Pulse Oximetry 99 09/08/18 12:00 09/08/18 13:00 09/08/18 14:00 Temperature Pulse Rate 71 69 72 Respiratory Rate Blood Pressure Pulse Oximetry 09/08/18 15:00 09/08/18 16:00 09/08/18 17:00 Temperature 97.8 F Pulse Rate 73 88 71 Respiratory Rate 18 Blood Pressure 152/82 H Pulse Oximetry 97 09/08/18 18:00 09/08/18 19:00 09/08/18 20:00 Temperature 98.5 F Pulse Rate 74 74 70 Respiratory Rate 12 Blood Pressure 155/83 H Pulse Oximetry 97 09/08/18 21:00 09/08/18 22:00 09/08/18 23:00 Temperature 97.6 F Pulse Rate 72 76 68 Respiratory Rate 14 Blood Pressure 173/88 H Pulse Oximetry 97 09/09/18 00:00 09/09/18 00:30 09/09/18 01:00 Temperature Pulse Rate 68 70 Respiratory Rate Blood Pressure 163/87 H Pulse Oximetry 09/09/18 02:00 09/09/18 03:00 09/09/18 04:00 Temperature 97.4 F L Pulse Rate 72 77 74 Respiratory Rate 14 Blood Pressure 150/89 H Pulse Oximetry 97 09/09/18 05:00 09/09/18 06:00 Temperature Pulse Rate 68 68 Respiratory Rate Blood Pressure Pulse Oximetry Intake & Output 09/08/18 09/09/18 09/09/18 18:59 06:59 18:59 Intake Total 480 / 480 1200 / 1200 Output Total 850 / 850 1775 / 1775 Balance -370 / -370 -575 / -575 Weight 102.6 kg Intake: Oral 480 / 480 1200 / 1200 Output: Urine 850 / 850 1775 / 1775 Other: Date of Last Bowel Movement 09/08/18 09/09/18 # Bowel Movements 1 Narrative: GENERAL: Very pleasant 58 yo male, well nourished well developed patient , in nad. CARDIOVASCULAR: Regular rate and rhythm. RESPIRATORY: No accessory muscle use. Clear to auscultation. Breath sounds equal bilaterally. GASTROINTESTINAL: Abdomen soft, nondistended. Left side dressing at the surgical site CDI. MUSCULOSKELETAL: AV Fistula left arm , + bruit. Extremities without clubbing, cyanosis, or edema. No obvious deformities. NEUROLOGICAL: Awake and alert. No obvious cranial nerve deficits. Motor grossly within normal limits. Five out of 5 muscle strength in the arms and legs. Normal speech. PSYCHIATRIC: Appropriate mood and affect; insight and judgment normal. - Urinary Catheter Management Indwelling Urethral Catheter Cath placed during this visit: yes, but has since been removed by the nurse Urethral indwelling: No Reason for continuing: Decision to DC catheter Insertion date: 09/04/18 Insertion time: 21:35 Removal date: 09/07/18 Removal time: 15:30 Assessment and Plan - Assessment (1) ESRD (end stage renal disease) on dialysis Code(s): N18.6 - End stage renal disease; Z99.2 - Dependence on renal dialysis Status: Acute (2) HTN (hypertension) Code(s): I10 - Essential (primary) hypertension Status: Acute - Plan Patient has kidney transplant doing well creatinine declined UOP increased K is now normal. Creatinine continue to improve and now 3.04 K and Po4 normal. overall improved Encourage oral fluid intake. BG 111-157 no insulin used will follow. on Tacrolimus 5 mg bid/MMF 1 gm bid follow Tacrolimus level is pending now. Follow the urine out put and BMP. Cardiology saw him over the weekend for sinus tachycardia, follow-up with neuro psych sales specialist He is going to place him on prednisone Amlodipine dose increased to 10 mg daily Continue with other medications discussed with Dr. Staley Will OK to discharge from hospital Follow-up at the clinic on Sunday
--- NOTE | 2018-09-09 08:55 | P.PNTS ---
Subjective Interval history: No new c/o. Lucretia po. Pain well controlled. + flatus/ BM Physical Exam Vital signs: Vital Signs 09/08/18 09:00 09/08/18 10:00 09/08/18 11:00 Temperature 97.8 F Pulse Rate 69 82 72 Respiratory Rate 18 Blood Pressure 151/78 H Pulse Oximetry 99 09/08/18 12:00 09/08/18 13:00 09/08/18 14:00 Temperature Pulse Rate 71 69 72 Respiratory Rate Blood Pressure Pulse Oximetry 09/08/18 15:00 09/08/18 16:00 09/08/18 17:00 Temperature 97.8 F Pulse Rate 73 88 71 Respiratory Rate 18 Blood Pressure 152/82 H Pulse Oximetry 97 09/08/18 18:00 09/08/18 19:00 09/08/18 20:00 Temperature 98.5 F Pulse Rate 74 74 70 Respiratory Rate 12 Blood Pressure 155/83 H Pulse Oximetry 97 09/08/18 21:00 09/08/18 22:00 09/08/18 23:00 Temperature 97.6 F Pulse Rate 72 76 68 Respiratory Rate 14 Blood Pressure 173/88 H Pulse Oximetry 97 09/09/18 00:00 09/09/18 00:30 09/09/18 01:00 Temperature Pulse Rate 68 70 Respiratory Rate Blood Pressure 163/87 H Pulse Oximetry 09/09/18 02:00 09/09/18 03:00 09/09/18 04:00 Temperature 97.4 F L Pulse Rate 72 77 74 Respiratory Rate 14 Blood Pressure 150/89 H Pulse Oximetry 97 09/09/18 05:00 09/09/18 06:00 Temperature Pulse Rate 68 68 Respiratory Rate Blood Pressure Pulse Oximetry Intake & Output 09/08/18 09/09/18 09/09/18 18:59 06:59 18:59 Intake Total 480 / 480 1200 / 1200 Output Total 850 / 850 1775 / 1775 Balance -370 / -370 -575 / -575 Weight 102.6 kg Intake: Oral 480 / 480 1200 / 1200 Output: Urine 850 / 850 1775 / 1775 Other: Date of Last Bowel Movement 09/08/18 09/09/18 # Bowel Movements 1 - Constitutional no acute distress - Routine HEENT Exam Head: Present: normocephalic, atraumatic ENT: Present: mucous membranes moist - Routine Neck Exam Present: supple - Routine Respiratory Exam Present: CTA bilaterally - Routine Cardiovascular Exam Present: RRR, S1, S2 - Routine Abdominal Exam Present: soft, normoactive bowel sounds - Routine Extremities Exam Present: pulses intact Comments: Calves soft, NT B. No palpable cords. - Routine Skin Exam Present: intact - Routine Neurological Exam Present: alert, oriented X3 - Detailed Neurological Exam: Coma Scale Eye Opening: Spontaneous Verbal Response: Oriented - Routine Psychiatric Exam Present: normal affect, normal thought process - Urinary Catheter Management Indwelling Urethral Catheter Cath placed during this visit: yes, but has since been removed by the nurse Urethral indwelling: No Reason for continuing: Decision to DC catheter Insertion date: 09/04/18 Insertion time: 21:35 Removal date: 09/07/18 Removal time: 15:30 Results - Labs CBC & Chem 7: 09/09/18 06:00 09/09/18 06:00 Laboratory Results - last 24 hr 09/08/18 09/08/18 09/08/18 04:50 04:50 08:52 WBC RBC Hgb Hct MCV MCH MCHC RDW Plt Count MPV Prelim Diff (Auto) Neut % (Auto) Lymph % (Auto) [place] % (Auto) Eos % (Auto) Baso % (Auto) Neut # (Auto) Lymph # (Auto) [place] # (Auto) Eos # (Auto) Baso # (Auto) WBC Differential Manual diff final Seg Neuts % (Manual) 84 H Lymphocytes % (Manual) 6 L Monocytes % (Manual) 7 Eosinophils % (Manual) 1 Myelocytes % (Man) 2 H Abs Neuts (Manual) 5.2 Differential Comment Platelet Estimate Low L Platelet Morphology Normal Ovalocytes 1+ H Sodium Potassium Chloride Carbon Dioxide Anion Gap BUN Creatinine Estimated GFR POC Glucose 127 H Random Glucose Calcium Phosphorus Magnesium Tacrolimus 6.8 09/08/18 09/08/18 09/08/18 12:46 17:39 21:03 WBC RBC Hgb Hct MCV MCH MCHC RDW Plt Count MPV Prelim Diff (Auto) Neut % (Auto) Lymph % (Auto) [place] % (Auto) Eos % (Auto) Baso % (Auto) Neut # (Auto) Lymph # (Auto) [place] # (Auto) Eos # (Auto) Baso # (Auto) WBC Differential Seg Neuts % (Manual) Lymphocytes % (Manual) Monocytes % (Manual) Eosinophils % (Manual) Myelocytes % (Man) Abs Neuts (Manual) Differential Comment Platelet Estimate Platelet Morphology Ovalocytes Sodium Potassium Chloride Carbon Dioxide Anion Gap BUN Creatinine Estimated GFR POC Glucose 157 H 157 H 111 H Random Glucose Calcium Phosphorus Magnesium Tacrolimus 09/09/18 09/09/18 06:00 06:00 WBC 6.9 RBC 4.10 L Hgb 12.7 L Hct 38.0 L MCV 92.8 MCH 30.9 MCHC 33.3 RDW 16.7 Plt Count 84 L MPV 8.5 Prelim Diff (Auto) Slide review pending Neut % (Auto) 82.6 H Lymph % (Auto) 4.1 L [place] % (Auto) 12.2 H Eos % (Auto) 1.0 Baso % (Auto) 0.1 Neut # (Auto) 5.7 Lymph # (Auto) 0.3 L [place] # (Auto) 0.8 Eos # (Auto) 0.1 Baso # (Auto) 0.0 WBC Differential Seg Neuts % (Manual) Lymphocytes % (Manual) Monocytes % (Manual) Eosinophils % (Manual) Myelocytes % (Man) Abs Neuts (Manual) Differential Comment . Platelet Estimate Platelet Morphology Ovalocytes Sodium 142 Potassium 4.5 Chloride 111 H Carbon Dioxide 19.2 L Anion Gap 12 BUN 80 H Creatinine 3.04 H Estimated GFR 21 L POC Glucose Random Glucose 102 Calcium 9.1 Phosphorus 2.9 D Magnesium 1.9 Tacrolimus Assessment and Plan - Assessment (1) ESRD (end stage renal disease) on dialysis Code(s): N18.6 - End stage renal disease; Z99.2 - Dependence on renal dialysis Status: Acute (2) HTN (hypertension) Code(s): I10 - Essential (primary) hypertension Status: Acute - Plan Mr Greg Gonzalez has ESRD secondary to htn, and is was admitted for donor kidney transplantation. S/P DDKT to left iliac fossa. POD#5 Allograft function: improving. Immunosuppression: Thymo induction; Has had 3 doses of 1.5 mg/kg thymo. Maint: steroids + Cellcept 1000 BID + Tacrolimus 5 mg BID. Patient with good UOP. No clinical c/o at this time. Appreciate cardiology input. Continued hypertension. Increase amlodipine to 10 mg. Lucretia po. Change to regular diet. Hyperkalemia resolved. On flomax (help avoid urinary retention). Discharge home today.
[2018-09-09] MEDS: Nystatin Liq 500,000 UNIT/5 ML UDC SWISH-SWAL SCH (08:59)
[2018-09-09] MEDS: predniSONE 20 MG Tablet PO SCH (08:59)
[2018-09-09] MEDS: amLODIPine 5 MG Tablet PO SCH (08:59)
[2018-09-09] MEDS: Docusate Sodium 100 MG Capsule PO SCH (08:59)
[2018-09-09] MEDS: Pantoprazole Inj 40 MG Vial IV.PUSH SCH (08:59)
--- NOTE | 2018-09-09 09:06 | DRUGHERB ---
Patient: Greg Gonzalez. = 1960 / [id number] Post-op Day#6 Reviewed patient medication list and recommended the following: -Continue CellCept, Tacrolimus and Prednisone. -Continue Valcyte, Bactrim and Nystatin -Blood pressure continue to be elevated 150s/80s, might consider increasing Norvasc to 10mg daily. -Hgb and Platelets stable -Patient Potassium level stabilized, might discontinue Veltassa -Phosphorous level trending down, might consider Kphos 500mg bid if continue to trend down. -Anticipated discharge today with a follow up in clinic on Sunday. Rachid Pillai, AngeliqueD
--- NOTE | 2018-09-09 09:08 | P.PNIM ---
Subjective Interval history: f/u; s/p kidney transplant/ paroxysmal a-fib in no acute distress. overall doing fine with no new complaints. Physical Exam Vital signs: Vital Signs 09/08/18 10:00 09/08/18 11:00 09/08/18 12:00 Temperature 97.8 F Pulse Rate 82 72 71 Respiratory Rate 18 Blood Pressure 151/78 H Pulse Oximetry 99 09/08/18 13:00 09/08/18 14:00 09/08/18 15:00 Temperature 97.8 F Pulse Rate 69 72 73 Respiratory Rate 18 Blood Pressure 152/82 H Pulse Oximetry 97 09/08/18 16:00 09/08/18 17:00 09/08/18 18:00 Temperature Pulse Rate 88 71 74 Respiratory Rate Blood Pressure Pulse Oximetry 09/08/18 19:00 09/08/18 20:00 09/08/18 21:00 Temperature 98.5 F Pulse Rate 74 70 72 Respiratory Rate 12 Blood Pressure 155/83 H Pulse Oximetry 97 09/08/18 22:00 09/08/18 23:00 09/09/18 00:00 Temperature 97.6 F Pulse Rate 76 68 68 Respiratory Rate 14 Blood Pressure 173/88 H Pulse Oximetry 97 09/09/18 00:30 09/09/18 01:00 09/09/18 02:00 Temperature Pulse Rate 70 72 Respiratory Rate Blood Pressure 163/87 H Pulse Oximetry 09/09/18 03:00 09/09/18 04:00 09/09/18 05:00 Temperature 97.4 F L Pulse Rate 77 74 68 Respiratory Rate 14 Blood Pressure 150/89 H Pulse Oximetry 97 09/09/18 06:00 Temperature Pulse Rate 68 Respiratory Rate Blood Pressure Pulse Oximetry Intake & Output 09/08/18 09/09/18 09/09/18 18:59 06:59 18:59 Intake Total 480 / 480 1200 / 1200 Output Total 850 / 850 1775 / 1775 Balance -370 / -370 -575 / -575 Weight 102.6 kg Intake: Oral 480 / 480 1200 / 1200 Output: Urine 850 / 850 1775 / 1775 Other: Date of Last Bowel Movement 09/08/18 09/09/18 # Bowel Movements 1 - Constitutional no acute distress - Routine Respiratory Exam Present: CTA bilaterally - Routine Cardiovascular Exam Present: RRR - Routine Abdominal Exam Present: soft - Routine Extremities Exam Comments: no pedal edema. - Routine Neurological Exam Present: alert, oriented X3 - Urinary Catheter Management Indwelling Urethral Catheter Cath placed during this visit: yes, but has since been removed by the nurse Urethral indwelling: No Reason for continuing: Decision to DC catheter Insertion date: 09/04/18 Insertion time: 21:35 Removal date: 09/07/18 Removal time: 15:30 Results - Labs CBC & Chem 7: 09/09/18 06:00 09/09/18 06:00 Laboratory Results - last 24 hr 09/08/18 09/08/18 09/08/18 04:50 04:50 12:46 WBC RBC Hgb Hct MCV MCH MCHC RDW Plt Count MPV Prelim Diff (Auto) Neut % (Auto) Lymph % (Auto) [place] % (Auto) Eos % (Auto) Baso % (Auto) Neut # (Auto) Lymph # (Auto) [place] # (Auto) Eos # (Auto) Baso # (Auto) WBC Differential Manual diff final Seg Neuts % (Manual) 84 H Lymphocytes % (Manual) 6 L Monocytes % (Manual) 7 Eosinophils % (Manual) 1 Myelocytes % (Man) 2 H Abs Neuts (Manual) 5.2 Differential Comment Platelet Estimate Low L Platelet Morphology Normal Ovalocytes 1+ H Sodium Potassium Chloride Carbon Dioxide Anion Gap BUN Creatinine Estimated GFR POC Glucose 157 H Random Glucose Calcium Phosphorus Magnesium Tacrolimus 6.8 09/08/18 09/08/18 09/09/18 17:39 21:03 06:00 WBC RBC Hgb Hct MCV MCH MCHC RDW Plt Count MPV Prelim Diff (Auto) Neut % (Auto) Lymph % (Auto) [place] % (Auto) Eos % (Auto) Baso % (Auto) Neut # (Auto) Lymph # (Auto) [place] # (Auto) Eos # (Auto) Baso # (Auto) WBC Differential Seg Neuts % (Manual) Lymphocytes % (Manual) Monocytes % (Manual) Eosinophils % (Manual) Myelocytes % (Man) Abs Neuts (Manual) Differential Comment Platelet Estimate Platelet Morphology Ovalocytes Sodium 142 Potassium 4.5 Chloride 111 H Carbon Dioxide 19.2 L Anion Gap 12 BUN 80 H Creatinine 3.04 H Estimated GFR 21 L POC Glucose 157 H 111 H Random Glucose 102 Calcium 9.1 Phosphorus 2.9 D Magnesium 1.9 Tacrolimus 09/09/18 06:00 WBC 6.9 RBC 4.10 L Hgb 12.7 L Hct 38.0 L MCV 92.8 MCH 30.9 MCHC 33.3 RDW 16.7 Plt Count 84 L MPV 8.5 Prelim Diff (Auto) Slide review pending Neut % (Auto) 82.6 H Lymph % (Auto) 4.1 L [place] % (Auto) 12.2 H Eos % (Auto) 1.0 Baso % (Auto) 0.1 Neut # (Auto) 5.7 Lymph # (Auto) 0.3 L [place] # (Auto) 0.8 Eos # (Auto) 0.1 Baso # (Auto) 0.0 WBC Differential Seg Neuts % (Manual) Lymphocytes % (Manual) Monocytes % (Manual) Eosinophils % (Manual) Myelocytes % (Man) Abs Neuts (Manual) Differential Comment . Platelet Estimate Platelet Morphology Ovalocytes Sodium Potassium Chloride Carbon Dioxide Anion Gap BUN Creatinine Estimated GFR POC Glucose Random Glucose Calcium Phosphorus Magnesium Tacrolimus Assessment and Plan - Plan A/P S/P kidney transplant Hyperkalemia- resolved H/H fairly stable On Tacrolimus/Cellcept. cleared by Nephrology and transplant surgery for discharge. episodes of tachycardia/ history of a-fib cardiology consult appreciated; f/u as outpatient. Hypertension continue Metoprolol and monitor. DVT ppx per surgeon Discharge Planning: dc home today with f/u by pcp, nephrology, transplant surgery and cardiology. see med list. d/w the patient, RN and .
--- NOTE | 2018-09-09 09:12 | DRUGHERB ---
Patient: Greg Gonzalez. = 1960 / [id number] Pre-discharge Education: Patient has been educated on his medications and do not have questions to the pharmacist. Rachid Pillai, PharmD
--- NOTE | 2018-09-09 09:24 | P.DIET ---
Nutritional Evaluation Type of nutrition evaluation: follow-up Screening comments: Nutrition Education follow-up and discharge planning Subjective Subjective Comments: Patient states he feels fine, no problems with eating. Objective - Diagnosis ESRD - Objective [place] body weight: 81 kg % IBW: 127 Body Weight Used for Calculations: IBW Energy Needs - Lower Range (kCal/kg): 28 Energy Needs - Upper Range (kCal/kg): 33 Lower Limit kCal/kg (kCals): 2,268 Upper Limit kCal/kg (kCals): 2,673 Lower Limit Protein Factor (Grams per Kg): 1.2 Upper Limit Protein Factor (Grams per Kg): 1.5 Lower Protein Needs (Protein): 97 Upper Protein Needs (Protein): 122 Estimated Fluid Needs (ml): 2,000 Dietitian Reviewed in Medical Record: Current diet, Curent medications, Intake & Output, Labs Diet Order: regular Oral Diet Intake Amount: Good 75-90% Objective Comments: Labs of note: K+ 4.3, Cr 3.04, Phosphorus 2.9 24-hr UOP 2625mls, +1BM Assessment Assessment: Pt seen today with the transplant team s/p kidney transplant 09/04. Pt's UOP is excellent, K+ now WNL and phosphorus is at 2.9. Reviewed nutrition education after kidney transplant with Greg Gonzalez and his . I stressed the importance of drinking adequate water, 2.5-3L/day. Reviewed high phosphorus foods to include in his diet. Reviewed that medications may elevate cholesterol and triglycerides. I discussed the monitoring of glucose while on steroids and the possibility of prograf-induced diabetes. I also discussed the possibility of weight gain related to increased appetite and medications. Reviewed food safety guidelines and the importance of reducing his risk of food borne illness. Stressed the importance of maintaining an active lifestyle once patient is cleared to do so. I answered all questions from both patient and . Both appear very receptive to following the nutrition guidelines and I expect excellent compliance. This is patients second kidney transplant so both he and his are very familiar with nutrition post-transplant. Patient to be discharged today, will be followed in the outpatient clinic. Recommendations: Patient to be discharged today and will be followed in the outpatient clinic.
[2018-09-09] MEDS ORDERED: amLODIPine 5 MG Tablet PO ONE (09:25)
[2018-09-09 10:03] VITALS: BP 179/91; PULSE 73; RESP 17; TEMP 97.7; O2SAT 99
[2018-09-09 10:13] LABS: Lymphocytes 4 % (9-44); Monocytes 8 % (0-8); Myelocytes 4 % (0-0)
[2018-09-09 10:14] LABS: Ovalocytes 1+
--- NOTE | 2018-09-09 10:18 | P.DS ---
Date of admission: 09/03/18 12:08 Primary care physician: UNKNOWN Brief History from admission: Patient is a very pleasant 58-year-old white male with history of end-stage renal disease due to hypertension, he received kidney transplant in December 1999 which failed in November 2012, he is on HD Sunday and Sunday. Had dialysis for 2 hours in the morning today prior to admission. He is here for kidney transplant. Dr Staley surgeon is following. He denies any chest pain, shortness of breath, palpitations. Reports minimal cough and postnasal drip which she attributes to seasonal allergies, he denies any fever or chills. No n/ v/d/c. DS: Medications - Discharge Medications Prescriptions: amlodipine [Norvasc] 10 mg PO DAILY #30 tab metoprolol succinate 50 mg PO DAILY #30 tab oxycodone-acetaminophen 1 tab PO Q4H PRN #30 tab PRN Reason: Abdominal Pain tamsulosin 0.4 mg PO DAILY #30 cap DS: Summary Hospital Course: S/P kidney transplant Hyperkalemia- resolved H/H fairly stable On Tacrolimus/Cellcept. cleared by Nephrology and transplant surgery for discharge. episodes of tachycardia/ history of a-fib cardiology consult appreciated; f/u as outpatient. Hypertension continue Metoprolol and monitor. DVT ppx per surgeon - Time Spent with Patient Total time spent providing and/or coordinating discharge services: Less than 30 minutes - Quality: VTE Deep Vein Thrombosis/Pulmonary Embolism Present on Admission: No Exam Vital signs: Vital Signs 09/08/18 11:00 09/08/18 12:00 09/08/18 13:00 Temperature 97.8 F Pulse Rate 72 71 69 Respiratory Rate 18 Blood Pressure 151/78 H Pulse Oximetry 99 09/08/18 14:00 09/08/18 15:00 09/08/18 16:00 Temperature 97.8 F Pulse Rate 72 73 88 Respiratory Rate 18 Blood Pressure 152/82 H Pulse Oximetry 97 09/08/18 17:00 09/08/18 18:00 09/08/18 19:00 Temperature 98.5 F Pulse Rate 71 74 74 Respiratory Rate 12 Blood Pressure 155/83 H Pulse Oximetry 97 09/08/18 20:00 09/08/18 21:00 09/08/18 22:00 Temperature Pulse Rate 70 72 76 Respiratory Rate Blood Pressure Pulse Oximetry 09/08/18 23:00 09/09/18 00:00 09/09/18 00:30 Temperature 97.6 F Pulse Rate 68 68 Respiratory Rate 14 Blood Pressure 173/88 H 163/87 H Pulse Oximetry 97 09/09/18 01:00 09/09/18 02:00 09/09/18 03:00 Temperature 97.4 F L Pulse Rate 70 72 77 Respiratory Rate 14 Blood Pressure 150/89 H Pulse Oximetry 97 09/09/18 04:00 09/09/18 05:00 09/09/18 06:00 Temperature Pulse Rate 74 68 68 Respiratory Rate Blood Pressure Pulse Oximetry 09/09/18 07:00 Temperature 97.7 F Pulse Rate 68 Respiratory Rate 17 Blood Pressure 179/91 H Pulse Oximetry 99 Intake & Output 09/08/18 09/09/18 09/09/18 18:59 06:59 18:59 Intake Total 480 / 480 1200 / 1200 Output Total 850 / 850 1775 / 1775 Balance -370 / -370 -575 / -575 Weight 102.6 kg Intake: Oral 480 / 480 1200 / 1200 Output: Urine 850 / 850 1775 / 1775 Other: Date of Last Bowel Movement 09/08/18 09/09/18 # Bowel Movements 1 - Constitutional no acute distress - Routine Respiratory Exam Present: CTA bilaterally - Routine Cardiovascular Exam Present: RRR - Routine Abdominal Exam Present: soft - Routine Extremities Exam Comments: no pedal edema. - Routine Neurological Exam Present: alert, oriented X3 Results Procedures completed during hospitalization: kidney transplant. Labs on day of discharge: Labs from last 24 hours 09/09/18 09/09/18 09/09/18 06:00 06:00 06:00 WBC 6.9 RBC 4.10 L Hgb 12.7 L Hct 38.0 L MCV 92.8 MCH 30.9 MCHC 33.3 RDW 16.7 Plt Count 84 L MPV 8.5 Prelim Diff (Auto) Slide review pending Neut % (Auto) 82.6 H Lymph % (Auto) 4.1 L [place] % (Auto) 12.2 H Eos % (Auto) 1.0 Baso % (Auto) 0.1 Neut # (Auto) 5.7 Lymph # (Auto) 0.3 L [place] # (Auto) 0.8 Eos # (Auto) 0.1 Baso # (Auto) 0.0 WBC Differential Manual diff final Seg Neuts % (Manual) 84 H Lymphocytes % (Manual) 4 L Monocytes % (Manual) 8 Myelocytes % (Man) 4 H Abs Neuts (Manual) 6.1 Differential Comment . Platelet Estimate Low L Platelet Morphology Enlarged H Ovalocytes 1+ H Sodium 142 Potassium 4.5 Chloride 111 H Carbon Dioxide 19.2 L Anion Gap 12 BUN 80 H Creatinine 3.04 H Estimated GFR 21 L POC Glucose Random Glucose 102 Calcium 9.1 Phosphorus 2.9 D Magnesium 1.9 Tacrolimus Pending 09/08/18 09/08/18 09/08/18 21:03 17:39 12:46 WBC RBC Hgb Hct MCV MCH MCHC RDW Plt Count MPV Prelim Diff (Auto) Neut % (Auto) Lymph % (Auto) [place] % (Auto) Eos % (Auto) Baso % (Auto) Neut # (Auto) Lymph # (Auto) [place] # (Auto) Eos # (Auto) Baso # (Auto) WBC Differential Seg Neuts % (Manual) Lymphocytes % (Manual) Monocytes % (Manual) Myelocytes % (Man) Abs Neuts (Manual) Differential Comment Platelet Estimate Platelet Morphology Ovalocytes Sodium Potassium Chloride Carbon Dioxide Anion Gap BUN Creatinine Estimated GFR POC Glucose 111 H 157 H 157 H Random Glucose Calcium Phosphorus Magnesium Tacrolimus 09/08/18 04:50 WBC RBC Hgb Hct MCV MCH MCHC RDW Plt Count MPV Prelim Diff (Auto) Neut % (Auto) Lymph % (Auto) [place] % (Auto) Eos % (Auto) Baso % (Auto) Neut # (Auto) Lymph # (Auto) [place] # (Auto) Eos # (Auto) Baso # (Auto) WBC Differential Seg Neuts % (Manual) Lymphocytes % (Manual) Monocytes % (Manual) Myelocytes % (Man) Abs Neuts (Manual) Differential Comment Platelet Estimate Platelet Morphology Ovalocytes Sodium Potassium Chloride Carbon Dioxide Anion Gap BUN Creatinine Estimated GFR POC Glucose Random Glucose Calcium Phosphorus Magnesium Tacrolimus 6.8 - Impressions ITS Impressions Chest X-Ray 09/04/18 01:28 CONCLUSION: Interval placement of central venous line with no pneumothorax. Renal Ultrasound 09/04/18 08:27 CONCLUSION: 1. The velocity in the main renal artery is now 165 cm/s, previously it was 298 cm/s. Small fluid collection medial to the transplant could be a small hematoma. Discharge Plan - Discharge Disposition Patient Disposition: Discharge Home - Discharge Condition Condition: Stable - Discharge Order Discharge Orders: Discharge Order (Routine); Ordered 09/09/18 Ordered By: Rico Yoder - Physicians Team Primary Care Provider: UNKNOWN, Attending Provider: Rico Yoder Other Providers: Morgan Ku MD ; eFrmín Staley MD ; Mike Paredes MD - Rxs /Orders / Referrals /Forms Prescriptions: New amlodipine [Norvasc] 10 mg Tablet 10 mg PO DAILY Qty: 30 RF: 6 calcium carbonate 200 mg calcium (500 mg) Tablet,Chewable 500 mg CHEW BID@09,16 RF: 0 docusate sodium [DOK] 100 mg Capsule 100 mg PO BID RF: 0 metoprolol succinate 50 mg Tablet Extended Release 24 Hr 50 mg PO DAILY Qty: 30 RF: 6 mycophenolate mofetil [CellCept] 250 mg Capsule 1,000 mg PO BID@0600,1800 RF: 0 nystatin 100,000 unit/mL Suspension 5 ml SWISH-SWAL QID RF: 0 oxycodone-acetaminophen 5-325 mg Tablet 1 tab PO Q4H PRN (Reason: Abdominal Pain) Qty: 30 RF: 0 pantoprazole [Protonix] 20 mg Tablet,Delayed Release (Dr/Ec) 40 mg PO DAILY Qty: 90 RF: 6 prednisone [Von] 5 mg Tablet,Delayed Release (Dr/Ec) 10 mg PO DAILY Qty: 90 RF: 6 sulfamethoxazole-trimethoprim 800-160 mg Tablet 1 tab PO MoWeFr RF: 0 tacrolimus [Prograf] 5 mg Capsule 5 mg PO BID@0600,1800 RF: 0 tamsulosin 0.4 mg Capsule 0.4 mg PO DAILY Qty: 30 RF: 0 valganciclovir [Valcyte] 450 mg Tablet 450 mg PO DAILY RF: 0 Continue atorvastatin 40 mg Tablet 40 mg PO DAILY Discontinued lanthanum [Fosrenol] 1,000 mg Tablet,Chewable 1,000 mg PO TIDAC metoprolol succinate [Toprol XL] 100 mg Tablet Extended Release 24 Hr 100 mg PO 3XW Referrals: UNKNOWN, [Primary Care Provider] - See Instructions - Discharge Instructions Patient Printed Instructions: Kidney Transplant (DC)
[2018-09-10] MEDS ORDERED: amLODIPine 10 MG Tablet PO SCH (09:00)
== END 2018-09-09 10:53 | disposition home or self-care (01) ==
LOC: HCVI 12:08 → HCPC 09-04 16:37
PROVIDERS: ADMIT Internal Medicine; ATTEND Internal Medicine

== ENCOUNTER 2018-09-17 10:13 | Inpatient (IN) ==
[2018-09-17] MEDS ORDERED: Sod Chloride 0.9% Inj 1,000 ML IV.CONT SCH (11:00)
--- NOTE | 2018-09-17 11:07 | ED ---
HPI General Chief Complaint: Recheck/Abnormal Lab/Rx Stated Complaint: sent by doctor Time Seen by Provider: 09/17/18 10:44 Source: patient Mode of arrival: ambulatory Limitations: no limitations History of Present Illness HPI narrative: The patient is a 58-year-old male who presents the emergency department for abnormal lab result. cadaver The patient has a history of end-stage renal disease on hemodialysis with cadaver kidney that lasted for approximately 13 years and was followed by kidney failure once again. The patient then had dialysis with a left upper extremity AV fistula until recent cadaver transplant that was performed on September 03, [address] Luís jacobsen at [facility]. The patient is followed by his renal transplant command center analyst, Dr. Ku, who recently performed outpatient labs and noted the patient had hyperkalemia. The patient was started on medications for hyperkalemia, however, it progressed to 6.3 this morning and the patient was sent to the emergency department for workup for possible rejection, hyperkalemia , and admission. The patient is from [facility], does not have a local primary physician. The patient does complain of mild increasing pain near the incisional site, continues to have good urine output. The patient denies any fever, chills, or sweats. The patient is currently on CellCept, Prograf, Valcyte, and prednisone. complaint: Reports abnormal lab Initial visit (ago): day(s) Returns today for: called because of abnormal lab/test Symptoms since prior visit: Reports worsening pain Context: Reports called for abnormal lab result Associated symptoms: Reports abdominal pain Treatments prior to arrival: Reports home treatments Related Data Home Medications Medication Instructions Recorded Confirmed atorvastatin 40 mg PO DAILY 09/03/18 09/17/18 mycophenolate mofetil 500 mg PO DAILY 09/17/18 09/17/18 mycophenolate mofetil [CellCept] 500 mg PO DAILY 09/17/18 09/17/18 sodium bicarbonate 500 mg PO DAILY 09/17/18 09/17/18 Previous Rx's Medication Instructions Recorded amlodipine [Norvasc] 10 mg PO DAILY #30 tab 09/09/18 calcium carbonate 500 mg CHEW BID@09,16 tab 09/09/18 docusate sodium [DOK] 100 mg PO BID cap 09/09/18 metoprolol succinate 50 mg PO DAILY #30 tab 09/09/18 nystatin 5 ml SWISH-SWAL QID ml 09/09/18 pantoprazole [Protonix] 40 mg PO DAILY #90 tab 09/09/18 prednisone [Von] 10 mg PO DAILY #90 tab 09/09/18 sulfamethoxazole-trimethoprim 1 tab PO MoWeFr tab 09/09/18 tacrolimus [Prograf] 5 mg PO BID@0600,1800 cap 09/09/18 tamsulosin 0.4 mg PO DAILY #30 cap 09/09/18 valganciclovir [Valcyte] 450 mg PO DAILY tab 09/09/18 Allergies Allergy/AdvReac Type Severity Reaction Status Date / Time piperacillin Allergy Severe Facial Verified 09/17/18 10:51 Swelling tazobactam Allergy Severe Facial Verified 09/17/18 10:51 Swelling Review of Systems ROS: all other systems reviewed are negative [facility] Social History Social History Substance History: No History of Abuse Second Hand Smoke Exposure: No Smoking Status: Never smoker How Often Do You Have a Drink Containing Alcohol: Never Hx Recent Travel: No Recent Travel in [facility] within the Last 8 Weeks: No Recent Out of Country Travel within the Last 8 Weeks: No Immunization History Tetanus Immunization: <5 Years Exam Narrative Exam Narrative: GENERAL: Awake, alert, pleasant 58-year-old male who appears his stated age and is in no acute respiratory distress. SKIN: Focused skin assessment warm/dry. HEAD: Atraumatic. Normocephalic. EYES: No injection or drainage. ENT: No nasal bleeding or discharge. Mucous membranes pink and moist. NECK: Trachea midline. No JVD. CARDIOVASCULAR: Regular rate and rhythm. No murmur appreciated. RESPIRATORY: No accessory muscle use. Clear to auscultation. Breath sounds equal bilaterally. GASTROINTESTINAL: Abdomen soft, healing incision left lower quadrant with Steri- Strips in place. Minimal tenderness. No guarding rigidity. No drainage from the incision. MUSCULOSKELETAL: No obvious deformities. No clubbing. No cyanosis. No edema. NEUROLOGICAL: Awake and alert. No obvious cranial nerve deficits. Motor grossly within normal limits. Normal speech. PSYCHIATRIC: Appropriate mood and affect; insight and judgment normal. Course Initial Documented Vital Signs Temperature 98.3 F 09/17/18 10:33 Pulse Rate 65 09/17/18 10:33 Respiratory Rate 20 09/17/18 10:33 Blood Pressure 143/73 H 09/17/18 10:33 Pulse Oximetry 100 09/17/18 10:33 Last Documented Vital Signs Temperature 98.3 F 09/17/18 10:33 Pulse Rate 63 09/17/18 13:57 Respiratory Rate 22 09/17/18 13:57 Blood Pressure 156/83 H 09/17/18 13:57 Pulse Oximetry 99 09/17/18 13:57 Critical Care Time Critical Care Time: Yes Total Critical Care Time: 35 Attestation: Aggregate critical care time was 35 minutes. Time to perform other separately billable procedures was not included in the critical care time. My time did not include minutes spent treating any other patients simultaneously or on activities that did not directly contribute to the patient's treatment. The services I provided to this patient were to treat and/or prevent clinically significant deterioration that could result in: Arrhythmia, acute kidney failure , dysrhythmia, sudden . I provided critical care services requiring my management, as noted below: Chart data review, documentation time, medication orders and management, vital sign assessments/reviewing monitor data, ordering and reviewing lab tests, ordering and interpreting/reviewing x-rays and diagnostic studies, care of the patient and discussion of the patient with the admitting physicians. Medical Decision Making MDM Narrative Medical decision making narrative: IV was established, labs are drawn and sent, and the patient was placed on cardiac telemetry monitoring and continuous pulse oximetry monitoring. I discussed the patient with his renal transplant command center analyst, Dr. Jin, who agrees with laboratory evaluation, renal transplant ultrasound with Doppler, and admission. Ultrasound was noted, potassium was elevated at 6.6. The potassium was treated with insulin, D50, Kayexalate, and sodium bicarb. The patient will need a repeat potassium later today and evaluation by his command center analyst. Medical Screen Exam Complete: Yes Emergency Medical Condition: Yes Differential Diagnosis Differential Diagnosis: Differential diagnosis includes rejection, transplant failure, acute kidney injury, acute renal failure, hyperkalemia, dehydration, medication side effect. Lab Data Result diagrams: 09/17/18 11:02 09/17/18 13:53 Lab Results 09/17/18 09/17/18 09/17/18 Range/Units 11:02 12:45 13:53 WBC 16.6 H (4.0-11.0) th/mm3 RBC 4.27 L (4.50-5.90) mil/mm3 Hgb 13.4 (13.0-17.0) gm/dL Hct 40.6 (39.0-51.0) % MCV 94.9 (80.0-100.0) fL MCH 31.4 (27.0-34.0) pg MCHC 33.1 (32.0-36.0) % RDW 17.4 H (11.6-17.2) % Plt Count 209 (150-450) th/mm3 MPV 9.1 (7.0-11.0) fL Prelim Diff (Auto) Slide review pending Neut % (Auto) 93.7 H (16.0-70.0) % Lymph % (Auto) 1.4 L (9.0-44.0) % [place] % (Auto) 3.2 (0.0-8.0) % Eos % (Auto) 1.5 (0.0-4.0) % Baso % (Auto) 0.2 (0.0-2.0) % Neut # (Auto) 15.6 H (1.8-7.7) th/mm3 Lymph # (Auto) 0.2 L (1.0-4.8) th/mm3 [place] # (Auto) 0.5 (0.0-0.9) th/mm3 Eos # (Auto) 0.2 (0.0-0.4) th/mm3 Baso # (Auto) 0.0 (0.0-0.2) th/mm3 WBC Differential Manual diff final Seg Neuts % (Manual) 94 H (16-70) % Band Neuts % (Manual) 2 (0-6) % Monocytes % (Manual) 2 (0-8) % Basophils % (Manual) 1 (0-2) % Metamyelocytes % (Man) 1 (0-1) % Abs Neuts (Manual) 16.1 H (1.8-7.7) th/mm3 Differential Comment . Platelet Estimate Normal (Normal) Platelet Morphology Normal (Normal) RBC Morphology Normal (Normal) Sodium 141 (136-145) meq/L Potassium 6.6 H* (3.5-5.1) meq/L Chloride 119 H (98-107) meq/L Carbon Dioxide 18.6 L (21.0-32.0) meq/L Anion Gap 3 L (5-15) meq/L BUN 43 H (7-18) mg/dL Creatinine 2.17 H (0.60-1.30) mg/dL Estimated GFR 32 L (>89) mL/min Random Glucose 154 H (74-106) mg/dL Calcium 9.8 D (8.5-10.1) mg/dL Phosphorus 2.4 L (2.5-4.9) mg/dL Magnesium 1.6 (1.5-2.5) mg/dL Total Bilirubin 0.4 (0.2-1.0) mg/dL AST 18 (15-37) U/L ALT 43 (12-78) U/L Alkaline Phosphatase 156 H (45-117) U/L Total Protein 6.4 (6.4-8.2) g/dL Albumin 2.7 L (3.4-5.0) g/dL Urine Color Yellow (Yellw/Straw) Urine Clarity Hazy H (Clear) Urine pH 5.0 (5.0-8.5) Ur Specific [place] 1.020 (1.002-1.035) Urine Protein 100 H (Neg-Trace) mg/dL Urine Glucose (UA) 150 H (Negative) mg/dL Urine Ketones Negative (Negative) mg/dL Urine Occult Blood Small H (Negative) Urine Nitrate Negative (Negative) Urine Bilirubin Negative (Negative) Urine Urobilinogen Less than 2 (Less than 2) mg/dL Ur Leukocyte Esterase Negative (Negative) Urine RBC 16 H (0-3) /hpf Urine WBC 7 H (0-5) /hpf Urine Bacteria Rare H (None) /hpf Urine Mucus Few H (Occasional) /lpf Micro UA Comment Culture not ind Ur Microscopic Review Not Reportable Urine Culture Comments Culture not ind Imaging Data Radiologist's impression: Renal Ultrasound 09/17/18 10:51 CONCLUSION: 1. Elevated transplant artery flow velocity 2. Flow and resistive indices in the parenchyma within normal limits 3. No evidence of hydronephrosis Discharge Plan Discharge Disposition Patient Disposition: 30 Still Patient Discharge Condition Condition: Stable Discharge Details Diagnosis: Hyperkalemia, Kidney transplant recipient Physicians Team ED Provider: Chuck Queen Primary Care Provider: UNKNOWN, Attending Provider: Morgan Ku Discharge Interventions Interventions: Vital Signs Last Done: 09/17/18 13:57 Status ED Status: Admitted Patient
[2018-09-17 11:31] LABS: Baso % (Auto) 0.2 % (0.0-2.0); Eos # (Auto) 0.2 th/mm3 (0.0-0.4); Eos % (Auto) 1.5 % (0.0-4.0); Hematocrit 40.6 % (39.0-51.0); Hemoglobin 13.4 gm/dL (13.0-17.0); Lymph # (Auto) 0.2 th/mm3 (1.0-4.8); Lymph % (Auto) 1.4 % (9.0-44.0); Mean Corpuscular HGB Conc 33.1 % (32.0-36.0); Mean Corpuscular Hemoglobin 31.4 pg (27.0-34.0); Mean Corpuscular Volume 94.9 fL (80.0-100.0); Mean Platelet Volume 9.1 fL (7.0-11.0); Mono # (Auto) 0.5 th/mm3 (0.0-0.9); Mono % (Auto) 3.2 % (0.0-8.0); Neut # (Auto) 15.6 th/mm3 (1.8-7.7); Neut % (Auto) 93.7 % (16.0-70.0); Platelet Count 209 th/mm3 (150-450); Red Blood Count 4.27 mil/mm3 (4.50-5.90); Red Cell Distribution Width 17.4 % (11.6-17.2); White Blood Count 16.6 th/mm3 (4.0-11.0)
[2018-09-17 12:09] LABS: Metamyelocytes 1 % (0-1); Monocytes 2 % (0-8)
[2018-09-17 12:10] LABS: Platelet Estimate Normal (Normal); Platelet Morphology Normal (Normal); RBC Morphology Normal (Normal)
--- NOTE | 2018-09-17 12:44 | US ---
EXAM DATE: 09/17/2018 12:03 PM EST AGE/SEX: 58 years / Male INDICATIONS: Increased lab values. CLINICAL DATA: This is the patient's sequela encounter. Patient reports that signs and symptoms have been present for 2 weeks and indicates a pain score of 4/10. MEDICAL/SURGICAL HISTORY: . Diabetic. HTN. Right lower quadrant kidney transplant failure. Skin cancer. . Elbow surgery. Right and left lower quadrant renal transplant. COMPARISON: [facility], RENAL TRANSPLANT W DOP, 09/04/2018. . MEASUREMENTS: Transplant Kidney:__10.4 x 6.6 x 6.4 cm Location:__Left lower quadrant Arcuate Arteries Resistive Index: Upper - 0.6 Mid - 0.7 Lower - 0.6 Main Renal Artery Velocity:__412 cm/sec Main Renal Vein:__Patent External Iliac Artery Velocity:__151 cm/sec External Iliac Vein:__Patent FINDINGS: Transplant Kidney: Normal echotexture and cortical thickness. No mass or hydronephrosis. Minimal per itransplant fluid Urinary Bladder: Slightly distended Other: None. CONCLUSION: 1. Elevated transplant artery flow velocity 2. Flow and resistive indices in the parenchyma within normal limits 3. No evidence of hydronephrosis Electronically signed by: Asael De Los Santos MD 09/17/2018 12:42 PM EST
--- NOTE | 2018-09-17 13:08 | P.CONNP ---
History of Present Illness Service: Nephrology Consult date: 09/17/18 Requesting Physician: Chuck Queen Reason for Consult: Kidney transplant status Primary Care Provider: UNKNOWN Chief Complaint: Abnormal labs History of Present Illness: Patient is a 58-year-old white male with history of second kidney transplant on September 03, he went home and did well, he came back as outpatient yesterday and his creatinine was declining, however his tacrolimus levels were high at 18.3 he was told to hold his afternoon dose of tacrolimus which he did then the levels continue to remain at 13.6 this morning, he did have elevation in creatinine 2.4 baseline creatinine was 1.8, he denies any dysuria or burning he did have pain over the operative site and increases with movement he has no discharge no fevers, His potassium was elevated and was supposed to take Veltassa however he did not receive the medication and came back today with a potassium of 6.7, repeat potassium is pending Review of Systems Constitutional: Denies anorexia, Denies body ache(s), Denies chills, Denies daytime sleepiness, Denies excessive sweating, Denies fatigue, Denies fever(s), Denies headache(s), Denies increased appetite, Denies lack of energy, Denies malaise, Denies night sweats, Denies weakness, Denies weight gain, Denies weight loss, Denies other Eyes: Denies blind spots, Denies blurry vision, Denies bulging eyes, Denies change in vision, Denies double vision, Denies discharge, Denies dry eyes, Denies floaters, Denies irritation, Denies itchy eyes, Denies loss of vision, Denies pain, Denies requires corrective lenses, Denies sensitivity to light, Denies other Ears, Nose, Mouth, and Throat: Denies abnormal hearing, Denies bleeding gums, Denies bad breath, Denies change in voice, Denies dental pain, Denies difficulty swallowing, Denies dizziness, Denies dry mouth, Denies ear discharge , Denies ear pain, Denies facial pain, Denies headache(s), Denies hearing loss, Denies hoarseness, Denies lip swelling, Denies nosebleed, Denies mouth lesions, Denies mouth pain, Denies nasal congestion, Denies nasal discharge, Denies nasal obstruction, Denies nasal trauma, Denies neck lump, Denies neck pain, Denies nose pain, Denies pain with swallowing, Denies poor balance, Denies post nasal drip, Denies ringing in the ears, Denies sinus pain, Denies sinus pressure , Denies sore throat, Denies throat swelling, Denies tongue swelling, Denies other Cardiovascular: Denies chest pain, Denies chest pain at rest, Denies chest pain with activity, Denies excessive sweating, Denies fainting, Denies fast heart rate, Denies foot swelling, Denies generalized swelling, Denies irregular heart rhythm, Denies leg pain with activity, Denies leg sores, Denies leg swelling, Denies lightheadedness, Denies radiating jaw, neck or arm pain, Denies rapid, pounding, or irregular heartbeat, Denies shortness of breath, Denies shortness of breath with activity, Denies shortness of breath when lying down, Denies shortness of breath causing sudden awakening, Denies slow heart rate, Denies other Respiratory: Denies change in phlegm color, Denies chest congestion, Denies cough, Denies coughing up blood, Denies excessive phlegm production, Denies pain on inspiration, Denies pain with cough, Denies shortness of breath, Denies shortness of breath with activity, Denies snoring, Denies stridor, Denies wheezing, Denies other Gastrointestinal: Reports abdominal pain (From the operative site) Genitourinary: Denies blood in semen, Denies blood in urine, Denies decreased urination, Denies difficulty urinating, Denies difficulty with ejaculations, Denies erectile dysfunction, Denies genital lesions, Denies genital pain, Denies painful urination, Denies side pain, Denies frequent nighttime urination , Denies painful ejaculations, Denies penile discharge, Denies scrotal swelling , Denies testicle lump, Denies testicle pain, Denies urinary frequency, Denies urinary hesitancy, Denies urinary incontinence, Denies urinary urgency, Denies other Musculoskeletal: Denies abnormal walking, Denies back pain, Denies body aches, Denies decreased muscle mass, Denies deformity, Denies joint pain, Denies joint swelling, Denies limited joint movement, Denies loss of height, Denies muscle cramps, Denies muscle weakness, Denies neck pain, Denies numbness, Denies radiating pain into limb, Denies stiffness, Denies tingling, Denies other Skin/Breast: Denies acne, Denies bleeding lesions, Denies boil, Denies breast swelling, Denies breast skin changes, Denies breast pain, Denies breast lump, Denies change in breast shape, Denies change in hair, Denies change in skin color, Denies changing lesions, Denies dry skin, Denies excessive hair growth, Denies hair loss, Denies itching, Denies lesions, Denies nail changes, Denies new lesions, Denies nipple discharge, Denies non-healing lesions, Denies redness , Denies sensitivity to light, Denies rash, Denies skin pain, Denies skin ulcer , Denies sores, Denies stretch welsh, Denies unusual bruising, Denies wounds, Denies yellowing of the skin, Denies other Neurologic: Denies abnormal hearing, Denies abnormal movements, Denies abnormal speech, Denies abnormal walking, Denies behavioral changes, Denies burning sensations, Denies confusion, Denies dizziness, Denies fainting, Denies frequent falls, Denies headache(s), Denies lack of coordination, Denies localized weakness, Denies loss of vision, Denies memory loss, Denies numbness, Denies other visual disturbances, Denies radiating pain, Denies restless legs, Denies convulsions, Denies seizure-like activity, Denies sensory deficit, Denies tingling, Denies tingling/numbness/burning sensations, Denies tremor(s), Denies unsteadiness, Denies weakness, Denies other Endocrine: Denies cold intolerance, Denies excessive sweating, Denies flushing, Denies heat intolerance, Denies increased hunger, Denies increased thirst, Denies increased urination, Denies rapid, pounding, or irregular heartbeat, Denies other Hematologic/Lymphatic: Denies easy bleeding, Denies easy bruising, Denies enlarged lymph nodes, Denies other Allergic/Immunologic: Denies GI upset with certain foods, Denies hives, Denies itchy eyes, Denies lip swelling, Denies seasonal runny nose, Denies throat swelling, Denies tongue swelling, Denies wheezing, Denies other PMFSH - History History Provided By: Patient - Medical History Medical History: Medical History (Last Reviewed 09/17/18 @ 13:05 by Morgan Ku MD) AVF (arteriovenous fistula) Deep vein blood clot of left lower extremity Diabetes mellitus HTN (hypertension) Kidney transplant failure Pneumonia Squamous cell carcinoma of skin of left lower extremity - Surgical History Surgical History: Surgical History (Last Reviewed 09/17/18 @ 13:05 by Morgan Ku MD) H/O elbow surgery Transplant recipient - Family History Family History: Family History (Last Reviewed 09/17/18 @ 13:05 by Morgan Ku MD) Mother HTN (hypertension) Kidney failure Sister Kidney failure Uncle Kidney failure - Social History I have reviewed the patient's Social History: Yes - Tobacco History Second Hand Smoke Exposure: No Smoking Status: Never smoker - Alcohol History How Often Do You Have a Drink Containing Alcohol: Never - Substance Use History Substance History: No History of Abuse - Travel History History of Recent Travel: No Recent Travel in the [place] Within the Last 8 Weeks: No Recent Travel Out of the Country Within the Last 8 Weeks: No - Immunization History Tetanus Immunization: <5 Years Medications and Allergies Active Medications: Active Medications Amlodipine Besylate (Norvasc) 10 mg PO DAILY [facility] Atorvastatin Calcium (Lipitor) 40 mg PO DAILY [facility] Sodium Chloride (Ns Inj) 1,000 mls @ 125 mls/hr IV.CONT .Q8H [facility] Stop: 09/17/18 18:59 Metoprolol Succinate (Toprol Xl) 50 mg PO DAILY [facility] Mycophenolate Mofetil (Cellcept) 1,000 mg PO BID@0600,1800 [facility] Nystatin (Mycostatin Liq) 5 ml SWISH-SWAL QID [facility] Pantoprazole Sodium (Protonix) 40 mg PO DAILY [facility] Prednisone (Deltasone) 10 mg PO DAILY [facility] Sodium Bicarbonate (Sodium Bicarbonate) 650 mg PO BID [facility] Sodium Chloride (Ns Flush) 2 ml IV.FLUSH PRN PRN PRN Reason: FLUSH AFTER USING IV ACCESS Tacrolimus (Prograf) 0.5 mg PO BID@0600,1800 [facility] Valganciclovir (Valcyte) 450 mg PO DAILY [facility] Allergies Allergy/AdvReac Type Severity Reaction Status Date / Time piperacillin Allergy Severe Facial Verified 09/17/18 10:51 Swelling tazobactam Allergy Severe Facial Verified 09/17/18 10:51 Swelling Home Medications Medication Instructions Recorded Confirmed Type atorvastatin 40 mg PO DAILY 09/03/18 09/17/18 History mycophenolate mofetil 500 mg PO DAILY 09/17/18 09/17/18 History mycophenolate mofetil [CellCept] 500 mg PO DAILY 09/17/18 09/17/18 History sodium bicarbonate 500 mg PO DAILY 09/17/18 09/17/18 History Exam Vital signs: Vital Signs 09/17/18 10:33 09/17/18 10:47 Temperature 98.3 F Pulse Rate 65 64 Respiratory Rate 20 20 Blood Pressure 143/73 H 183/88 H Pulse Oximetry 100 100 Intake & Output 09/16/18 09/17/18 09/17/18 18:59 06:59 18:59 Weight 97.522 kg Narrative: GENERAL: Well-nourished, well-developed patient. SKIN: Warm and dry. HEAD: Normocephalic. EYES: No scleral icterus. No injection or drainage. NECK: Supple, trachea midline. No JVD or lymphadenopathy. CARDIOVASCULAR: Regular rate and rhythm without murmurs, gallops, or rubs. RESPIRATORY: Breath sounds equal bilaterally. No accessory muscle use. GASTROINTESTINAL: Abdomen soft, non-tender, left-sided lower abdominal incision which is healing no drainage EXTREMITIES: No edema NEUROLOGICAL: Awake, alert, and oriented x 3. Non-focal. Results - Lab Results 09/17/18 11:02 09/17/18 13:53 Assessment and Plan - Assessment (1) Hyperkalemia Code(s): E87.5 - Hyperkalemia Status: Acute (2) HTN (hypertension) Code(s): I10 - Essential (primary) hypertension Status: Acute (3) Kidney transplant recipient Code(s): Z94.0 - Kidney transplant status Status: Acute - Plan His tacrolimus remains elevated at 13.6 I am going to hold the medication for today and recheck levels tomorrow and start at a lower dose, it appears he is a slow metabolizer, combination of tacrolimus toxicity and renal insufficiency may have led to hyperkalemia, he did not receive Veltassa, will treat hyperkalemia and resume his outpatient medication, I will hold Bactrim as this can lead to potassium elevation as well, continue to monitor for improvement if the creatinine remains elevated we may consider kidney biopsy, ultrasound showed increase velocity across renal artery, Dr. Fermín Staley is following at this point we will observe him, this could be due to recent surgery or stenosis and may improves later on Has persistent hyperkalemia and then we need to resume Veltassa daily
[2018-09-17 13:10] LABS: Bacteria,Urine Rare /hpf; Bilirubin,Urine Negative (Negative); Clarity,Urine Hazy (Clear); Color,Urine Yellow (Yellw/Straw); Glucose,Urine (UA) 150 mg/dL (Negative); Leukocyte Esterase,Urine Negative (Negative); Mucus,Urine Few /lpf (Occasional); Nitrite,Urine Negative (Negative)
[2018-09-17] MEDS: predniSONE 10 MG Tablet PO SCH (14:19)
[2018-09-17] MEDS: Sodium Bicarbonate 650 MG Tablet PO SCH (14:20)
[2018-09-17] MEDS: amLODIPine 10 MG Tablet PO SCH (14:20)
[2018-09-17] MEDS: Nystatin Liq 500,000 UNIT/5 ML UDC SWISH-SWAL SCH ×2 (14:21→21:00)
[2018-09-17 14:22] LABS: Alanine Aminotransferase 43 U/L (12-78); Albumin 2.7 g/dL (3.4-5.0); Anion Gap 3 meq/L (5-15); Aspartate Aminotransferase 18 U/L (15-37); Blood Urea Nitrogen 43 mg/dL (7-18); Calcium 9.8 mg/dL (8.5-10.1); Carbon Dioxide 18.6 meq/L (21.0-32.0); Chloride 119 meq/L (98-107); Glomerular Filtration Rate 32 mL/min (>89); Glucose,Random 154 mg/dL (74-106); Magnesium 1.6 mg/dL (1.5-2.5); Phosphorus 2.4 mg/dL (2.5-4.9); Sodium 141 meq/L (136-145)
[2018-09-17 14:23] LABS: Alkaline Phosphatase 156 U/L (45-117); Total Protein 6.4 g/dL (6.4-8.2)
[2018-09-17 14:28] LABS: Potassium 6.6 meq/L (3.5-5.1)
[2018-09-17] MEDS ORDERED: Sodium Polystyrene Sulfonate/Sorbitol Liq 15 GM/60 ML UDC PO ONE (14:43)
[2018-09-17] MEDS ORDERED: Dextrose 50% in Water 50 ML Vial IV.PUSH ONE (14:43)
--- NOTE | 2018-09-17 15:25 | P.CONTS ---
History of Present Illness Service: Transplant Surgery Consult date: 09/17/18 Requesting Physician: Morgan Ku Reason for Consult: Elevated creatinine, hyperkalemia s/p recent transplant Primary Care Provider: UNKNOWN Chief Complaint: Elevated creatinine, hyperkalemia s/p recent transplant History of Present Illness: Mr Gonzalez is a 58 yom with high PRA, who underwent DDKT to [facility] on 09/03/2018. patient was noted to have hyperkalemia last Sunday. Treated with kayexalate x1. Plans were made for him to start Veltassa, but as of today, he has not received the medication. Was noted to have persistent hyperkalemia today, with elevated creatinine from prior lab draw. Has some discomfort at his graft site with movement only. None while not moving reportedly. Denies N/V/ diarrhea. Says his urine output has been increasing. No decrease noted in the last 24-48 hours. Prograf was 18.3 yesterday. Held since last night, with plans to decrease dose when resumed. Review of Systems Constitutional: Denies anorexia, Denies body ache(s), Denies chills, Denies daytime sleepiness, Denies excessive sweating, Denies fatigue, Denies fever(s), Denies headache(s), Denies increased appetite, Denies lack of energy, Denies malaise, Denies night sweats, Denies weakness, Denies weight gain, Denies weight loss, Denies other Eyes: Denies blind spots, Denies blurry vision, Denies bulging eyes, Denies change in vision, Denies double vision, Denies discharge, Denies dry eyes, Denies floaters, Denies irritation, Denies itchy eyes, Denies loss of vision, Denies pain, Denies requires corrective lenses, Denies sensitivity to light, Denies other Ears, Nose, Mouth, and Throat: Denies abnormal hearing, Denies bleeding gums, Denies bad breath, Denies change in voice, Denies dental pain, Denies difficulty swallowing, Denies dizziness, Denies dry mouth, Denies ear discharge , Denies ear pain, Denies facial pain, Denies headache(s), Denies hearing loss, Denies hoarseness, Denies lip swelling, Denies nosebleed, Denies mouth lesions, Denies mouth pain, Denies nasal congestion, Denies nasal discharge, Denies nasal obstruction, Denies nasal trauma, Denies neck lump, Denies neck pain, Denies nose pain, Denies pain with swallowing, Denies poor balance, Denies post nasal drip, Denies ringing in the ears, Denies sinus pain, Denies sinus pressure , Denies sore throat, Denies throat swelling, Denies tongue swelling, Denies other Cardiovascular: Denies chest pain, Denies chest pain at rest, Denies chest pain with activity, Denies excessive sweating, Denies fainting, Denies fast heart rate, Denies foot swelling, Denies generalized swelling, Denies irregular heart rhythm, Denies leg pain with activity, Denies leg sores, Denies leg swelling, Denies lightheadedness, Denies radiating jaw, neck or arm pain, Denies rapid, pounding, or irregular heartbeat, Denies shortness of breath, Denies shortness of breath with activity, Denies shortness of breath when lying down, Denies shortness of breath causing sudden awakening, Denies slow heart rate, Denies other Respiratory: Denies change in phlegm color, Denies chest congestion, Denies cough, Denies coughing up blood, Denies excessive phlegm production, Denies pain on inspiration, Denies pain with cough, Denies shortness of breath, Denies shortness of breath with activity, Denies snoring, Denies stridor, Denies wheezing, Denies other Gastrointestinal: Denies abdominal pain, Denies belching, Denies black, tarry stools, Denies bloating, Denies bright, red blood in stools, Denies change in bowel habits, Denies constant urge to pass stool, Denies change in stools, Denies coffee ground vomit, Denies constipation, Denies cramping, Denies difficulty swallowing, Denies excessive passing of gas, Denies feeling full early, Denies heartburn, Denies incontinent of stools, Denies loose stools, Denies nausea, Denies pain with swallowing, Denies vomiting, Denies vomiting blood, Denies other Comments: minimal postop pain Genitourinary: Denies blood in semen, Denies blood in urine, Denies decreased urination, Denies difficulty urinating, Denies difficulty with ejaculations, Denies erectile dysfunction, Denies genital lesions, Denies genital pain, Denies painful urination, Denies side pain, Denies frequent nighttime urination , Denies painful ejaculations, Denies penile discharge, Denies scrotal swelling , Denies testicle lump, Denies testicle pain, Denies urinary frequency, Denies urinary hesitancy, Denies urinary incontinence, Denies urinary urgency, Denies other Comments: No gross hematuria Musculoskeletal: Denies abnormal walking, Denies back pain, Denies body aches, Denies decreased muscle mass, Denies deformity, Denies joint pain, Denies joint swelling, Denies limited joint movement, Denies loss of height, Denies muscle cramps, Denies muscle weakness, Denies neck pain, Denies numbness, Denies radiating pain into limb, Denies stiffness, Denies tingling, Denies other Skin/Breast: Denies acne, Denies bleeding lesions, Denies boil, Denies breast swelling, Denies breast skin changes, Denies breast pain, Denies breast lump, Denies change in breast shape, Denies change in hair, Denies change in skin color, Denies changing lesions, Denies dry skin, Denies excessive hair growth, Denies hair loss, Denies itching, Denies lesions, Denies nail changes, Denies new lesions, Denies nipple discharge, Denies non-healing lesions, Denies redness , Denies sensitivity to light, Denies rash, Denies skin pain, Denies skin ulcer , Denies sores, Denies stretch welsh, Denies unusual bruising, Denies wounds, Denies yellowing of the skin, Denies other Neurologic: Denies abnormal hearing, Denies abnormal movements, Denies abnormal speech, Denies abnormal walking, Denies behavioral changes, Denies burning sensations, Denies confusion, Denies dizziness, Denies fainting, Denies frequent falls, Denies headache(s), Denies lack of coordination, Denies localized weakness, Denies loss of vision, Denies memory loss, Denies numbness, Denies other visual disturbances, Denies radiating pain, Denies restless legs, Denies convulsions, Denies seizure-like activity, Denies sensory deficit, Denies tingling, Denies tingling/numbness/burning sensations, Denies tremor(s), Denies unsteadiness, Denies weakness, Denies other Psychiatric: Denies abnormal sleep pattern, Denies anxiety, Denies behavioral changes, Denies change in appetite, Denies change in sex drive, Denies confusion , Denies depression, Denies difficulty concentrating, Denies hearing things others do not hear, Denies hopelessness, Denies irritability, Denies lack of enjoyment, Denies memory loss, Denies mood swings, Denies panic attacks, Denies paranoia, Denies seeing things others do not see, Denies sensing things others do not sense, Denies tactile hallucinations, Denies thoughts of hurting/killing others, Denies thoughts of hurting/killing yourself, Denies other Endocrine: Denies cold intolerance, Denies excessive sweating, Denies flushing, Denies heat intolerance, Denies increased hunger, Denies increased thirst, Denies increased urination, Denies rapid, pounding, or irregular heartbeat, Denies other Hematologic/Lymphatic: Denies easy bleeding, Denies easy bruising, Denies enlarged lymph nodes, Denies other Allergic/Immunologic: Denies GI upset with certain foods, Denies hives, Denies itchy eyes, Denies lip swelling, Denies seasonal runny nose, Denies throat swelling, Denies tongue swelling, Denies wheezing, Denies other PMFSH - History History Provided By: Patient - Medical History Medical History: Medical History (Last Reviewed 09/17/18 @ 14:54 by Fermín Staley MD) AVF (arteriovenous fistula) Deep vein blood clot of left lower extremity Diabetes mellitus HTN (hypertension) Kidney transplant failure Pneumonia Squamous cell carcinoma of skin of left lower extremity - Surgical History Surgical History: Surgical History (Last Reviewed 09/17/18 @ 14:54 by Fermín Staley MD) H/O elbow surgery Transplant recipient - Family History Family History: Family History (Last Reviewed 09/17/18 @ 14:54 by Fermín Staley MD) Mother Kidney failure HTN (hypertension) Sister Kidney failure Uncle Kidney failure - Social History I have reviewed the patient's Social History: Yes - Tobacco History Second Hand Smoke Exposure: No Smoking Status: Never smoker - Alcohol History How Often Do You Have a Drink Containing Alcohol: Never - Substance Use History Substance History: No History of Abuse - Travel History History of Recent Travel: No Recent Travel in the [facility] Within the Last 8 Weeks: No Recent Travel Out of the Country Within the Last 8 Weeks: No - Immunization History Tetanus Immunization: <5 Years Medications and Allergies Active Medications: Active Medications Amlodipine Besylate (Norvasc) 10 mg PO DAILY [facility] Last Admin: 09/17/18 14:20 Dose: Not Given Atorvastatin Calcium (Lipitor) 40 mg PO DAILY [facility] Last Admin: 09/17/18 14:21 Dose: 40 mg Sodium Chloride (Ns Inj) 1,000 mls @ 125 mls/hr IV.CONT .Q8H [facility] Stop: 09/17/18 18:59 Last Admin: 09/17/18 13:21 Dose: 125 mls/hr Metoprolol Succinate (Toprol Xl) 50 mg PO DAILY [facility] Last Admin: 09/17/18 14:20 Dose: Not Given Mycophenolate Mofetil (Cellcept) 1,000 mg PO BID@0600,1800 [facility] Nystatin (Mycostatin Liq) 5 ml SWISH-SWAL QID [facility] Last Admin: 09/17/18 14:21 Dose: 5 ml Pantoprazole Sodium (Protonix) 40 mg PO DAILY [facility] Last Admin: 09/17/18 14:21 Dose: 40 mg Patiromer (Veltassa Pkt) 16.8 gm PO DAILY [facility] Prednisone (Deltasone) 10 mg PO DAILY [facility] Last Admin: 09/17/18 14:19 Dose: Not Given Sodium Bicarbonate (Sodium Bicarbonate) 650 mg PO BID [facility] Last Admin: 09/17/18 14:20 Dose: Not Given Sodium Chloride (Ns Flush) 2 ml IV.FLUSH PRN PRN PRN Reason: FLUSH AFTER USING IV ACCESS Tacrolimus (Prograf) 0.5 mg PO BID@0600,1800 [facility] Valganciclovir (Valcyte) 450 mg PO DAILY [facility] Allergies Allergy/AdvReac Type Severity Reaction Status Date / Time piperacillin Allergy Severe Facial Verified 09/17/18 10:51 Swelling tazobactam Allergy Severe Facial Verified 09/17/18 10:51 Swelling Home Medications Medication Instructions Recorded Confirmed Type atorvastatin 40 mg PO DAILY 09/03/18 09/17/18 History mycophenolate mofetil 500 mg PO DAILY 09/17/18 09/17/18 History mycophenolate mofetil [CellCept] 500 mg PO DAILY 09/17/18 09/17/18 History sodium bicarbonate 500 mg PO DAILY 09/17/18 09/17/18 History Physical Exam Vital signs: Vital Signs 09/17/18 10:33 09/17/18 10:47 09/17/18 13:57 Temperature 98.3 F Pulse Rate 65 64 63 Respiratory Rate 20 20 22 Blood Pressure 143/73 H 183/88 H 156/83 H Pulse Oximetry 100 100 99 Intake & Output 09/16/18 09/17/18 09/17/18 18:59 06:59 18:59 Weight 97.522 kg - Constitutional no acute distress - Routine HEENT Exam Head: Present: normocephalic, atraumatic Eye: Present: EOMI ENT: Present: mucous membranes moist - Routine Neck Exam Present: supple, full ROM - Routine Respiratory Exam Present: CTA bilaterally - Routine Cardiovascular Exam Present: RRR, S1, S2 - Routine Abdominal Exam Present: soft, normoactive bowel sounds - Routine Extremities Exam Present: pulses intact - Routine Skin Exam Present: intact - Routine Neurological Exam Present: alert, oriented X3 - Detailed Neurological Exam: Coma Scale Verbal Response: Oriented - Routine Psychiatric Exam Present: normal affect, normal thought process Assessment and Plan - Assessment (1) Elevated serum creatinine Code(s): R79.89 - Other specified abnormal findings of blood chemistry Status : Acute (2) Kidney transplant recipient Code(s): Z94.0 - Kidney transplant status Status: Acute (3) Hyperkalemia Code(s): E87.5 - Hyperkalemia Status: Acute - Plan Mr Gonzalez is a 58 yom who underwent a DDKT to the left iliac fossa on 2017. Creat was slowly trending down. Noted to have some hyperkalemia few days ago, which has persisted. Then noted to have an elevated prograf level yesterday. Then today his creatinine increased from 1.87 to 2.41, which is an upward trend from prior day. In speaking with him, there was some delay in getting his veltassa med, so the only treatment he received for the hyperkalemia , so far, was the kayexalate on Sunday. Of note his renal transplant US today, shows a velocity is in the the 400s. Not sure what to make of this. No tardus parvus type waveform is appreciated. Also the RIs are reasonable. Consider repeating US in 1-2 weeks. Agree with admission, holding prograf and then resuming when appropriate. Case briefly d/w Dr Sarmiento
[2018-09-18 05:08] LABS: Baso # (Auto) 0.1 th/mm3 (0.0-0.2); Baso % (Auto) 0.8 % (0.0-2.0); Eos # (Auto) 0.3 th/mm3 (0.0-0.4); Eos % (Auto) 2.8 % (0.0-4.0); Hematocrit 33.7 % (39.0-51.0); Hemoglobin 11.5 gm/dL (13.0-17.0); Lymph # (Auto) 0.5 th/mm3 (1.0-4.8); Lymph % (Auto) 5.2 % (9.0-44.0); Mean Corpuscular Hemoglobin 31.4 pg (27.0-34.0); Mean Corpuscular Volume 92.3 fL (80.0-100.0); Mean Platelet Volume 7.9 fL (7.0-11.0); Mono # (Auto) 0.6 th/mm3 (0.0-0.9); Mono % (Auto) 6.1 % (0.0-8.0); Neut # (Auto) 8.3 th/mm3 (1.8-7.7); Neut % (Auto) 85.1 % (16.0-70.0); Platelet Count 160 th/mm3 (150-450); Red Blood Count 3.65 mil/mm3 (4.50-5.90); Red Cell Distribution Width 16.3 % (11.6-17.2); White Blood Count 9.8 th/mm3 (4.0-11.0)
[2018-09-18 05:37] LABS: Albumin 2.6 g/dL (3.4-5.0); Calcium 9.7 mg/dL (8.5-10.1); Carbon Dioxide 14.8 meq/L (21.0-32.0); Magnesium 1.4 mg/dL (1.5-2.5); Phosphorus 2.1 mg/dL (2.5-4.9); Potassium 5.5 meq/L (3.5-5.1)
[2018-09-18] MEDS: Sodium Bicarbonate 650 MG Tablet PO SCH ×3 (06:36→22:25)
[2018-09-18] MEDS: Tacrolimus 0.5 MG Capsule PO SCH ×2 (07:21→17:49)
[2018-09-18] MEDS: Nystatin Liq 500,000 UNIT/5 ML UDC SWISH-SWAL SCH ×3 (07:42→14:07)
[2018-09-18] MEDS: amLODIPine 10 MG Tablet PO SCH (10:02)
[2018-09-18] MEDS: predniSONE 10 MG Tablet PO SCH (10:03)
--- NOTE | 2018-09-18 12:37 | P.PNTS ---
Subjective Interval history: No new c/o. Feels okay Physical Exam Vital signs: Vital Signs 09/17/18 13:57 09/17/18 17:15 09/17/18 20:00 Temperature 97.6 F 97.7 F Pulse Rate 63 66 65 Respiratory Rate 22 20 18 Blood Pressure 156/83 H 169/82 H 149/78 H Pulse Oximetry 99 100 97 09/18/18 00:00 09/18/18 04:00 Temperature 97.7 F 98.5 F Pulse Rate 60 65 Respiratory Rate 18 16 Blood Pressure 158/72 H 153/73 H Pulse Oximetry 97 97 Intake & Output 09/17/18 09/18/18 09/18/18 18:59 06:59 18:59 Intake Total 640 / 640 500 / 500 Output Total 1250 / 1250 Balance -610 / -610 500 / 500 Weight 97.522 kg 101.2 kg Intake: IV 500 / 500 Oral 640 / 640 Output: Urine 1250 / 1250 - Constitutional no acute distress - Routine HEENT Exam Head: Present: normocephalic, atraumatic Eye: Present: EOMI ENT: Present: mucous membranes moist - Routine Neck Exam Present: supple, full ROM - Routine Respiratory Exam Present: CTA bilaterally - Routine Cardiovascular Exam Present: RRR, S1, S2 - Routine Abdominal Exam Present: soft, normoactive bowel sounds - Routine Extremities Exam Present: pulses intact - Routine Skin Exam Present: intact - Routine Neurological Exam Present: alert, oriented X3 - Detailed Neurological Exam: Coma Scale Verbal Response: Oriented - Routine Psychiatric Exam Present: normal affect, normal thought process Results - Labs CBC & Chem 7: 09/18/18 04:20 09/18/18 04:20 Laboratory Results - last 24 hr 09/17/18 09/17/18 09/17/18 12:45 13:53 16:49 WBC RBC Hgb Hct MCV MCH MCHC RDW Plt Count MPV Neut % (Auto) Lymph % (Auto) [place] % (Auto) Eos % (Auto) Baso % (Auto) Neut # (Auto) Lymph # (Auto) [place] # (Auto) Eos # (Auto) Baso # (Auto) WBC Differential Differential Comment Sodium 141 Potassium 6.6 H* Chloride 119 H Carbon Dioxide 18.6 L Anion Gap 3 L BUN 43 H Creatinine 2.17 H Estimated GFR 32 L POC Glucose 89 Random Glucose 154 H Calcium 9.8 D Phosphorus 2.4 L Magnesium 1.6 Total Bilirubin 0.4 AST 18 ALT 43 Alkaline Phosphatase 156 H Total Protein 6.4 Albumin 2.7 L Urine Color Yellow Urine Clarity Hazy H Urine pH 5.0 Ur Specific [place] 1.020 Urine Protein 100 H Urine Glucose (UA) 150 H Urine Ketones Negative Urine Occult Blood Small H Urine Nitrate Negative Urine Bilirubin Negative Urine Urobilinogen Less than 2 Ur Leukocyte Esterase Negative Urine RBC 16 H Urine WBC 7 H Urine Bacteria Rare H Urine Mucus Few H Micro UA Comment Culture not ind Ur Microscopic Review Not Reportable Urine Culture Comments Culture not ind Tacrolimus 09/18/18 09/18/18 09/18/18 04:20 04:20 04:20 WBC 9.8 RBC 3.65 L Hgb 11.5 L Hct 33.7 L MCV 92.3 MCH 31.4 MCHC 34.0 RDW 16.3 Plt Count 160 MPV 7.9 Neut % (Auto) 85.1 H Lymph % (Auto) 5.2 L [place] % (Auto) 6.1 Eos % (Auto) 2.8 Baso % (Auto) 0.8 Neut # (Auto) 8.3 H Lymph # (Auto) 0.5 L [place] # (Auto) 0.6 Eos # (Auto) 0.3 Baso # (Auto) 0.1 WBC Differential . Differential Comment Auto diff final Sodium 141 Potassium 5.5 H D Chloride 120 H Carbon Dioxide 14.8 L Anion Gap 6 BUN 37 H Creatinine 1.80 H Estimated GFR 39 L POC Glucose Random Glucose 103 Calcium 9.7 Phosphorus 2.1 L Magnesium 1.4 L Total Bilirubin AST ALT Alkaline Phosphatase Total Protein Albumin 2.6 L Urine Color Urine Clarity Urine pH Ur Specific [place] Urine Protein Urine Glucose (UA) Urine Ketones Urine Occult Blood Urine Nitrate Urine Bilirubin Urine Urobilinogen Ur Leukocyte Esterase Urine RBC Urine WBC Urine Bacteria Urine Mucus Micro UA Comment Ur Microscopic Review Urine Culture Comments Tacrolimus 7.7 - Imaging Impressions Renal Ultrasound 09/17/18 10:51 CONCLUSION: 1. Elevated transplant artery flow velocity 2. Flow and resistive indices in the parenchyma within normal limits 3. No evidence of hydronephrosis Assessment and Plan - Assessment (1) Elevated serum creatinine Code(s): R79.89 - Other specified abnormal findings of blood chemistry Status : Acute (2) Kidney transplant recipient Code(s): Z94.0 - Kidney transplant status Status: Acute (3) Hyperkalemia Code(s): E87.5 - Hyperkalemia Status: Acute - Plan Mr Gonzalez is a 58 yom who underwent a DDKT to the left iliac fossa on 2017. Creat was slowly trending down. Noted to have some hyperkalemia few days ago, which has persisted. Then noted to have an elevated prograf level yesterday. Creatinine decreased to 1.80. K still 5.5, but decreased from admit. Continue veltassa. Defer disposition to Dr Ku
--- NOTE | 2018-09-18 13:36 | P.DIET ---
Nutritional Evaluation Type of nutrition evaluation: initial Screening comments: Nutrition Assessment s/p DDKT on 09/03/2018 Subjective Subjective Comments: Pt states he feels fine, is eating well and has no complaints. He states both he and his have good knowledge of the potassium content of foods. Objective - Diagnosis S/P Kidney Transplant with Hyperkalemia - Objective Body Mass Index: 30.3 [place] body weight: 81 kg % IBW: 125 Body Weight Used for Calculations: IBW Energy Needs - Lower Range (kCal/kg): 28 Energy Needs - Upper Range (kCal/kg): 33 Lower Limit kCal/kg (kCals): 2,268 Upper Limit kCal/kg (kCals): 2,673 Lower Limit Protein Factor (Grams per Kg): 1.2 Upper Limit Protein Factor (Grams per Kg): 1.5 Lower Protein Needs (Protein): 97 Upper Protein Needs (Protein): 122 Estimated Fluid Needs (ml): 3,000 Dietitian Reviewed in Medical Record: Current diet, Curent medications, Intake & Output, Labs, Medical history Diet Order: 2gmNa, 60meqK Oral Diet Intake Amount: Good 75-90% Objective Comments: Labs of note: K+ 5.5, Phos 2.1, Mg 1.4, Cr 1.80 Meds of note: Prograf 7.7 Assessment Assessment: Pt at nutritional risk r/t dx and current clinical status. Pt s/p kidney transplant 09/03/18, admitted with hyperkalemia. K+ level is better today at 5.5 and Cr is down close to pt's baseline at 1.80. Pt's nutritional needs as assessed above. His PO intake is good, he has no complaints at this time. Pt is able to verbalize high K+ foods to avoid, expect good compliance. Will continue to monitor clinical course while in hospital and then follow pt in outpatient clinic after discharge. Dietitian to Monitor: Electrolytes, Renal labs, Intake & Output, Diet tolerance , Weight change, PO Intake, Medical course
--- NOTE | 2018-09-18 13:49 | P.HPNP ---
History of Present Illness Service: Transplant nephrology Primary Care Physician: UNKNOWN Chief Complaint: Abnormal labs History of Present Illness: Patient is a 58-year-old white male with history of second kidney transplant on September 03, he went home and did well, he came back as outpatient yesterday and his creatinine was declining, however his tacrolimus levels were high at 18.3 he was told to hold his afternoon dose of tacrolimus which he did then the levels continue to remain at 13.6 and came down to 7.7 this morning, he did have elevation in creatinine 2.4 came down to 1.8 after hydration baseline creatinine was 1.8, he denies any dysuria or burning he did have pain over the operative site and increases with movement he has no discharge no fevers, His potassium was elevated and was supposed to take Veltassa however he did not receive the medication and came back today with a potassium of 6.7, today it came down to 5.5 - Diagnosis (1) Hyperkalemia (2) HTN (hypertension) (3) Kidney transplant recipient Inpatient Certification: I certify that the inpatient services were ordered in accordance with Medicare regulations governing the order. This includes certification that hospital inpatient services are reasonable and necessary and in the case of services not specified as inpatient-only under 42 CFR 419.22(n), that they are appropriately provided as inpatient services in accordance to with the 2-midnight benchmark under 43 CFR 412.3(e) Estimated Total Length of Stay (Days): 3 Plans for Post Hospital Care: Home Review of Systems other Constitutional: Denies anorexia, Denies body ache(s), Denies chills, Denies daytime sleepiness, Denies excessive sweating, Denies fatigue, Denies fever(s), Denies headache(s), Denies increased appetite, Denies lack of energy, Denies malaise, Denies night sweats, Denies weakness, Denies weight gain, Denies weight loss, Denies other Eyes: Denies blind spots, Denies blurry vision, Denies bulging eyes, Denies change in vision, Denies double vision, Denies discharge, Denies dry eyes, Denies floaters, Denies irritation, Denies itchy eyes, Denies loss of vision, Denies pain, Denies requires corrective lenses, Denies sensitivity to light, Denies other Ears, Nose, Mouth, and Throat: Denies abnormal hearing, Denies bleeding gums, Denies bad breath, Denies change in voice, Denies dental pain, Denies difficulty swallowing, Denies dizziness, Denies dry mouth, Denies ear discharge , Denies ear pain, Denies facial pain, Denies headache(s), Denies hearing loss, Denies hoarseness, Denies lip swelling, Denies nosebleed, Denies mouth lesions, Denies mouth pain, Denies nasal congestion, Denies nasal discharge, Denies nasal obstruction, Denies nasal trauma, Denies neck lump, Denies neck pain, Denies nose pain, Denies pain with swallowing, Denies poor balance, Denies post nasal drip, Denies ringing in the ears, Denies sinus pain, Denies sinus pressure , Denies sore throat, Denies throat swelling, Denies tongue swelling, Denies other Cardiovascular: Denies chest pain, Denies chest pain at rest, Denies chest pain with activity, Denies excessive sweating, Denies fainting, Denies fast heart rate, Denies foot swelling, Denies generalized swelling, Denies irregular heart rhythm, Denies leg pain with activity, Denies leg sores, Denies leg swelling, Denies lightheadedness, Denies radiating jaw, neck or arm pain, Denies rapid, pounding, or irregular heartbeat, Denies shortness of breath, Denies shortness of breath with activity, Denies shortness of breath when lying down, Denies shortness of breath causing sudden awakening, Denies slow heart rate, Denies other Gastrointestinal: Reports abdominal pain (Due to recent transplant on left side) Genitourinary: Denies blood in semen, Denies blood in urine, Denies decreased urination, Denies difficulty urinating, Denies difficulty with ejaculations, Denies erectile dysfunction, Denies genital lesions, Denies genital pain, Denies painful urination, Denies side pain, Denies frequent nighttime urination , Denies painful ejaculations, Denies penile discharge, Denies scrotal swelling , Denies testicle lump, Denies testicle pain, Denies urinary frequency, Denies urinary hesitancy, Denies urinary incontinence, Denies urinary urgency, Denies other Musculoskeletal: Denies abnormal walking, Denies back pain, Denies body aches, Denies decreased muscle mass, Denies deformity, Denies joint pain, Denies joint swelling, Denies limited joint movement, Denies loss of height, Denies muscle cramps, Denies muscle weakness, Denies neck pain, Denies numbness, Denies radiating pain into limb, Denies stiffness, Denies tingling, Denies other Skin/Breast: Denies acne, Denies bleeding lesions, Denies boil, Denies breast swelling, Denies breast skin changes, Denies breast pain, Denies breast lump, Denies change in breast shape, Denies change in hair, Denies change in skin color, Denies changing lesions, Denies dry skin, Denies excessive hair growth, Denies hair loss, Denies itching, Denies lesions, Denies nail changes, Denies new lesions, Denies nipple discharge, Denies non-healing lesions, Denies redness , Denies sensitivity to light, Denies rash, Denies skin pain, Denies skin ulcer , Denies sores, Denies stretch welsh, Denies unusual bruising, Denies wounds, Denies yellowing of the skin, Denies other Psychiatric: Denies abnormal sleep pattern, Denies anxiety, Denies behavioral changes, Denies change in appetite, Denies change in sex drive, Denies confusion , Denies depression, Denies difficulty concentrating, Denies hearing things others do not hear, Denies hopelessness, Denies irritability, Denies lack of enjoyment, Denies memory loss, Denies mood swings, Denies panic attacks, Denies paranoia, Denies seeing things others do not see, Denies sensing things others do not sense, Denies tactile hallucinations, Denies thoughts of hurting/killing others, Denies thoughts of hurting/killing yourself, Denies other PMFSH - History History Provided By: Patient - Medical History Medical History: Medical History (Last Reviewed 09/18/18 @ 13:47 by Morgan Ku MD) AVF (arteriovenous fistula) Deep vein blood clot of left lower extremity Diabetes mellitus HTN (hypertension) Kidney transplant failure Pneumonia Squamous cell carcinoma of skin of left lower extremity - Surgical History Surgical History: Surgical History (Last Reviewed 09/18/18 @ 13:47 by Morgan Ku MD) H/O elbow surgery Transplant recipient - Family History Family History: Family History (Last Reviewed 11/28/18 @ 13:47 by Morgan Ku MD) Mother Kidney failure HTN (hypertension) Sister Kidney failure Uncle Kidney failure - Social History I have reviewed the patient's Social History: Yes - Tobacco History Second Hand Smoke Exposure: No Smoking Status: Never smoker - Alcohol History How Often Do You Have a Drink Containing Alcohol: Never - Substance Use History Substance History: No History of Abuse - Travel History History of Recent Travel: No Recent Travel in the [place] Within the Last 8 Weeks: No Recent Travel Out of the Country Within the Last 8 Weeks: No - Immunization History Tetanus Immunization: <5 Years Medications and Allergies Active Medications: Active Medications Amlodipine Besylate (Norvasc) 10 mg PO DAILY [facility] Last Admin: 09/18/18 10:02 Dose: 10 mg Atorvastatin Calcium (Lipitor) 40 mg PO DAILY [facility] Last Admin: 09/18/18 10:03 Dose: 40 mg Metoprolol Succinate (Toprol Xl) 50 mg PO DAILY [facility] Last Admin: 09/18/18 10:03 Dose: 50 mg Mycophenolate Mofetil (Cellcept) 1,000 mg PO BID@0600,1800 [facility] Last Admin: 09/18/18 06:36 Dose: 1,000 mg Nystatin (Mycostatin Liq) 5 ml SWISH-SWAL QID [facility] Last Admin: 09/18/18 10:02 Dose: 5 ml Pantoprazole Sodium (Protonix) 40 mg PO DAILY [facility] Last Admin: 09/18/18 10:03 Dose: 40 mg Patiromer (Veltassa Pkt) 16.8 gm PO DAILY [facility] Last Admin: 09/18/18 10:01 Dose: 16.8 gm Prednisone (Deltasone) 10 mg PO DAILY [facility] Last Admin: 09/18/18 10:03 Dose: 10 mg Sodium Bicarbonate (Sodium Bicarbonate) 650 mg PO BID [facility] Last Admin: 09/18/18 10:02 Dose: 650 mg Sodium Chloride (Ns Flush) 2 ml IV.FLUSH PRN PRN PRN Reason: FLUSH AFTER USING IV ACCESS Tacrolimus (Prograf) 0.5 mg PO BID@0600,1800 [facility] Last Admin: 09/18/18 07:21 Dose: Not Given Valganciclovir (Valcyte) 450 mg PO DAILY [facility] Last Admin: 09/18/18 10:03 Dose: 450 mg Allergies Allergy/AdvReac Type Severity Reaction Status Date / Time piperacillin Allergy Severe Facial Verified 09/17/18 10:51 Swelling tazobactam Allergy Severe Facial Verified 09/17/18 10:51 Swelling Home Medications Medication Instructions Recorded Confirmed Type atorvastatin 40 mg PO DAILY 09/03/18 09/17/18 History mycophenolate mofetil 500 mg PO DAILY 09/17/18 09/17/18 History mycophenolate mofetil [CellCept] 500 mg PO DAILY 09/17/18 09/17/18 History sodium bicarbonate 500 mg PO DAILY 09/17/18 09/17/18 History Exam Vital signs: Vital Signs 09/17/18 13:57 09/17/18 17:15 09/17/18 20:00 Temperature 97.6 F 97.7 F Pulse Rate 63 66 65 Respiratory Rate 22 20 18 Blood Pressure 156/83 H 169/82 H 149/78 H Pulse Oximetry 99 100 97 09/18/18 00:00 09/18/18 04:00 Temperature 97.7 F 98.5 F Pulse Rate 60 65 Respiratory Rate 18 16 Blood Pressure 158/72 H 153/73 H Pulse Oximetry 97 97 Intake & Output 09/17/18 09/18/18 09/18/18 18:59 06:59 18:59 Intake Total 640 / 640 500 / 500 Output Total 1250 / 1250 Balance -610 / -610 500 / 500 Weight 97.522 kg 101.2 kg Intake: IV 500 / 500 Oral 640 / 640 Output: Urine 1250 / 1250 Narrative: GENERAL: Well-nourished, well-developed patient. SKIN: Warm and dry. HEAD: Normocephalic. EYES: No scleral icterus. No injection or drainage. NECK: Supple, trachea midline. No JVD or lymphadenopathy. CARDIOVASCULAR: Regular rate and rhythm without murmurs, gallops, or rubs. RESPIRATORY: Breath sounds equal bilaterally. No accessory muscle use. GASTROINTESTINAL: Abdomen soft, non-tender, left-sided lower abdominal incision which is healing no drainage EXTREMITIES: No edema NEUROLOGICAL: Awake, alert, and oriented x 3. Non-focal. Results - Lab Results 09/18/18 04:20 09/18/18 04:20 Most recent lab results Calcium 9.7 mg/dL (8.5-10.1) 09/18/18 04:20 Phosphorus 2.1 mg/dL (2.5-4.9) L 09/18/18 04:20 Magnesium 1.4 mg/dL (1.5-2.5) L 09/18/18 04:20 Caprini VTE Risk Assessment Caprini VTE Risk Assessment: Moderate/High Risk (score >= 2) Huseyinrini Risk Assessment Model: Point Value = 1 Point Value = 2 Point Value = 3 Point Value = 5 Age 41-60 Minor surgery BMI > 25 kg/m2 Swollen legs Varicose veins or History of unexplained or recurrent spontaneous Oral contraceptives or hormone replacement Sepsis (< 1 month) Serious lung disease, including pneumonia (< 1 month) Abnormal pulmonary function Acute myocardial infarction Congestive heart failure (< 1 month) History of inflammatory bowel disease Medical patient at bed rest Age 61-74 Arthroscopic surgery Major open surgery (> 45 min) Laparoscopic surgery (> 45 min) Malignancy Confined to bed (> 72 hours) Immobilizing plaster cast Central venous access Age >= 75 History of VTE Family history of VTE Factor V Leiden Prothrombin [id number] Lupus anticoagulant Anticardiolipin antibodies Elevated serum homocysteine Heparin-induced thrombocytopenia Other congenital or acquired thrombophilia Stroke (< 1 month) Elective arthroplasty Hip, pelvis, or leg fracture Acute spinal cord injury (< 1 month) Prophylaxis Regimen: Total Risk Factor Score Risk Level Prophylaxis Regimen 0-1 Low Early ambulation 2 Moderate Order ONE of the following: *Sequential Compression Device (SCD) *Heparin 5000 units SQ BID 3-4 Higher Order ONE of the following medications: *Heparin 5000 units SQ TID *Enoxaparin/Lovenox 40 mg SQ daily (WT < 150 kg, CrCl > 30 mL/min) *Enoxaparin/Lovenox 30 mg SQ daily (WT < 150 kg, CrCl > 10-29 mL/min) *Enoxaparin/Lovenox 30 mg SQ BID (WT < 150 kg, CrCl > 30 mL/min) AND/OR *Sequential Compression Device (SCD) 5 or more Highest Order ONE of the following medications: *Heparin 5000 units SQ TID (Preferred with Epidurals) *Enoxaparin/Lovenox 40 mg SQ daily (WT < 150 kg, CrCl > 30 mL/min) *Enoxaparin/Lovenox 30 mg SQ daily (WT < 150 kg, CrCl > 10-29 mL/min) *Enoxaparin/Lovenox 30 mg SQ BID (WT < 150 kg, CrCl > 30 mL/min) AND *Sequential Compression Device (SCD) Assessment and Plan - Assessment (1) Hyperkalemia Code(s): E87.5 - Hyperkalemia Status: Acute (2) HTN (hypertension) Code(s): I10 - Essential (primary) hypertension Status: Acute (3) Kidney transplant recipient Code(s): Z94.0 - Kidney transplant status Status: Acute - Plan His tacrolimus remains 7.7 I am going to restart Prograf 0.5 mg twice a day Has persistent hyperkalemia and then we need to resume Veltassa daily Bactrim stop told to do Nystatin swish and spit Nystatin Monitor lab And if stable discharge in a.m. Lovenox ordered
[2018-09-18] MEDS ORDERED: Tacrolimus 0.5 MG Capsule PO ONE (13:51)
[2018-09-18] MEDS: Enoxaparin Inj 30 MG/0.3 ML Syringe SQ SCH (15:12)
[2018-09-18] MEDS: Nystatin Liq 500,000 UNIT/5 ML UDC SWISH-SPIT SCH ×2 (17:49→22:25)
[2018-09-19 06:03] LABS: Baso # (Auto) 0.1 th/mm3 (0.0-0.2); Baso % (Auto) 0.8 % (0.0-2.0); Eos # (Auto) 0.3 th/mm3 (0.0-0.4); Eos % (Auto) 3.1 % (0.0-4.0); Hematocrit 34.5 % (39.0-51.0); Hemoglobin 11.6 gm/dL (13.0-17.0); Lymph # (Auto) 0.4 th/mm3 (1.0-4.8); Mean Corpuscular HGB Conc 33.7 % (32.0-36.0); Mean Corpuscular Hemoglobin 30.8 pg (27.0-34.0); Mean Corpuscular Volume 91.5 fL (80.0-100.0); Mono # (Auto) 0.6 th/mm3 (0.0-0.9); Mono % (Auto) 6.6 % (0.0-8.0); Neut # (Auto) 7.3 th/mm3 (1.8-7.7); Neut % (Auto) 84.5 % (16.0-70.0); Platelet Count 169 th/mm3 (150-450); Red Blood Count 3.77 mil/mm3 (4.50-5.90); Red Cell Distribution Width 16.2 % (11.6-17.2); White Blood Count 8.6 th/mm3 (4.0-11.0)
[2018-09-19 06:30] LABS: Albumin 2.7 g/dL (3.4-5.0); Calcium 10.2 mg/dL (8.5-10.1); Carbon Dioxide 16.5 meq/L (21.0-32.0); Phosphorus 2.1 mg/dL (2.5-4.9); Potassium 5.3 meq/L (3.5-5.1)
[2018-09-19] MEDS: Tacrolimus 0.5 MG Capsule PO SCH (06:48)
[2018-09-19 09:19] VITALS: RESP 17; TEMP 98.2; O2SAT 100
[2018-09-19] MEDS: predniSONE 10 MG Tablet PO SCH (09:22)
[2018-09-19] MEDS: Nystatin Liq 500,000 UNIT/5 ML UDC SWISH-SPIT SCH ×2 (09:22→13:50)
[2018-09-19] MEDS: Sodium Bicarbonate 650 MG Tablet PO SCH (09:22)
[2018-09-19] MEDS: amLODIPine 10 MG Tablet PO SCH (09:22)
[2018-09-19] MEDS: Enoxaparin Inj 30 MG/0.3 ML Syringe SQ SCH (10:03)
--- NOTE | 2018-09-19 10:05 | P.PNTS ---
Subjective Interval history: No new c/o. Feels well. Binder seems to help abd discomfort when ambulating. Physical Exam Vital signs: Vital Signs 09/18/18 14:43 09/18/18 16:00 09/18/18 20:27 Temperature 98 F 98.4 F Pulse Rate 68 65 65 Respiratory Rate 18 16 Blood Pressure 148/68 H 143/78 H Pulse Oximetry 98 09/19/18 00:00 09/19/18 04:00 09/19/18 09:04 Temperature 97.9 F 98 F 98.2 F Pulse Rate 63 76 72 Respiratory Rate 16 16 17 Blood Pressure 145/78 H 163/81 H 146/68 H Pulse Oximetry 97 97 100 Intake & Output 09/18/18 09/19/18 09/19/18 18:59 06:59 18:59 Intake Total 1300 / 1300 420 / 420 Output Total 750 / 750 1325 / 1325 Balance 550 / 550 -905 / -905 Weight 100.5 kg Intake: IV 500 / 500 Oral 800 / 800 420 / 420 Output: Urine 750 / 750 1325 / 1325 Other: Date of Last Bowel Movement 09/18/18 - Constitutional no acute distress - Routine HEENT Exam Head: Present: normocephalic, atraumatic Eye: Present: EOMI ENT: Present: mucous membranes moist - Routine Neck Exam Present: supple, full ROM - Routine Respiratory Exam Present: CTA bilaterally - Routine Cardiovascular Exam Present: RRR, S1, S2 - Routine Abdominal Exam Present: soft, normoactive bowel sounds Comments: Wound CDI without EFT. - Routine Extremities Exam Present: pulses intact - Routine Skin Exam Present: intact - Routine Neurological Exam Present: alert, oriented X3 - Detailed Neurological Exam: Coma Scale Verbal Response: Oriented - Routine Psychiatric Exam Present: normal affect, normal thought process Results - Labs CBC & Chem 7: 09/19/18 05:06 09/19/18 05:06 Laboratory Results - last 24 hr 09/18/18 09/19/18 09/19/18 04:20 05:06 05:06 WBC 8.6 RBC 3.77 L Hgb 11.6 L Hct 34.5 L MCV 91.5 MCH 30.8 MCHC 33.7 RDW 16.2 Plt Count 169 MPV 8.0 Neut % (Auto) 84.5 H Lymph % (Auto) 5.0 L [place] % (Auto) 6.6 Eos % (Auto) 3.1 Baso % (Auto) 0.8 Neut # (Auto) 7.3 Lymph # (Auto) 0.4 L [place] # (Auto) 0.6 Eos # (Auto) 0.3 Baso # (Auto) 0.1 WBC Differential . Differential Comment Auto diff final Sodium 141 Potassium 5.3 H Chloride 118 H Carbon Dioxide 16.5 L Anion Gap 7 BUN 35 H Creatinine 1.70 H Estimated GFR 42 L Random Glucose 98 Calcium 10.2 H Phosphorus 2.1 L Albumin 2.7 L Tacrolimus 7.7 Assessment and Plan - Assessment (1) Elevated serum creatinine Code(s): R79.89 - Other specified abnormal findings of blood chemistry Status : Acute (2) Kidney transplant recipient Code(s): Z94.0 - Kidney transplant status Status: Acute (3) Hyperkalemia Code(s): E87.5 - Hyperkalemia Status: Acute - Plan Mr Gonzalez is a 58 yom who underwent a DDKT to the left iliac fossa on 2017. Creat was slowly trending down. Noted to have some hyperkalemia few days ago, which has persisted. Then noted to have an elevated prograf level yesterday. Creatinine decreased to 1.7. K decreaed to 5.3. Continue veltassa. As patient is a recent transplant with still slowly improving renal function, think that the bleeding risk, as his platelets are most likely still not working well, is too high, so discontinued the prophylactic lovenox. This was discussed with Dr Ku, and he was notified. Probable discharge home Defer prograf dosing (? change to 4 mg bid) and disposition to Dr Ku
[2018-09-19] MEDS ORDERED: Magnesium Oxide 400 MG Tablet PO SCH (10:45)
--- NOTE | 2018-09-19 11:00 | P.DS ---
Date of admission: 09/17/18 13:30 Primary care physician: UNKNOWN Attending physician on discharge: Morgan Ku Anticipated date of discharge: 09/19/18 Brief History from admission: Patient is a 58-year-old white male with history of second kidney transplant on September 03, he went home and did well, he came back as outpatient yesterday and his creatinine was declining, however his tacrolimus levels were high at 18.3 he was told to hold his afternoon dose of tacrolimus which he did then the levels continue to remain at 13.6 and came down to 7.7 this morning, he did have elevation in creatinine 2.4 came down to 1.8 after hydration baseline creatinine was 1.8, he denies any dysuria or burning he did have pain over the operative site and increases with movement he has no discharge no fevers, His potassium was elevated and was supposed to take Veltassa however he did not receive the medication and came back today with a potassium of 6.7, today it came down to 5.5 DS: Diagnosis - Discharge Diagnosis (1) Hyperkalemia Status: Acute Diagnosis: Principal (2) HTN (hypertension) Status: Acute Diagnosis: Secondary (3) Kidney transplant recipient Status: Acute Diagnosis: Secondary DS: Summary Hospital Course: patient was treated for hyperkalemia, stopped Bactrim, adjusted medications, Tacrolimus dose, it was thought he is swaloowing Nystatin with significant rise is Tacrolimus level due to drug to drug interaction, instructed to swish and spit the Nystatin. Lovenox was discontinued by Dr. Staley due to concern with vascular bleeding, used for prophylaxis he did well. Low K diet continue Veltasssa as out patient. Tacrolimus dose up to 4 mg bid follow up as out patient. - Time Spent with Patient Total time spent providing and/or coordinating discharge services: Exam Vital signs: Vital Signs 09/18/18 14:43 09/18/18 16:00 09/18/18 20:27 Temperature 98 F 98.4 F Pulse Rate 68 65 65 Respiratory Rate 18 16 Blood Pressure 148/68 H 143/78 H Pulse Oximetry 98 09/19/18 00:00 09/19/18 04:00 09/19/18 09:04 Temperature 97.9 F 98 F 98.2 F Pulse Rate 63 76 72 Respiratory Rate 16 16 17 Blood Pressure 145/78 H 163/81 H 146/68 H Pulse Oximetry 97 97 100 Intake & Output 09/18/18 09/19/18 09/19/18 18:59 06:59 18:59 Intake Total 1300 / 1300 420 / 420 Output Total 750 / 750 1325 / 1325 Balance 550 / 550 -905 / -905 Weight 100.5 kg Intake: IV 500 / 500 Oral 800 / 800 420 / 420 Output: Urine 750 / 750 1325 / 1325 Other: Date of Last Bowel Movement 09/18/18 Narrative: GENERAL: Well-nourished, well-developed patient. SKIN: Warm and dry. HEAD: Normocephalic. EYES: No scleral icterus. No injection or drainage. NECK: Supple, trachea midline. No JVD or lymphadenopathy. CARDIOVASCULAR: Regular rate and rhythm without murmurs, gallops, or rubs. RESPIRATORY: Breath sounds equal bilaterally. No accessory muscle use. GASTROINTESTINAL: Abdomen soft, non-tender, left-sided lower abdominal incision which is healing no drainage EXTREMITIES: No edema NEUROLOGICAL: Awake, alert, and oriented x 3. Non-focal. Results Procedures completed during hospitalization: US transplant kidney Labs on day of discharge: Labs from last 24 hours 09/19/18 09/19/18 09/19/18 05:06 05:06 05:06 WBC 8.6 RBC 3.77 L Hgb 11.6 L Hct 34.5 L MCV 91.5 MCH 30.8 MCHC 33.7 RDW 16.2 Plt Count 169 MPV 8.0 Neut % (Auto) 84.5 H Lymph % (Auto) 5.0 L Coffey % (Auto) 6.6 Eos % (Auto) 3.1 Baso % (Auto) 0.8 Neut # (Auto) 7.3 Lymph # (Auto) 0.4 L Coffey # (Auto) 0.6 Eos # (Auto) 0.3 Baso # (Auto) 0.1 WBC Differential . Differential Comment Auto diff final Sodium 141 Potassium 5.3 H Chloride 118 H Carbon Dioxide 16.5 L Anion Gap 7 BUN 35 H Creatinine 1.70 H Estimated GFR 42 L Random Glucose 98 Calcium 10.2 H Phosphorus 2.1 L Albumin 2.7 L Tacrolimus Pending 09/18/18 04:20 WBC RBC Hgb Hct MCV MCH MCHC RDW Plt Count MPV Neut % (Auto) Lymph % (Auto) Coffey % (Auto) Eos % (Auto) Baso % (Auto) Neut # (Auto) Lymph # (Auto) Coffey # (Auto) Eos # (Auto) Baso # (Auto) WBC Differential Differential Comment Sodium Potassium Chloride Carbon Dioxide Anion Gap BUN Creatinine Estimated GFR Random Glucose Calcium Phosphorus Albumin Tacrolimus 7.7 - Impressions ITS Impressions Renal Ultrasound 09/17/18 10:51 CONCLUSION: 1. Elevated transplant artery flow velocity 2. Flow and resistive indices in the parenchyma within normal limits 3. No evidence of hydronephrosis Discharge Plan - Discharge Disposition Patient Disposition: 01 Discharge Home - Discharge Condition Condition: Stable - Discharge Order Discharge Orders: Discharge Order (Routine); Ordered 09/19/18 Ordered By: Morgan Ku - Discharge Details Anticipated Discharge Date: 09/19/18 - Physicians Team Primary Care Provider: UNKNOWN, Attending Provider: Morgan Ku
[2018-09-19 13:50] VITALS: BP 141/68; PULSE 66
== END 2018-09-19 15:11 | disposition home or self-care (01) ==
LOC: NEPE 10:13 → NEDA 13:30 → HCPC 17:15
PROVIDERS: ADMIT Internal Medicine Nephrology; ATTEND Internal Medicine Nephrology